=== PATIENT | female | born 1955 | race Caucasian/White ===

== ENCOUNTER → 2017-07-03 | Outpatient (CLI) | payer BC ==
--- NOTE | 2017-07-03 19:19 | Diagnostic Imaging Report ---
EXAMINATION: Bilateral breast ultrasound. INDICATION: Palpable lumps. The patient refuses mammography because of tenderness. TECHNIQUE: All four quadrants and the retroareolar region were examined on this study. FINDINGS: Right breast: At 2:30 position, 10 cm from the nipple, there is a cystic lesion measuring 2 x 1.2 x 1.6 cm. There is a 5 mm hypoechoic nodule within it with no internal vascularity seen. At 3:30 position, 6 cm from the nipple, there is a 9 mm simple cyst. In addition, two simple cysts are seen in the 6 o'clock zone, 5 cm from the nipple up to 9 mm in size. Left breast: The four quadrants and retroareolar region of the left breast demonstrate no underlying abnormality. IMPRESSION: Mildly complicated cystic lesion at 2:30 position, 10 cm from the nipple measuring 2 cm in size with a hypoechoic lesion within the cyst that demonstrates no internal vascularity. This is favored to be related to internal debris or clot rather than a solid nodule. Followup study in six months is recommended to ensure no adverse development. ACR BI-RADS Category 3: Probably benign findings. Dictated by: Dictated on workstation # [id number]
== END ==
LOC: RAD 10:52
PROVIDERS: ATTEND Nurse Practitioner Family
DX: N60.01 Solitary cyst of right breast (principal)

== ENCOUNTER 2017-07-10 11:15 | Outpatient (CLI) | payer BC ==
[~2017-07-10] VITALS: Ht 160 cm; Wt 108.9 kg
[2017-07-10] MEDS ORDERED: SENN-75 PO (14:34)
[2017-07-10] MEDS ORDERED: MAGN500C15 PO (14:34)
[2017-07-10] MEDS ORDERED: PANT40TA3 PO (14:34)
[2017-07-10] MEDS ORDERED: SIMV40TA4 PO (14:34)
[2017-07-10] MEDS ORDERED: RT-ALBUINH IH (14:34)
[2017-07-10] MEDS ORDERED: CHOL5000 PO (14:34)
[2017-07-10] MEDS ORDERED: ACYC400T PO (14:34)
[2017-07-10] MEDS ORDERED: GABA-488 PO (14:34)
[2017-07-10] MEDS ORDERED: LEVO75TA PO (14:34)
[2017-07-10] MEDS ORDERED: MONT10TA24 PO (14:34)
[2017-07-10] MEDS ORDERED: FLUT1DIS27 IH (14:34)
[2017-07-10] MEDS ORDERED: NAPR500T4 PO (14:34)
[2017-07-10] MEDS ORDERED: FLUT1BLS IH (14:34)
[2017-07-10] MEDS ORDERED: ASPI-586 PO (14:34)
== END 2017-07-10 14:35 ==
LOC: PREOP 11:15
PROVIDERS: ATTEND Surgery
DX: Z01.818 Encounter for other preprocedural examination (principal); K21.9 Gastro-esophageal reflux disease without esophagitis

== ENCOUNTER → 2017-07-15 | Outpatient (CLI) | payer BC ==
[~2017-07-15] MED LIST: ACYC400T PO; ASPI-586 PO; CHOL5000 PO; FLUT1BLS IH; FLUT1DIS27 IH; GABA-488 PO; LEVO75TA PO; MAGN500C15 PO; MONT10TA24 PO; NAPR500T4 PO; PANT40TA3 PO; RT-ALBUINH IH; SENN-75 PO; SIMV40TA4 PO
--- NOTE | 2017-07-15 09:51 | Diagnostic Imaging Report ---
PA and lateral views of the chest. Indication COPD. Findings: The lungs are clear. The heart size is normal. No effusion or pneumothorax Mediastinum and carla appear markable. Impression: Unremarkable exam. Dictated by: Dictated on workstation # [id number]
== END ==
LOC: RAD 09:21
PROVIDERS: ATTEND Nurse Practitioner Family
DX: J44.9 Chronic obstructive pulmonary disease, unspecified (principal)
CPT/HCPCS: 71020

== ENCOUNTER → 2017-07-16 | Day surgery (SDC) | payer BC ==
[~2017-07-16] VITALS: Ht 160 cm; Wt 108.9 kg
[~2017-07-16] MED LIST changes: +HURRICAINE EXT TUBE (BENZOCAINE) ONE; +HURRICAINE EXT TUBE (BENZOCAINE) XX PRN; +LACTATED RINGERS 1,000 ML IV STA; +MIDAZOLAM 2 MG/2 ML (VERSED) VIAL IVP PRN; +MIDAZOLAM 2 MG/2 ML (VERSED) VIAL ONE; +PROPOFOL INJECTION 50 ML IV ONE; +fentaNYL INJECTION 100 MCG/2 ML AMP IVP PRN
[2017-07-16 07:55] VITALS: BP 133/75
--- NOTE | 2017-07-16 08:55 | Progress Note-Pre Operative ---
Pre-Operative Progress Note H&P Reviewed The H&P was reviewed, patient examined and no changes noted. Time Seen by Provider: 08:50 Date H&P Reviewed: Jul 16, 2017 Time H&P Reviewed: 08:53 Pre-Operative Diagnosis: Dystonia, Gastritis NINO SAM DO Jul 16, 2017 08:55
--- NOTE | 2017-07-16 09:23 | Progress Note-Post Operative ---
Post-Operative Progess Note Surgeon (s)/Beer Merchant (s) Surgeon NINO SAM DO Beer Merchant: none Pre-Operative Diagnosis Dystonia, Gastritis Post-Operative Diagnosis same and hiatal hernia Procedure & Operative Findings Date of Procedure 07/16/17 Procedure Performed/Findings EGD with bx Anesthesia Type IV sedation by WATCH GUARD GATE Estimated Blood Loss Estimated blood loss (mL): scant Specimens/Packing Specimens Removed duodenal bx antral bx NINO SAM DO Jul 16, 2017 09:23
--- NOTE | 2017-07-16 09:24 | Endoscopy Discharge Instruct ---
Endo Procedure/Findings Findings 1.: Gastritis 2.: Hiatal Hernia Discharge Instructions - Activity: You might feel a little sleepy until tomorrow. This is due to the medicine you received to relax you. Until tomorrow, you should: NOT drive a car, operate machinery or power tools. NOT drink any alcoholic beverages. NOT make any important decisions or sign importortant papers. Do not return to work until tomorrow, unless otherwise instructed. Resume previous activities tomorrow. Diet: Start by taking liquids. If you tolerate liquids, advance to solid food. make appointment for one week Notify Physician - If you experience excessive bleeding, unusual abdominal pain, fever, or chest pain, contact your doctor immediately. Follow-Up: - I have received and understand the above instructions and will call my doctor if I have any further questions. Patient Signature Date Nurse Signature Other (Relationship) NINO SAM DO Jul 16, 2017 09:24
[2017-07-16 09:35] VITALS: BP 124/82
[2017-07-16 10:05] VITALS: BP 125/77
--- NOTE | 2017-07-16 19:49 | OPERATIVE REPORT ---
DATE OF SERVICE: 07/16/2017 PREOPERATIVE DIAGNOSES: 1. Gastritis: 2. Dystonia. POSTOPERATIVE DIAGNOSES: 1. Gastritis: 2. Dystonia. 3. Hiatal hernia. PROCEDURE: EGD with biopsy. SURGEON: Bj Gomez DO CENTER SPECIALISTS: None. ANESTHESIA: IV sedation by the MEDIA LIAISON OFFICER. SPECIMEN: Biopsy from the duodenum and one biopsy from antrum. BLOOD LOSS: Scant. FLUIDS: Per anesthesia. POSTOPERATIVE CONDITION: Stable. INDICATION FOR PROCEDURE: The patient is a 62-year-old female who has been having heartburn type symptoms, they also have been getting coarse and wanted to have EGD to check for reflux, also wanted to have her vocal cords looked at as she had a history of possible paralysis and she said she was worried about the vocal cords. FINDINGS: The patient had some erythema, almost duodenitis and some gastritis. She had a pretty large hiatal hernia, was able to get a couple views of its cord and did not see anything obvious. No large polyps appeared to be moving, took a picture. PROCEDURE NOTE: After informed consent was obtained, the patient was brought to the endoscopy suite, placed in the bed in the left lateral decubitus position. She was administered IV sedation and her vitals were monitored the entire time by the MEDIA LIAISON OFFICER. Inserted the scope, on the way in got a look at her cords, it was good. I was able to get into the esophagus and then down the esophagus into the stomach. Into the first portion of duodenum took a picture, there was a little bit of erythema and elected to do a biopsy here and then pulled back and did another biopsy in the antrum, which was also a little bit erythematous and then carefully pulled the scope back, retroflexed, and saw a pretty large hiatal hernia, took a picture of this and took a picture of the GE junction looked good and then pulled up the esophagus took another picture of the esophagus again this looked good and able to pull up out into the oropharynx, able to take a picture of the cords and did not see anything obvious, but again could not get a very good visualization. She is coughing a little bit and gagging but did get a picture, removed the scope. The patient tolerated the procedure and she was recovered in the endoscopy suite. Job ID: [id number] DocumentID: [id number] Dictated Date: 07/16/2017 09:27:00 Pharmacology Professor Date: 07/16/2017 19:48:24 Dictated By: BJ GOMEZ DO
== END | disposition home or self-care (01) ==
LOC: ENDO 07:50
PROVIDERS: ATTEND Surgery
DX: K29.60 Other gastritis without bleeding (principal); K44.9 Diaphragmatic hernia without obstruction or gangrene; R49.0 Dysphonia; J44.9 Chronic obstructive pulmonary disease, unspecified; Z88.0 Allergy status to penicillin; Z88.1 Allergy status to other antibiotic agents; Z88.2 Allergy status to sulfonamides; E03.9 Hypothyroidism, unspecified; N18.9 Chronic kidney disease, unspecified; E78.5 Hyperlipidemia, unspecified; G47.30 Sleep apnea, unspecified

== ENCOUNTER → 2017-07-23 | Outpatient (CLI) | payer BC ==
[~2017-07-23] MED LIST changes: -HURRICAINE EXT TUBE (BENZOCAINE) ONE; -HURRICAINE EXT TUBE (BENZOCAINE) XX PRN; -LACTATED RINGERS 1,000 ML IV STA; -MIDAZOLAM 2 MG/2 ML (VERSED) VIAL IVP PRN; -MIDAZOLAM 2 MG/2 ML (VERSED) VIAL ONE; -PROPOFOL INJECTION 50 ML IV ONE; +RT-ALBUTEROL SULF 2.5 MG/3 ML PRE-MIX VIAL INH ONE; -fentaNYL INJECTION 100 MCG/2 ML AMP IVP PRN
== END ==
LOC: RT 12:47
PROVIDERS: ATTEND Nurse Practitioner Family
DX: J44.9 Chronic obstructive pulmonary disease, unspecified (principal)
CPT/HCPCS: 94060; 94726; 94729

== ENCOUNTER 2017-10-15 07:58 | Day surgery (SDC) | payer BC ==
[2017-10-15] VITALS (16 sets, daily range): BP systolic 104–153; BP diastolic 46–98
[~2017-10-15] VITALS: Ht 160 cm; Wt 108.9 kg
[~2017-10-15 07:58] MED LIST changes: +NAPR-915 PO; -NAPR500T4 PO; -RT-ALBUTEROL SULF 2.5 MG/3 ML PRE-MIX VIAL INH ONE
[2017-10-15] MEDS ORDERED: LIDOCAINE 1% INJ 50 ML (XYLOCAINE) VIAL ONE (08:20)
[2017-10-15 09:23] LABS: ABSOLUTE RETIC # 55 10e9/L (24-90); BASOPHILS % (AUTO) 0 % (0-10); EOSINOPHILS # (AUTO) 0.1 10^3/uL (0.0-0.3); EOSINOPHILS % (AUTO) 2 % (0-10); HEMATOCRIT 43 % (35-52); HEMOGLOBIN 13.6 G/DL (11.5-16.0); LYMPHOCYTES # (AUTO) 2.1 X 10^3 (1.0-4.0); LYMPHOCYTES % (AUTO) 25 % (12-44); MEAN CORPUSCULAR HEMOGLOBIN 30 PG (25-34); MEAN CORPUSCULAR HGB CONC 31 G/DL (32-36); MEAN CORPUSCULAR VOLUME 97 FL (80-99); MEAN PLATELET VOLUME 11.6 FL (7.4-10.4); MONOCYTES # (AUTO) 0.9 X 10^3 (0.0-1.0); MONOCYTES % (AUTO) 10 % (0-12); NEUTROPHILS # (AUTO) 5.5 X 10^3 (1.8-7.8); NEUTROPHILS % (AUTO) 64 % (42-75); PLATELET COUNT 200 10^3/uL (130-400); RED BLOOD COUNT 4.49 10^6/uL (4.35-5.85); RED CELL DISTRIBUTION WIDTH 13.2 % (10.0-14.5); RETICULOCYTE % 1.22 % (0.50-2.40); WHITE BLOOD COUNT 8.7 10^3/uL (4.3-11.0)
[2017-10-15 09:37] LABS: PROTHROMBIN TIME PATIENT 13.3 SEC (12.2-14.7)
[2017-10-15 09:47] LABS: BASOPHILS % (MANUAL) 2 %; EOSINOPHILS % (MANUAL) 2 %; LYMPHOCYTES % (MANUAL) 15 %; MONOCYTES % (MANUAL) 12 %; NEUTROPHILS % (MANUAL) 60 %; RBC MORPH NORMAL; REACTIVE LYMPHOCYTES 9 %
[2017-10-15] MEDS: NS IV 1000 ML 1,000 ML IV STA (10:20)
[2017-10-15] MEDS: fentaNYL INJECTION 100 MCG/2 ML AMP IVP PRN (10:35)
[2017-10-15] MEDS: MIDAZOLAM 2 MG/2 ML (VERSED) VIAL IVP PRN (10:35)
[2017-10-15] MEDS: LIDOCAINE 1% INJ 20 ML (XYLOCAINE) VIAL INJ ONE (10:35)
[2017-10-15] MEDS ORDERED: DOCU100C37 PO (10:45)
[2017-10-15] MEDS: HYDROcodone/APAP 5 MG/325 MG (LORTAB) TAB PO PRN (11:25)
--- NOTE | 2017-10-15 11:36 | Diagnostic Imaging Report ---
INDICATION: Monoclonal gammopathy. The patient was brought into the CT suite and placed on the table in the prone position. Axial imaging through the pelvis was performed to evaluate appropriate entry site. Skin of low back was prepped and draped in usual sterile fashion. Small amount of 1% lidocaine was utilized with local anesthesia. Conscious sedation was also performed utilizing radiology nursing and constipation monitoring. Patient was administered a total of 3 mg of Versed and 75 mcg of fentanyl intravenously. Total sedation time is 12 minutes. The bone marrow needle was advanced, placed with its tip adjacent to the posterior aspect of the right iliac bone. Bone marrow drill was utilized to advance the needle into the marrow. Two aspirates were obtained. Next, a bone marrow core was obtained. Needle was withdrawn. Hemostasis was obtained using manual compression. The patient tolerated the procedure well and left department in stable condition. IMPRESSION: Successful CT-guided bone marrow aspiration and biopsy, utilizing conscious sedation. Dictated by: Dictated on workstation # [id number]
--- NOTE | 2017-10-15 14:43 | Pre-Op Note & Conscious Sedat ---
Pre-Operative Progress Note H&P Reviewed The H&P was reviewed, patient examined and no changes noted. Date H&P Reviewed: Oct 15, 2017 Time H&P Reviewed: 09:00 Pre-Op Diagnosis: Monoclonal gammopathy Conscious Sedation Pre-Proced Time Reviewed: 09:00 ASA Class: 2 Airway Mallampati Classification: ([place] appropriate class) I. II. III, IV Lungs Heart ASA score ASA 1: a normal healthy patient ASA 2: a patient with a mild systemic disease (mid diabetes, controlled hypertension, obesity ASA 3: a patient with a severe systemic disease that limits activity (angina , COPD, prior Myocardial infarction) ASA 4: a patient with an incapacitating disease that is a constant threat to life (CHF, renal failure) ASA 5: a moribund patient not expected to survive 24 hrs. (ruptured aneurysm) ASA 6: a declared brain patient whose organs are being harvested. For emergent operations, add the letter E after the classification Grade 1 Sedation Plan: Analgesia, Amnesia, Plan communicated to team members, Discussed options with patient/fam, Discussed risks with patient/fam Note The patient is an appropriate candidate to undergo the planned procedure, sedation, and anesthesia. The patient immediately re-assessed prior to indication. LIDA GRADY MD Oct 15, 2017 14:43
== END 2017-10-15 13:22 | disposition home or self-care (01) ==
LOC: RAD 07:58 → SURG 11:06 → RAD 13:22
PROVIDERS: ATTEND Internal Medicine Hematology & Oncology
DX: D47.2 Monoclonal gammopathy (principal)
CPT/HCPCS: 36415; 38222; 77012; 85007; 85027; 85045; 85610; 85730

== ENCOUNTER → 2017-10-28 | Outpatient (CLI) | payer BC ==
[~2017-10-28] MED LIST changes: +DOCU100C37 PO
[2017-10-28 13:07] LABS: CALCIUM 9.6 MG/DL (8.5-10.1); CREATININE SERUM 1.49 MG/DL (0.60-1.30); POTASSIUM 4.4 MMOL/L (3.6-5.0)
== END ==
LOC: LAB 12:30
PROVIDERS: ATTEND Internal Medicine Hematology & Oncology
DX: D47.2 Monoclonal gammopathy (principal); N18.9 Chronic kidney disease, unspecified
CPT/HCPCS: 36415; 80048

== ENCOUNTER 2017-11-06 12:47 | Outpatient (RCR) | payer BC ==
[2017-09-16 14:35] LABS: BASOPHILS % (AUTO) 0 % (0-10); EOSINOPHILS # (AUTO) 0.2 10^3/uL (0.0-0.3); EOSINOPHILS % (AUTO) 2 % (0-10); HEMATOCRIT 38 % (35-52); HEMOGLOBIN 12.3 G/DL (11.5-16.0); LYMPHOCYTES # (AUTO) 1.7 X 10^3 (1.0-4.0); LYMPHOCYTES % (AUTO) 24 % (12-44); MEAN CORPUSCULAR HEMOGLOBIN 31 PG (25-34); MEAN CORPUSCULAR HGB CONC 32 G/DL (32-36); MEAN CORPUSCULAR VOLUME 95 FL (80-99); MEAN PLATELET VOLUME 11.9 FL (7.4-10.4); MONOCYTES # (AUTO) 0.6 X 10^3 (0.0-1.0); MONOCYTES % (AUTO) 9 % (0-12); NEUTROPHILS # (AUTO) 4.7 X 10^3 (1.8-7.8); NEUTROPHILS % (AUTO) 65 % (42-75); PLATELET COUNT 177 10^3/uL (130-400); RED BLOOD COUNT 3.99 10^6/uL (4.35-5.85); RED CELL DISTRIBUTION WIDTH 13.4 % (10.0-14.5); WHITE BLOOD COUNT 7.2 10^3/uL (4.3-11.0)
[2017-09-16 14:53] LABS: ALBUMIN 3.9 GM/DL (3.2-4.5); BILIRUBIN,TOTAL 0.3 MG/DL (0.1-1.0); CALCIUM 9.5 MG/DL (8.5-10.1); CREATININE SERUM 1.49 MG/DL (0.60-1.30); POTASSIUM 4.6 MMOL/L (3.6-5.0); TOTAL PROTEIN 7.2 GM/DL (6.4-8.2)
== END 2017-12-15 | disposition home or self-care (01) ==
LOC: ONC 12:47
PROVIDERS: ATTEND Internal Medicine Hematology & Oncology
DX: D47.2 Monoclonal gammopathy (principal); N18.9 Chronic kidney disease, unspecified; J44.9 Chronic obstructive pulmonary disease, unspecified; E78.5 Hyperlipidemia, unspecified; E03.9 Hypothyroidism, unspecified; K21.9 Gastro-esophageal reflux disease without esophagitis; E66.9 Obesity, unspecified; Z68.41 Body mass index [BMI] 40.0-44.9, adult; Z87.891 Personal history of nicotine dependence; Z79.82 Long term (current) use of aspirin; Z79.899 Other long term (current) drug therapy; Z98.84 Bariatric surgery status
CPT/HCPCS: 80053; 82784; 83883; 84443; 85025; 99213; 99214

== ENCOUNTER → 2017-11-06 | Outpatient (CLI) | payer BC ==
--- NOTE | 2017-11-06 14:12 | Diagnostic Imaging Report ---
Indication: Bilateral hand pain. Multiple views of bilateral hands were obtained. The MCP and interphalangeal joints are well-maintained. No osseous erosion or bone production is seen. No soft tissue calcification is seen. No fractures are identified. The carpi are unremarkable bilaterally. Impression: Unremarkable bilateral hand radiographs. Dictated by: Dictated on workstation # [id number]
== END ==
LOC: RAD 13:38
PROVIDERS: ATTEND Internal Medicine Rheumatology
DX: M19.039 Primary osteoarthritis, unspecified wrist (principal)

== ENCOUNTER → 2017-12-15 | Outpatient (CLI) | payer BC ==
[2017-12-15 14:49] LABS: BASOPHILS % (AUTO) 0 % (0-10); EOSINOPHILS # (AUTO) 0.1 10^3/uL (0.0-0.3); EOSINOPHILS % (AUTO) 2 % (0-10); HEMATOCRIT 39 % (35-52); HEMOGLOBIN 12.3 G/DL (11.5-16.0); LYMPHOCYTES # (AUTO) 1.5 X 10^3 (1.0-4.0); LYMPHOCYTES % (AUTO) 21 % (12-44); MEAN CORPUSCULAR HEMOGLOBIN 31 PG (25-34); MEAN CORPUSCULAR HGB CONC 32 G/DL (32-36); MEAN CORPUSCULAR VOLUME 96 FL (80-99); MEAN PLATELET VOLUME 11.9 FL (7.4-10.4); MONOCYTES # (AUTO) 0.6 X 10^3 (0.0-1.0); MONOCYTES % (AUTO) 8 % (0-12); NEUTROPHILS # (AUTO) 5.1 X 10^3 (1.8-7.8); NEUTROPHILS % (AUTO) 70 % (42-75); PLATELET COUNT 184 10^3/uL (130-400); RED BLOOD COUNT 4.03 10^6/uL (4.35-5.85); RED CELL DISTRIBUTION WIDTH 13.4 % (10.0-14.5); WHITE BLOOD COUNT 7.3 10^3/uL (4.3-11.0)
[2017-12-15 15:05] LABS: BILIRUBIN,URINE NEGATIVE (NEGATIVE); CLARITY,URINE CLEAR; COLOR,URINE YELLOW; GLUCOSE, URINE (UA) NEGATIVE (NEGATIVE); KETONES,URINE NEGATIVE (NEGATIVE); LEUKOCYTE ESTERASE ,URINE 2+ (NEGATIVE); NITRITE,URINE NEGATIVE (NEGATIVE); PH,URINE 5 (5-9); PROTEIN,URINE NEGATIVE (NEGATIVE); UROBILINOGEN,URINE NORMAL (NORMAL)
[2017-12-15 15:06] LABS: ALBUMIN 4.1 GM/DL (3.2-4.5); CALCIUM 9.2 MG/DL (8.5-10.1); CREATININE SERUM 1.49 MG/DL (0.60-1.30); PHOSPHORUS 2.2 MG/DL (2.3-4.7); POTASSIUM 3.9 MMOL/L (3.6-5.0)
[2017-12-15 15:17] LABS: BAND NEUTROPHILS 0 %; BASOPHILS % (MANUAL) 0 %; EOSINOPHILS % (MANUAL) 0 %; LYMPHOCYTES % (MANUAL) 13 %; MONOCYTES % (MANUAL) 7 %; NEUTROPHILS % (MANUAL) 80 %
[2017-12-15 15:35] LABS: BACTERIA,URINE NEGATIVE /HPF
== END ==
LOC: LAB 14:18
PROVIDERS: ATTEND Nurse Practitioner Family
DX: N18.3 Chronic kidney disease, stage 3 (moderate) (principal); R82.99 Other abnormal findings in urine
CPT/HCPCS: 36415; 80069; 81000; 82570; 84156; 85007; 85027; 87088

== ENCOUNTER → 2018-01-14 | Outpatient (CLI) | payer BC ==
--- NOTE | 2018-01-14 20:19 | Diagnostic Imaging Report ---
INDICATION: Followup right breast lesion. COMPARISON: Prior right breast ultrasound from 07/03/2017. EXAMINATION: Sonographic interrogation of the right breast was performed. FINDINGS: Previously noted cystic lesion at the 2:30 location, 10 cm from the nipple, is again noted measuring 1.5 x 1.2 x 2.0 cm, similar to prior exam. A small nodule along the periphery of the lesion is again seen and appears to be stable. No internal vascularity is present. IMPRESSION: BI-RADS category 3 Stable complex cystic lesion at the 2:30 location of the right breast, 10 cm from the nipple, when compared to examination from six months earlier. Additional six-month followup is recommended to confirm stability. ACR BI-RADS Category 3: Probably benign findings. Result letter will be mailed to the patient. Note: At least 10% of breast cancer is not imaged by mammography. Dictated by: Dictated on workstation # [id number]
== END ==
LOC: RAD 10:03
PROVIDERS: ATTEND Nurse Practitioner Family
DX: N60.01 Solitary cyst of right breast (principal)

== ENCOUNTER → 2018-01-14 | Outpatient (CLI) | payer BC ==
--- NOTE | 2018-01-14 12:01 | Diagnostic Imaging Report ---
INDICATION: Urinary infections. FINDINGS: Pre-and postvoid imaging of the bladder was performed. Prevoid bladder volume is 235 mL. Post void volume is 45 mL. No bladder wall thickening or mass is seen. IMPRESSION: Small post void residual bladder volume. Dictated by: Dictated on workstation # [id number]
--- NOTE | 2018-01-14 18:32 | Diagnostic Imaging Report ---
INDICATION: Chronic renal disease. TECHNIQUE: Bilateral renal sonography performed in the routine fashion, renal artery Doppler was also attempted. FINDINGS: The right kidney measured 10.3 x 3.9 x 5.3 cm. The left kidney measured 10.9 x 4.4 x 4.7 cm. Both kidneys showed no hydronephrosis. There is some cortical thinning of both kidneys. There were bilateral ureteral jets visualized in the bladder. The bladder had otherwise normal appearance. Renal arteries Doppler was limited. The right proximal renal artery could not be visualized. The mid and distal portion of the renal artery on the right side showed normal velocities with normal waveforms. The left renal artery could not be visualized in its proximal or midportion but distal portion showed normal waveforms with no elevated velocities. Resistive index in the arcuate artery on the right side was 0.71 to 0.82. Resistive index on the left side in the arcuate artery was 0.66 to 0.75. IMPRESSION: Kidneys showed normal length on both sides but there was some cortical thinning. There is no hydronephrosis or renal mass. There were bilateral ureteral jets. Renal arteries Doppler was limited but showed no definitive abnormality. Dictated by: Dictated on workstation # [id number]
== END ==
LOC: RAD 10:00
PROVIDERS: ATTEND Internal Medicine Nephrology
DX: C83.30 Diffuse large B-cell lymphoma, unspecified site (principal); N39.0 Urinary tract infection, site not specified; N18.3 Chronic kidney disease, stage 3 (moderate); M19.90 Unspecified osteoarthritis, unspecified site; G47.33 Obstructive sleep apnea (adult) (pediatric); D47.2 Monoclonal gammopathy; R60.9 Edema, unspecified
CPT/HCPCS: 76857; 93975

== ENCOUNTER 2018-02-19 13:00 | Outpatient (RCR) | payer BC ==
[2018-01-27 12:45] VITALS: BP 122/60
[2018-01-27 13:40] VITALS: BP 122/80
[2018-01-29 13:00] VITALS: BP 140/60
[2018-01-29 13:41] VITALS: BP 114/70
[2018-02-10 13:30] VITALS: BP 130/60
[2018-02-10 14:00] VITALS: BP 130/60
[2018-02-12 13:00] VITALS: BP 138/70
[2018-02-12 14:00] VITALS: BP 130/60
[2018-02-19 13:00] VITALS: BP 120/50
[2018-02-19 14:00] VITALS: BP 120/80
== END 2018-02-24 | disposition home or self-care (01) ==
LOC: PULM 13:00
PROVIDERS: ATTEND Nurse Practitioner Family
DX: R06.00 Dyspnea, unspecified (principal); J44.9 Chronic obstructive pulmonary disease, unspecified; R09.02 Hypoxemia

== ENCOUNTER 2018-03-09 12:30 | Outpatient (RCR) | payer BC | END 2018-03-27 | disposition home or self-care (01) | LOC: ONC 12:30 | PROVIDERS: ATTEND Internal Medicine Hematology & Oncology | DX: D47.2 Monoclonal gammopathy (principal); E66.9 Obesity, unspecified; K21.9 Gastro-esophageal reflux disease without esophagitis; N18.9 Chronic kidney disease, unspecified; Z87.891 Personal history of nicotine dependence; E03.9 Hypothyroidism, unspecified; K59.00 Constipation, unspecified; J44.9 Chronic obstructive pulmonary disease, unspecified; E78.5 Hyperlipidemia, unspecified; Z98.84 Bariatric surgery status | CPT/HCPCS: 99213 ==

== ENCOUNTER → 2018-03-09 | Outpatient (CLI) | payer BC ==
[2018-03-09 12:59] LABS: HEMOGLOBIN 12.3 G/DL (11.5-16.0); MEAN PLATELET VOLUME 11.8 FL (7.4-10.4); RED BLOOD COUNT 4.14 10^6/uL (4.35-5.85); RED CELL DISTRIBUTION WIDTH 13.6 % (10.0-14.5); WHITE BLOOD COUNT 8.4 10^3/uL (4.3-11.0)
[2018-03-09 13:16] LABS: BILIRUBIN,TOTAL 0.3 MG/DL (0.1-1.0); CALCIUM 9.5 MG/DL (8.5-10.1); CREATININE SERUM 1.61 MG/DL (0.60-1.30); POTASSIUM 4.4 MMOL/L (3.6-5.0); TOTAL PROTEIN 7.3 GM/DL (6.4-8.2)
== END ==
LOC: LAB 12:43
PROVIDERS: ATTEND Internal Medicine Hematology & Oncology
DX: D47.2 Monoclonal gammopathy (principal); N18.9 Chronic kidney disease, unspecified
CPT/HCPCS: 36415; 80053; 85027

== ENCOUNTER → 2018-05-06 | Outpatient (CLI) | payer BC ==
[2018-05-06 16:05] LABS: BASOPHILS % (AUTO) 0 % (0-10); EOSINOPHILS # (AUTO) 0.2 10^3/uL (0.0-0.3); EOSINOPHILS % (AUTO) 3 % (0-10); HEMATOCRIT 38 % (35-52); HEMOGLOBIN 12.3 G/DL (11.5-16.0); LYMPHOCYTES # (AUTO) 1.6 X 10^3 (1.0-4.0); LYMPHOCYTES % (AUTO) 22 % (12-44); MEAN CORPUSCULAR HEMOGLOBIN 32 PG (25-34); MEAN CORPUSCULAR HGB CONC 33 G/DL (32-36); MEAN CORPUSCULAR VOLUME 97 FL (80-99); MEAN PLATELET VOLUME 11.7 FL (7.4-10.4); MONOCYTES # (AUTO) 0.6 X 10^3 (0.0-1.0); MONOCYTES % (AUTO) 8 % (0-12); NEUTROPHILS # (AUTO) 4.9 X 10^3 (1.8-7.8); NEUTROPHILS % (AUTO) 67 % (42-75); PLATELET COUNT 188 10^3/uL (130-400); RED BLOOD COUNT 3.87 10^6/uL (4.35-5.85); RED CELL DISTRIBUTION WIDTH 13.2 % (10.0-14.5); WHITE BLOOD COUNT 7.4 10^3/uL (4.3-11.0)
[2018-05-06 16:28] LABS: BILIRUBIN,TOTAL 0.4 MG/DL (0.1-1.0); CALCIUM 9.3 MG/DL (8.5-10.1); CREATININE SERUM 1.4 MG/DL (0.60-1.30); POTASSIUM 3.9 MMOL/L (3.6-5.0); TOTAL PROTEIN 7.2 GM/DL (6.4-8.2)
== END ==
LOC: LAB 14:41
PROVIDERS: ATTEND Internal Medicine Hematology & Oncology
DX: D47.2 Monoclonal gammopathy (principal)
CPT/HCPCS: 36415; 80053; 83883; 85025

== ENCOUNTER → 2018-05-06 | Outpatient (CLI) | payer BC ==
[2018-05-06 16:06] LABS: HEMOGLOBIN 12.3 G/DL (11.5-16.0); RED BLOOD COUNT 3.87 10^6/uL (4.35-5.85); WHITE BLOOD COUNT 7.4 10^3/uL (4.3-11.0)
[2018-05-06 16:07] LABS: MEAN PLATELET VOLUME 11.7 FL (7.4-10.4); RED CELL DISTRIBUTION WIDTH 13.2 % (10.0-14.5)
[2018-05-06 16:15] LABS: BILIRUBIN,URINE NEGATIVE (NEGATIVE); CLARITY,URINE CLEAR; COLOR,URINE YELLOW; GLUCOSE, URINE (UA) NEGATIVE (NEGATIVE); KETONES,URINE NEGATIVE (NEGATIVE); LEUKOCYTE ESTERASE ,URINE 2+ (NEGATIVE); NITRITE,URINE POSITIVE (NEGATIVE); PH,URINE 5 (5-9); PROTEIN,URINE NEGATIVE (NEGATIVE); UROBILINOGEN,URINE NORMAL (NORMAL)
[2018-05-06 16:24] LABS: BACTERIA,URINE LARGE /HPF; RBC,URINE RARE /HPF; WBC,URINE 50-100 /HPF
[2018-05-06 16:28] LABS: CREATININE SERUM 1.4 MG/DL (0.60-1.30); POTASSIUM 3.9 MMOL/L (3.6-5.0)
[2018-05-06 16:29] LABS: CALCIUM 9.3 MG/DL (8.5-10.1); MAGNESIUM 1.8 MG/DL (1.8-2.4); PHOSPHORUS 2.8 MG/DL (2.3-4.7); URIC ACID 7.8 MG/DL (2.6-7.2)
== END ==
LOC: LAB 14:19
PROVIDERS: ATTEND Internal Medicine Nephrology
DX: N18.3 Chronic kidney disease, stage 3 (moderate) (principal); N39.0 Urinary tract infection, site not specified; C83.30 Diffuse large B-cell lymphoma, unspecified site; D47.2 Monoclonal gammopathy; R60.9 Edema, unspecified; M19.91 Primary osteoarthritis, unspecified site; G47.33 Obstructive sleep apnea (adult) (pediatric); J44.9 Chronic obstructive pulmonary disease, unspecified; Z98.0 Intestinal bypass and anastomosis status
CPT/HCPCS: 80069; 81000; 82306; 82728; 83540; 83735; 83970; 84100; 84550; 86038; 86160; 87077; 87088; 87186

== ENCOUNTER 2018-09-08 23:32 | Inpatient (IN) | payer BC ==
[~2018-09-08] VITALS: Ht 160 cm; Wt 118.5 kg
[2018-09-08] MEDS ORDERED: LACTATED RINGERS 1,000 ML IV ONE (23:58)
[2018-09-09] MEDS ORDERED: HYOSCYAMINE 0.125 MG (LEVSIN) TAB PO ONE ×2 (00:15→05:30)
[2018-09-09] MEDS ORDERED: KETOROLAC 30 MG/ML VIAL IVP ONE (00:15)
--- NOTE | 2018-09-09 00:35 | NUR ---
UNABLE TO OBTAIN IV ACCESS AFTER NUMEROUS ATTEMPTS BY MULTIPLE RN'S.
--- NOTE | 2018-09-09 00:36 | ED GI ---
General Chief Complaint: Abdominal/GI Problems Stated Complaint: N,V,D, CRAMPING Nursing Triage Note: PT TO ROOM #6 VIA ED W/C BY ED STAFF. A&OX4. C/O MEDIAL ABD CRAMPING AND N/V/D. PT REPORTS SYMPTOMS BEGAN 09/08/18 @ APPROX 1800. REPORTS <10 EPIOSDES OF EMSIS AND <5 EPISODES OF DIARRHEA. DENIES FEVER OR CHILLS. DURING TRIAGE PT RETCHING AND MOANING IN PAIN. PT A REFUSED FLU SWAB STATING, "IM STILL RECOVERING FROM THE FLU SWAB THEY DID X2 WKS AGO!" Sepsis Screen: No Definite Risk Source of Information: Patient (EXTREMELY DIFFICULTY AND INCONSISTENT HISTORIAN AND IS NOT FORTHCOMING ABOUT MUCH OF HER PAST MEDICAL HISTORY), Spouse History of Present Illness Date Seen by Provider: Sep 08, 2018 Time Seen by Provider: 23:58 Initial Comments PT ARRIVES VIA POV FROM HOME, WITH C/O NAUSEA/VOMITING/DIARRHEA/ABDOMINAL CRAMPING SINCE 1800 TONIGHT STATES SHE HAD A CHEESEBURGER FOR BREAKFAST TODAY, AND WAS FINE ALL DAY NO SICK CONTACTS OR SUSPICIOUS FOODS AROUND 1800 TONIGHT SHE BEGAN TO HAVE MID ABDOMINAL CRAMPING, THEN DIARRHEA, THEN NAUSEA AND VOMITING STATES SHE HAS >5 <10 EPISODES EACH OF VOMITING AND DIARRHEA NO FEVER STATES SHE HAS HAD ABDOMINAL HERNIA REPAIRED X 2 YEARS AGO, AND IT HAS RECURRED BUT HAS NOT SOUGHT CARE TO HAVE IT REPAIRED AGAIN. PT HAS HAD APPY, MARCE, HYST/BSO Allergies and Home Medications Allergies Coded Allergies: Penicillins (Verified Allergy, Unknown, RASH, 07/10/17) Sulfa (Sulfonamide Antibiotics) (Verified Allergy, Unknown, RASH, 07/10/17 ) adhesive tape (Verified Allergy, Unknown, HIVES, 07/10/17) cephalexin (Verified Allergy, Unknown, RASH, 07/10/17) Home Medications Acyclovir 400 Mg Tablet, 400 MG PO BID, (Reported) Albuterol Sulfate 1 Puff Puff, 2 PUFF IH Q4H PRN for WHEEZING, (Reported) 1 PUFF = 90 MCG Aspirin 81 Mg Tablet.dr, 81 MG PO HS, (Reported) Cholecalciferol (Vitamin D3) 5,000 Unit Capsule, 5,000 UNIT PO DAILY, (Reported) Docusate Sodium 100 Mg Capsule, 100 MG PO DAILY, (Reported) Fluticasone/Salmeterol 1 Each Blst.w.dev, 1 EACH IH BID, (Reported) Gabapentin 300 Mg Capsule, 300 MG PO TID, (Reported) Levothyroxine Sodium 75 Mcg Tablet, 75 MCG PO HS, (Reported) Magnesium Oxide 500 Mg Capsule, 500 MG PO DAILY, (Reported) Montelukast Sodium 10 Mg Tablet, 10 MG PO HS, (Reported) Naproxen 500 Mg Tablet, 500 MG PO BID, (Reported) Pantoprazole Sodium 40 Mg Tablet.dr, 40 MG PO DAILY, (Reported) Simvastatin 40 Mg Tablet, 40 MG PO HS, (Reported) Patient Home Medication List Home Medication List Reviewed: Yes Review of Systems Review of Systems Constitutional: no symptoms reported Respiratory: No Symptoms Reported Cardiovascular: No Symptoms Reported Gastrointestinal: See HPI, Abdominal Pain, Diarrhea, Nausea, Poor Appetite, Poor Fluid Intake, Vomiting Genitourinary: No Symptoms Reported Musculoskeletal: no symptoms reported Past Ltmrrab-Llwzfg-Bevxoo Hx Patient Social History Alcohol Use: Denies Use Recreational Drug Use: No Smoking Status: Former Smoker (1 PPD, QUIT 2000) Former Smoker, Quit: Jul 28, 2000 Recent Foreign Travel: No Contact w/Someone Who Travel: No Recent Infectious Disease Expo: No Recent Hopitalizations: No Immunizations Up To Date Date of Pneumonia Vaccine: May 18, 2015 Date of Influenza Vaccine: Apr 28, 2017 Seasonal Allergies Seasonal Allergies: Yes Past Medical History Surgeries: Yes (HERNIA REPAIR X 2; HYST/BSO; EGD 06/2017; BREAST IMPLANTS; INTESTINAL BYPASS 1978--ILEO-JEJUNAL BYPASS FOR BARIATRIC SURGERY; ) Abdominal, Adenoidectomy, Appendectomy, Breast, Gallbladder, Hysterectomy, Oophorectomy, Tonsillectomy, Tubal Ligation Respiratory: Yes COPD Currently Using CPAP: Yes Cardiac: Yes High Cholesterol Neurological: No NUCLEAR MEDICINE PET CT TECHNOLOGIST History: Hysterectomy, Menopausal Genitourinary: Yes Renal Failure, UTI-Chronic Gastrointestinal: Yes (S/P MARCE, APPY; GASTRITIS) Abdominal Hernia, Gastroesophageal Reflux, Gall Bladder Disease Musculoskeletal: Yes Arthritis Endocrine: Yes (OBESITY) Hypothyroidsim Cancer: Yes (PT REPORTS SHE HAS BEEN DX WITH "B-CELL LYMPHOMA" OVER A YEAR AGO , BUT NO TREATMENT, PER PT ON 09/09/18--STATES SHE HAS SEEN DR. JOHNSON--B CELL LYMPHOMA BY BONE MARROW BIOPSY 09/2017) Lymphoma Did You Recieve Any Treatments: No Psychosocial: Yes Anxiety Integumentary: No Blood Disorders: No Physical Exam Vital Signs Vital Signs - First Documented 09/09/18 00:00 Temp 97.6 Pulse 66 Resp 18 B/P (MAP) 162/82 (108) Pulse Ox 98 O2 Delivery Room Air Capillary Refill : Less Than 3 Seconds Height/Weight/BMI Height: 5'3.00" Weight: 230lbs. 0.6oz. 104.256238mz; 42.7 BMI Method:Stated General Appearance: obese, other (VERY DRAMATIC, MOANING VERY LOUDLY, HARSH/ LOUD FORCED DRY HEAVES. 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, no motor/sensory deficits, alert, oriented x 3 Skin: warm/dry, pallor; No rash Focused Exam Lactate Level 09/09/18 01:49: Lactic Acid Level 2.25*H 09/09/18 04:00: Lactic Acid Level 2.89*H Lactic Acid Level Laboratory Tests Test 09/09/18 01:49 09/09/18 04:00 Lactic Acid Level 2.25 MMOL/L (0.50-2.00) *H 2.89 MMOL/L (0.50-2.00) *H Progress/Results/Core Measures Results/Orders Lab Results Laboratory Tests Test 09/09/18 01:49 09/09/18 04:00 Range/Units White Blood Count 22.1 H 4.3-11.0 10^3/uL Red Blood Count 4.79 4.35-5.85 10^6/uL Hemoglobin 14.7 11.5-16.0 G/DL Hematocrit 45 35-52 % Mean Corpuscular Volume 95 80-99 FL Mean Corpuscular Hemoglobin 31 25-34 PG Mean Corpuscular Hemoglobin Concent 32 32-36 G/DL Red Cell Distribution Width 13.3 10.0-14.5 % Platelet Count 211 130-400 10^3/uL Mean Platelet Volume 11.9 H 7.4-10.4 FL Neutrophils (%) (Auto) 91 H 42-75 % Lymphocytes (%) (Auto) 4 L 12-44 % Monocytes (%) (Auto) 5 0-12 % Eosinophils (%) (Auto) 0 0-10 % Basophils (%) (Auto) 0 0-10 % Neutrophils # (Auto) 20.1 H 1.8-7.8 X 10^3 Lymphocytes # (Auto) 0.9 L 1.0-4.0 X 10^3 Monocytes # (Auto) 1.2 H 0.0-1.0 X 10^3 Eosinophils # (Auto) 0.0 0.0-0.3 10^3/uL Basophils # (Auto) 0.0 0.0-0.1 10^3/uL Neutrophils % (Manual) 90 % Lymphocytes % (Manual) 3 % Monocytes % (Manual) 2 % Band Neutrophils 5 % Blood Morphology Comment NORMAL Sodium Level 141 135-145 MMOL/L Potassium Level 3.8 3.6-5.0 MMOL/L Chloride Level 108 H 98-107 MMOL/L Carbon Dioxide Level 19 L 21-32 MMOL/L Anion Gap 14 5-14 MMOL/L Blood Urea Nitrogen 27 H 7-18 MG/DL Creatinine 1.41 H 0.60-1.30 MG/DL Estimat Glomerular Filtration Rate 38 BUN/Creatinine Ratio 19 Glucose Level 187 H 70-105 MG/DL Lactic Acid Level 2.25 *H 2.89 *H 0.50-2.00 MMOL/L Calcium Level 9.1 8.5-10.1 MG/DL Corrected Calcium 9.1 8.5-10.1 MG/DL Magnesium Level 1.4 L 1.8-2.4 MG/DL Total Bilirubin 0.4 0.1-1.0 MG/DL Aspartate Amino Transf (AST/SGOT) 25 5-34 U/L Alanine Aminotransferase (ALT/SGPT) 32 0-55 U/L Alkaline Phosphatase 94 40-136 U/L Total Protein 7.4 6.4-8.2 GM/DL Albumin 4.0 3.2-4.5 GM/DL Amylase Level 63 25-125 U/L Lipase 38 8-78 U/L My Orders Orders - SHAYNE,RADHA K DO Saline Lock/Iv-Start (09/08/18 23:58) Monitor-Rhythm Ecg Trace Only (09/08/18 23:58) Amylase (09/08/18 23:58) Cbc With Automated Diff (09/08/18 23:58) Comprehensive Metabolic Panel (09/08/18 23:58) Lipase (09/08/18 23:58) Magnesium (09/08/18 23:58) Ua Culture If Indicated (09/08/18 23:58) Saline Lock/Iv-Start (09/08/18 23:58) Lactated Ringers (Lr 1000 Ml Iv Solution (09/08/18 23:58) Ondansetron Injection (Zofran Injectio (09/09/18 00:00) Hyoscyamine Sl Tablet (Levsin Sl Tablet) (09/09/18 00:15) Ketorolac Injection (Toradol Injection) (09/09/18 00:15) Ct Abdomen/Pelvis Wo (09/09/18 00:05) Acute Abd Series (09/09/18 00:05) Lactic Acid Analyzer (09/09/18 01:46) Blood Culture (09/09/18 01:46) Manual Differential (09/09/18 01:49) Magnesium 1 Gm/100 Ml Ivpb (Magnesium Cazares (09/09/18 02:45) Saline Lock/Iv-Start (09/09/18 03:52) Lactated Ringers (Lr 1000 Ml Iv Solution (09/09/18 03:52) Medications Given in ED Current Medications Medications Dose Ordered Sig/Dehsawn Route Start Time Stop Time Status Last Admin Dose Admin Hyoscyamine Sulfate 0.25 mg ONCE ONCE PO 09/09/18 00:15 09/09/18 00:16 DC 09/09/18 02:10 0.25 MG Ketorolac Tromethamine 30 mg ONCE ONCE IVP 09/09/18 00:15 09/09/18 00:16 DC 09/09/18 02:10 30 MG Lactated Ringer's 1,000 ml @ 0 mls/hr Q0M ONCE IV 09/08/18 23:58 09/09/18 00:01 DC 09/09/18 02:10 0 MLS/HR Lactated Ringer's 1,000 ml @ 0 mls/hr Q0M ONCE IV 09/09/18 03:52 09/09/18 04:58 DC 09/09/18 04:00 0 MLS/HR Ondansetron HCl 8 mg ONCE ONCE IVP 09/09/18 00:00 09/09/18 00:01 DC 09/09/18 02:10 8 MG Vital Signs/I&O 09/09/18 00:00 Temp 97.6 Pulse 66 Resp 18 B/P (MAP) 162/82 (108) Pulse Ox 98 O2 Delivery Room Air Blood Pressure Mean: 108 Progress Progress Note : Progress Note MULTIPLE ATTEMPTS TO GAIN IV ACCESS, BY MULTIPLE STAFF MEMBERS, INCLUDING ULTRASOUND GUIDED EJ ATTEMPTS, WERE UNSUCCESSFUL PT STATES SHE HAS HAD TO HAVE MULTIPLE CENTRAL LINES AND PICC LINES IN THE PAST , FOR POOR IV ACCESS DR. GOODRICH CONTACTED FOR CENTRAL LINE PLACEMENT ALL SYMPTOMS RESOLVED WITH MEDICATIONS. NO ACTUAL VOMITING DURING ER STAY--ONLY DRY HEAVES ON ARRIVAL NO DIARRHEA DURING ER STAY BLOOD PRESSURE UP WITH 2 LITERS OF FLUIDS TO 130'S / 80'S. 0340--PT NOW ADMITS TO INTESTINAL BYPASS WITH WEIGHT LOSS, AFTER DIRECT QUESTIONING AGAIN ON SURGICAL HISTORY AFTER REVIEWING RESULTS OF CT SCAN ( INITIALLY HAD DENIED SHE HAD PRIOR INTESTINAL SURGERY ) PT STATES SHE "ALWAYS HAS LOW MAGNESIUM AND ELECTROLYTES" PT ALSO NOW STATES SHE IS "99.99% SURE I HAVE A UTI--I GET THEM ALL THE TIME" PT NOW ALSO STATES THAT SHE JUST FINISHED 10 DAYS OF FLAGYL FOR "BACTERIAL OVERGROWTH" STATES "I TAKE ANTIBIOTICS FOR 10 DAYS, THEN I GO OFF THEM FOR 20 DAYS" WHEN ASKED WHAT FOR-- SHE STATES "BACTERIAL OVERGROWTH". WHEN ASKED IF IT WAS ALWAYS FLAGYL, SHE STATES "NO--I TAKE ALL DIFFERENT KINDS" "SOMETIMES IT'S LEVAQUIN OR SOME OTHER KINDS" --STATES AT ONE POINT IT IS FOR "BACTERIAL OVERGROWTH IN MY INTESTINES" THEN LATER STATES "BACTERIAL OVERGROWTH IN ALL DIFFERENT PLACES" PT ALSO NOW STATES "THEY KNOW I HAVE CANCER, THEY JUST DON'T KNOW WHERE" --NOW STATES THAT DR. JOHNSON DIAGNOSED HER WITH "B-CELL LYMPHOMA" OVER A YEAR AGO, AND STATES "BUT THEY CAN'T DIAGNOSE ME OR FIND OUT WHERE IT IS BECAUSE THEY CAN'T GIVE ME IV CONTRAST BECAUSE MY KIDNEY FUNCTION IS SO BAD" STATES SHE HAS NOT RECEIVED TREATMENT OF ANY KIND FOR IT. 7315--PT STATING THAT PAIN IS STARTING TO COME BACK A LITTLE. ADDITIONAL DOSE OF LEVSIN GIVEN. 7255--STILL C/O PAIN IN ABDOMEN--FENTANYL GIVEN Diagnostic Imaging Comments ACUTE ABDOMEN XRAYS--NON-SPECIFIC BOWEL GAS PATTERN, RIGHT CENTRAL LINE IN ADEQUATE POSITION, PENDING RADIOLOGIST REVIEW CT ABDOMEN/PELVIS--NO OBSTRUCTION; FLUID IN UNDERDISTENDED SMALL BOWEL AND THROUGHOUT COLON, VERY MILD THICKENING OF PROXIMAL DESCENDING COLON, MILD EDEMATOUS OR INFLAMMATORY STRANDING IN ABDOMINAL MESENTERY, PRIOR BOWEL ANASTOMOSIS LEFT MID ABDOMEN. FINDINGS SUGGESTIVE OV NONSPECIFIC GASTROENTERITIS WITH POSSIBLE MILD FOCAL COLITIS IN LEFT PROXIMAL DESCENDING COLON. PER [facility] VIA FAX AT 0333 Reviewed: Reviewed by Me Departure Communication (Admissions) 0105--DR. GOODRICH CONTACTED FOR CENTRAL LINE PLACEMENT 0125--DR. GOODRICH HERE TO SEE PT 0200--DISCUSSED WITH DR. GOODRICH, THAT IF PT NEEDS TO BE ADMITTED, IS OK TO ADMIT HER AND I MAY NOTIFY HIM IN THE MORNING AND HE WILL SEE HER AGAIN AT THAT TIME. 0354--SPOKE WITH BUSINESS RESILIENCY MANAGER, WILL HAVE TO HOLD PT IN ER UNTIL BED IS AVAILABLE AFTER 0800 THIS AM 0400--BUSINESS RESILIENCY MANAGER REPORTS THAT A BED IS NOW AVAILABLE AND PT CAN GO TO THE FLOOR NOW. 0700--DR. GOODRICH INFORMED THAT PT WAS ADMITTED. HAVE CONSULTED HOSPITALIST FOR CO-MANAGEMENT. Impression Primary Impression: Gastroenteritis Additional Impressions: Hypomagnesemia Sepsis Dehydration Chronic renal insufficiency Urinary tract infection Poor venous access Disposition: ADMITTED INPATIENT Condition: Improved Admissions Decision to Admit Reason: Admit from ER (General) Decision to Admit/Date: Sep 09, 2018 Time/Decision to Admit Time: 03:45 Departure-Patient Inst. Referrals: NO,LOCAL PHYSICIAN (PCP/Family) Primary Care Physician RADHA BELLA DO Sep 09, 2018 00:35
--- NOTE | 2018-09-09 01:25 | NUR ---
DR. GOODRICH IN ROOM. PT SIGNED PROCEDURE CONSENT AFTER MD EXPLAINED RISKS AND BENEFITS OF CENTRAL LINE PLACEMENT.
[2018-09-09 01:59] LABS: BASOPHILS % (AUTO) 0 % (0-10); EOSINOPHILS % (AUTO) 0 % (0-10); HEMATOCRIT 45 % (35-52); HEMOGLOBIN 14.7 G/DL (11.5-16.0); LYMPHOCYTES # (AUTO) 0.9 X 10^3 (1.0-4.0); LYMPHOCYTES % (AUTO) 4 % (12-44); MEAN CORPUSCULAR HEMOGLOBIN 31 PG (25-34); MEAN CORPUSCULAR HGB CONC 32 G/DL (32-36); MEAN CORPUSCULAR VOLUME 95 FL (80-99); MEAN PLATELET VOLUME 11.9 FL (7.4-10.4); MONOCYTES # (AUTO) 1.2 X 10^3 (0.0-1.0); MONOCYTES % (AUTO) 5 % (0-12); NEUTROPHILS # (AUTO) 20.1 X 10^3 (1.8-7.8); NEUTROPHILS % (AUTO) 91 % (42-75); PLATELET COUNT 211 10^3/uL (130-400); RED CELL DISTRIBUTION WIDTH 13.3 % (10.0-14.5); WHITE BLOOD COUNT 22.1 10^3/uL (4.3-11.0)
[2018-09-09 02:12] LABS: BAND NEUTROPHILS 5 %; LYMPHOCYTES % (MANUAL) 3 %; MONOCYTES % (MANUAL) 2 %; NEUTROPHILS % (MANUAL) 90 %; RBC MORPH NORMAL
[2018-09-09 02:19] LABS: BILIRUBIN,TOTAL 0.4 MG/DL (0.1-1.0); CALCIUM 9.1 MG/DL (8.5-10.1); CREATININE SERUM 1.41 MG/DL (0.60-1.30); MAGNESIUM 1.4 MG/DL (1.8-2.4); POTASSIUM 3.8 MMOL/L (3.6-5.0); TOTAL PROTEIN 7.4 GM/DL (6.4-8.2)
[2018-09-09] MEDS: MAGNESIUM 1 GM/100 ML IVPB 100 ML IV SCH ×2 (02:58→04:00)
[2018-09-09] MEDS ORDERED: LACTATED RINGERS 1,000 ML IV ONE (03:52)
[2018-09-09] MEDS ORDERED: PANTOPRAZOLE 40 MG (PROTONIX) VIAL IV ONE (04:15)
[2018-09-09] MEDS ORDERED: HYOSCYAMINE 0.125 MG (LEVSIN) TAB ONE (05:07)
--- NOTE | 2018-09-09 05:20 | NUR ---
ASSISTED PT TO BEDSIDE COMMODE TO OBTAIN CLEAN CATCH URINE SPECIMEN.
[2018-09-09 05:26] LABS: BILIRUBIN,URINE NEGATIVE (NEGATIVE); CLARITY,URINE CLEAR; COLOR,URINE YELLOW; GLUCOSE, URINE (UA) NEGATIVE (NEGATIVE); KETONES,URINE 1+ (NEGATIVE); LEUKOCYTE ESTERASE ,URINE 3+ (NEGATIVE); NITRITE,URINE POSITIVE (NEGATIVE); PH,URINE 5 (5-9); PROTEIN,URINE 2+ (NEGATIVE); UROBILINOGEN,URINE NORMAL (NORMAL)
[2018-09-09 05:37] LABS: BACTERIA,URINE LARGE /HPF; WBC,URINE 25-50 /HPF
[2018-09-09] MEDS ORDERED: fentaNYL INJECTION 100 MCG/2 ML AMP IVP STA (05:55)
[2018-09-09] MEDS ORDERED: LEVOFLOXACIN 500 MG/100 ML IV 100 ML IV ONE (06:00)
[2018-09-09] MEDS ORDERED: ONDANSETRON 4 MG/2 ML (SDV) Z0FRAN IVP ONE ×2 (06:30)
[2018-09-09] MEDS ORDERED: ACETAMINOPHEN 500 MG TAB (TYLENOL) PO PRN (07:15)
[2018-09-09] MEDS: D5 1/2 NS W/KCL 20 MEQ/L 1,000 ML IV SCH ×4 (07:52→23:32)
[2018-09-09] MEDS: KETOROLAC 15 MG/ML VIAL IV PRN ×3 (07:57→20:41)
[2018-09-09 08:05] VITALS: BP 138/80
--- NOTE | 2018-09-09 08:05 | Diagnostic Imaging Report ---
PROCEDURE: CT abdomen and pelvis without contrast. TECHNIQUE: Multiple contiguous axial images were obtained through the abdomen and pelvis without the use of intravenous contrast. INDICATION: Nausea, emesis, diarrhea and abdominal cramping. There is a small hiatal hernia. Reactive appearing subcentimeter lymph nodes are seen in the right epicardial fat. Unenhanced images of the liver and spleen reveal no focal abnormality. Gallbladder surgically absent. There is no significant biliary ductal dilatation. No pancreatic, adrenal gland or renal abnormality seen on the noncontrasted images. There is diffuse fluid distention of small and large bowel. There is mild edema and/or inflammation within the mesentery most pronounced in the right of midline with mild edema and/or inflammation surrounding the proximal descending colon. There is no evidence of free intraperitoneal gas. No organized fluid collection is identified to indicate an abscess. There is mild pelvic free fluid. Unopacified bladder is unremarkable. Degenerative disc disease and endplate spurring is most pronounced toward the right at the L4-L5 level. IMPRESSION: Nonspecific peritoneal fluid most pronounced in the pelvis with edema and/or inflammation in the mesentery. This could be related to previous surgery. Mesenteritis is not excluded. There is also localized edema and fluid surrounding the proximal descending colon. While no focal lesion is identified, focal colitis is not excluded. Dictated by: Dictated on workstation # [id number]
--- NOTE | 2018-09-09 08:09 | NUR ---
JONNKAVON Little admitted to room 412-1, with an admitting diagnosis of gastroenterities , on 09/09/18 ER via stretcher, accompanied by family and staff .KAVON LUNSFORD introduced to surroundings, call light, bed controls, phone, TV, temperature control, lights, meal times, smoking policy, visitor policy, side rail policy, bathrooms and showers. Patient Rights given to patient in the handbook. KAVON LUNSFORD verbalizes understanding that [facility] is not responsible for the loss or damage to any personal effects or valuables that are kept in the patients posession during their hospitalization. The following Patient Care Plans and discharge . KAVON LUNSFORD verbalizes understanding of Interdisciplinary Patient Education.
--- NOTE | 2018-09-09 08:48 | Diagnostic Imaging Report ---
INDICATION: Nausea, vomiting, and diarrhea. Time of exam: 2:28 AM Image of the chest shows a right IJ line with tip overlying the SVC. Lungs are clear. No free air is identified. Postsurgical changes to the abdomen are noted. There is somewhat of a paucity of bowel gas. No abdominal calcifications are seen. IMPRESSION: No free air. There is a paucity of bowel gas which can be seen with fluid-filled bowel loops. CT may be useful for further evaluation. Dictated by: Dictated on workstation # [id number]
[2018-09-09] MEDS ORDERED: ASCO500T75 PO (09:36)
[2018-09-09] MEDS ORDERED: TIOT4MIS2 INH (09:36)
[2018-09-09] MEDS ORDERED: TRAM50TA2 PO (09:36)
[2018-09-09] MEDS ORDERED: GBPN600T PO (09:36)
[2018-09-09] MEDS ORDERED: FURO40TA4 PO (09:36)
[2018-09-09] MEDS ORDERED: FLUT1DIS26 INH (09:36)
[2018-09-09] MEDS ORDERED: CETI10TA17 PO (09:36)
[2018-09-09] MEDS ORDERED: LEVO75TA6 PO (09:36)
[2018-09-09] MEDS ORDERED: RT-ALBUINH INH ×2 (09:36)
[2018-09-09] MEDS ORDERED: TOPI100T11 PO (09:36)
[2018-09-09] MEDS ORDERED: morphine ER 30 MG (MS CONTIN) TAB PO SCH (09:45)
[2018-09-09] MEDS ORDERED: HYDROcodone/APAP 5 MG/325 MG (LORTAB) TAB PO PRN (09:45)
--- NOTE | 2018-09-09 10:03 | NUR ---
SPOKE WITH THE PATIENT ABOUT HER MEDICATIONS. SHE HAD A LIST WITH HER AND READ IT TO ME. I COMPARED IT WITH THE EXT MED HX. SHE IS PAST DUE FOR REFILLS ON SEVERAL MEDICATIONS. I VERIFIED WITH [facility] THAT THEY HAVE NOT FILLED ANYTHING MORE RECENTLY THAN 07-24-18 WHICH IS ALL SHOWING ON THE EXT MED HX. THE PATIENT STATES SHE HAD SOME ON HAND WHEN SHE REFILLED THEM LAST BUT ADMITS SHE IS HORRIBLE AT TAKING MEDICATIONS AND SHE HAS BEEN MAKING THEM STRETCH DUE TO HER DEDUCTIBLE SHE HAD STARTING IN JULY. I DID CALL [facility] AND FOUND SHE HAS FILLED A FEW OF THEM MORE RECENTLY THERE THAN WHAT IS SHOWING ON THE EXT MED HX BUT THEY ARE STILL PAST DUE. THEY ARE FOLLOWS: 06-29-18 SIMVASTATIN 40MG #25 06-29-18 LEVOTHYROXINE 75MCG DAILY #25 06-15-18 SPIRIVA RESPIMAT 2.5MG 2 PUFFS DAILY 06-15-18 GABAPENTIN 600MG TID #90 06-05-18 ADVAIR 250/50 BID HER TOPAMAX WAS FILLED 100MG #60 FOR 30 DAYS HOWEVER SHE STATES SHE HAS ONLY BEEN TAKING IT ONCE DAILY. SHE TAKES THE FOLLOWING OTC: ASPIRIN 81MG DAILY VITAMIN D 24222 DAILY VITAMIN C WITH EDWIN HIPS DAILY PATIENT ALSO STATES SHE TAKES ANTIBIOTICS ALL THE TIME. SHE STATES [facility] AND [facility]. I CAN SEE ON THE EXT MED HX WHERE THOSE HAVE BEEN FILLED. SHE STATES SHE TAKES ONE A DAY OF [place]IC[place]VER ONE SHE IS TAKING AND TAKES IT FOR 10 DAYS THEN IS OFF FOR 20 THEN STARTS A DIFFERENT ONE. I DID NOT INCLUDE THESE ON THE MED REC AT THIS TIME.
[2018-09-09] MEDS ORDERED: RT-ALBUTEROL SULF 2.5 MG/3 ML PRE-MIX VIAL INH PRN (10:30)
--- NOTE | 2018-09-09 10:32 | Consultation-Hospitalist ---
CANDELARIA ISRAEL DO 09/09/18 1032: HPI History of Present Illness: HPI/Chief Complaint Chief complaint: Abdominal cramps. HPI: This is a 63yoWF, of my [facility] with past medical history of chronic renal insufficieny and recurrent UTI, who presented to the ER with gastritis. Dr. Solis admitted her. Antibiotic of Levaquin was initiated for a UTI due to multiple allergies to medications including multiple antibiotics. At this current time, abdominal cramps are helped by supportive care. I reviewed all home meds and restarted most Source: patient, RN/MD Exam Limitations: no limitations Date Seen 09/09/18 Attending Physician Candelaria Israel DO PCP No,Local Physician Referring Physician Date of Admission Sep 09, 2018 at 04:00 Home Medications & Allergies Home Medications Reviewed patient Home Medication Reconciliation performed by pharmacy medication reconciliations certified medical technician assistant and/or nursing. Patients Allergies have been reviewed. Allergies Allergies Coded Allergies Penicillins (Verified Allergy, Unknown, RASH, 07/10/17) Sulfa (Sulfonamide Antibiotics) (Verified Allergy, Unknown, RASH, 07/10/17) adhesive tape (Verified Allergy, Unknown, HIVES, 07/10/17) cephalexin (Verified Allergy, Unknown, RASH, 07/10/17) Past Jouavvj-Vbgzxx-Smsbga Hx Past Med/Social Hx: Reviewed Nursing Past Med/Soc Hx, Reviewed and Corrections made Patient Social History Marrital Status: Employed/Student: retired Alcohol Use: Denies Use Recreational Drug Use: No Smoking Status: Former Smoker (1 PPD, QUIT 2000) Former Smoker, Quit: Jul 28, 2000 Type Used: Cigarettes Recent Foreign Travel: No Contact w/other who traveled: No Recent Hopitalizations: No Recent Infectious Disease Expo: No Immunizations Up To Date Date of Pneumonia Vaccine: May 18, 2015 Date of Influenza Vaccine: Apr 28, 2017 Seasonal Allergies Seasonal Allergies: Yes Past Medical History Surgeries: Abdominal, Adenoidectomy, Appendectomy, Breast, Gallbladder, Hysterectomy, Oophorectomy, Tonsillectomy, Tubal Ligation Currently Using CPAP: Yes Cardiac: High Cholesterol, Hypertension Neurological: Headaches /Migraines Hysterectomy, Menopausal Genitourinary: Renal Failure, UTI-Chronic Gastrointestinal: Abdominal Hernia, Gastroesophageal Reflux, Gall Bladder Disease Musculoskeletal: Arthritis Endocrine: Hypothyroidsim Cancer: Lymphoma Did You Recieve Any Treatments: No Psychosocial: Anxiety History of Blood Disorders: No Family History Hypertension Review of Systems Constitutional: see HPI, chills, fever, malaise, weakness EENTM: no symptoms reported Respiratory: no symptoms reported Cardiovascular: no symptoms reported Gastrointestinal: abdominal pain, diarrhea, nausea, vomiting Genitourinary: no symptoms reported Musculoskeletal: back pain Skin: no symptoms reported Psychiatric/Neurological: No Symptoms Reported All Other Systems Reviewed Negative Unless Noted: Yes Physical Exam Physical Exam Vital Signs Vital Signs - First Documented 09/09/18 00:00 Temp 97.6 Pulse 66 Resp 18 B/P (MAP) 162/82 (108) Pulse Ox 98 O2 Delivery Room Air Capillary Refill : Less Than 3 Seconds Height, Weight, BMI Height: 5'3.00" Weight: 230lbs. 0.6oz. 104.119054kp; 42.7 BMI Method:Stated General Appearance: No Apparent Distress, WD/WN, Chronically ill, Obese Eyes: Bilateral Eye Normal Inspection, Bilateral Eye PERRL HEENT: PERRL/EOMI, Normal ENT Inspection, Pharynx Normal Neck: Full Range of Motion, Normal Inspection, Non Tender, Supple, Carotid Bruit Respiratory: Chest Non Tender, Lungs Clear, Normal Breath Sounds, No Accessory Muscle Use, No Respiratory Distress Cardiovascular: Regular Rate, Rhythm, No Edema, No Gallop, No JVD, No Murmur, Normal Peripheral Pulses Gastrointestinal: Normal Bowel Sounds, No Organomegaly, No Pulsatile Mass, Soft , Tenderness (diffusely, mostly upper quadrants) Back: Normal Inspection, No CVA Tenderness, No Vertebral Tenderness Extremity: Normal Capillary Refill, Normal Inspection, Normal Range of Motion, Non Tender, No Calf Tenderness, No Pedal Edema Neurologic/Psychiatric: Alert, Oriented x3, No Motor/Sensory Deficits, Normal Mood/Affect Skin: Normal Color, Warm/Dry Lymphatic: No Adenopathy Results Results/Procedures Labs Laboratory Tests 09/09/18 01:49 Patient resulted labs reviewed. Assessment/Plan Assessment and Plan Assess & Plan/Chief Complaint Assessment: Sepsis UTI Leukocytosis Abdominal pain acute Monoclonal gammopathy vs. B-cell lymphoma Hypothyroidism HTN Headache chronic Plan: IVF Pain meds Supportive care IV anti-emetics Diagnosis/Problems Diagnosis/Problems (1) Sepsis Status: Acute Qualifiers: Sepsis type: sepsis due to unspecified organism Qualified Codes: A41.9 - Sepsis, unspecified organism (2) Urinary tract infection Status: Acute Qualifiers: Urinary tract infection type: acute cystitis Hematuria presence: without hematuria Qualified Codes: N30.00 - Acute cystitis without hematuria (3) Gastroenteritis Status: Acute (4) Dehydration Status: Acute (5) Hypomagnesemia Status: Acute (6) Chronic renal insufficiency Status: Chronic Qualifiers: Chronic kidney disease stage: stage 2 (mild) Qualified Codes: N18.2 - Chronic kidney disease, stage 2 (mild) (7) Poor venous access Status: Chronic TRA GONSALES MEDICAL STUDENT 09/09/18 1500: HPI History of Present Illness: HPI/Chief Complaint CC: abdominal pain, vomiting, diarrhea HPI: This is 63 yo white female who presented to ER yesterday evening after having several episodes each of vomiting and diarrhea which started yesterday around 4pm. She states she had a hamburger for breakfast and felt fine until she started having diffuse, cramping abdominal pain. She denies sick contacts or recent travel. She has a hx of many abdominal surgeries, including some form of bariatric procedure. The pt also states she has CKD and is on Levaquin for a "kidney infection". 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 It is unclear from the patient and from hospital records whether the kidney disease preceded the discovery of the monoclonal gammopathy. Dr. Solis was consulted to place a central line and is also following the patient. Source: patient, RN/MD Exam Limitations: no limitations Home Medications & Allergies Home Medications Active Scripts Medications Dose Route/Sig Max Daily Dose Days Date Category Dose Instructions Proair Hfa (Albuterol Sulfate) 1 Puff Puff 2 Puff INH Q6H PRN 09/09/18 Reported Tramadol HCl 50 Mg Tablet 50 Mg PO DAILY PRN 09/09/18 Reported Furosemide 40 Mg Tablet 40 Mg PO DAILY 09/09/18 Reported Vitamin C with Priti Hips (Ascorbic Acid) 500 Mg Tablet 500 Mg PO DAILY 09/09/18 Reported Cetirizine HCl 10 Mg Tablet 10 Mg PO DAILY 09/09/18 Reported Topiramate 100 Mg Tablet 100 Mg PO DAILY 09/09/18 Reported Advair 250-50 Diskus (Fluticasone/Salmeterol) 1 Each Blst.w.dev 1 Puff INH BID 09/09/18 Reported Spiriva Respimat 2.5MCG/ACTUATION (Tiotropium Midnight) 4 Gm Mist.inhal 2 Puff INH DAILY 09/09/18 Reported Levothyroxine Sodium 75 Mcg Tablet 75 Mcg PO DAILY 09/09/18 Reported Gabapentin 600 Mg Tablet 600 Mg PO TID 09/09/18 Reported Aspir 81 (Aspirin) 81 Mg Tablet.dr 81 Mg PO DAILY 07/10/17 Reported Vitamin D3 (Cholecalciferol (Vitamin D3)) 5,000 Unit Capsule 5,000 Unit PO DAILY 07/10/17 Reported Montelukast Sodium 10 Mg Tablet 10 Mg PO DAILY 07/10/17 Reported Simvastatin 40 Mg Tablet 40 Mg PO DAILY 07/10/17 Reported Acyclovir 400 Mg Tablet 400 Mg PO BID 07/10/17 Reported LAST FILLED #60 06-23-18 Pantoprazole Sodium 40 Mg Tablet.dr 40 Mg PO DAILY 07/10/17 Reported Past Xajgvtr-[id number]-Prszzc Hx Past Med/Social Hx: Reviewed Nursing Past Med/Soc Hx Patient Social History Recreational Drug Use: No Smoking Status: Former Smoker (1 PPD, QUIT 2000) Type Used: Cigarettes Past Medical History Surgeries: Abdominal, Appendectomy, Hysterectomy, Oophorectomy, Tonsillectomy, Tubal Ligation Currently Using CPAP: Yes Cardiac: High Cholesterol Genitourinary: Renal Failure, UTI-Chronic Gastrointestinal: Abdominal Hernia, Gastroesophageal Reflux Musculoskeletal: Arthritis Endocrine: Hypothyroidsim Cancer: Bone (monoclonal gammopathy) Psychosocial: Anxiety Family History No Pertinent Family Hx Review of Systems Constitutional: No chills, No fever EENTM: no symptoms reported Respiratory: No cough, No short of breath Cardiovascular: No chest pain Gastrointestinal: abdominal pain, diarrhea, nausea, vomiting Genitourinary: no symptoms reported Musculoskeletal: back pain Skin: no symptoms reported Psychiatric/Neurological: No Symptoms Reported Physical Exam Physical Exam General Appearance: No Apparent Distress, WD/WN, Obese Eyes: Bilateral Eye Normal Inspection, Bilateral Eye PERRL, Bilateral Eye EOMI HEENT: Normal ENT Inspection, Pharynx Normal Neck: Full Range of Motion, Non Tender Respiratory: Chest Non Tender, Lungs Clear, Normal Breath Sounds, No Respiratory Distress Cardiovascular: Regular Rate, Rhythm, No Edema, No Murmur, Normal Peripheral Pulses Gastrointestinal: Normal Bowel Sounds, No Organomegaly, Soft; No Distended, No Guarding, No Rebound; Tenderness (diffusely, mostly upper quadrants) Rectal: Deferred Back: No CVA Tenderness, No Vertebral Tenderness Extremity: Normal Range of Motion, Non Tender, No Calf Tenderness Neurologic/Psychiatric: Alert, Oriented x3, No Motor/Sensory Deficits, Normal Mood/Affect Skin: Normal Color, Warm/Dry Lymphatic: No Adenopathy Results Results/Procedures Imaging: Reviewed Imaging Films, Reviewed Imaging Report Assessment/Plan Assessment and Plan Assess & Plan/Chief Complaint Assessment: Gastroenteritis, likely viral Sepsis UTI hypomagnesemia CKD COPD Hypothryoidism Monoclonal gammopathy vs. B-cell lymphoma Plan: Supportive care including IVF, pain, nausea control Continue levaquin, consider discontinuing and switching to Rocephin, urine culture from April 2018 at [facility] showed perez-sensitive E. coli Continue home meds Consult Dr. Humphreys, hematology/oncology, to see if anything needs to be done about pt's oncology diagnosis Consider Urology consult for chronic UTI Diagnosis/Problems Diagnosis/Problems (1) Dehydration Status: Acute (2) Hypomagnesemia Status: Acute (3) Urinary tract infection Status: Acute Qualifiers: Urinary tract infection type: acute cystitis Hematuria presence: without hematuria Qualified Codes: N30.00 - Acute cystitis without hematuria (4) Sepsis Status: Acute Qualifiers: Sepsis type: sepsis due to unspecified organism Qualified Codes: A41.9 - Sepsis, unspecified organism (5) Chronic renal insufficiency Status: Chronic Qualifiers: Chronic kidney disease stage: stage 2 (mild) Qualified Codes: N18.2 - Chronic kidney disease, stage 2 (mild) (6) Poor venous access Status: Chronic (7) Gastroenteritis Status: Acute CANDELARIA ISRAEL DO Sep 09, 2018 10:32 TRA GONSALES MEDICAL STUDENT Sep 09, 2018 15:00
[2018-09-09] MEDS: toPIRamate 100 MG (TOPAMAX) TAB PO SCH (11:47)
[2018-09-09 11:51] VITALS: BP 124/60
--- NOTE | 2018-09-09 12:32 | NUR ---
unable to scan medication x2 - it notified
[2018-09-09] MEDS: GABAPENTIN 600 MG (NEURONTIN) TAB PO SCH ×2 (13:20→20:40)
[2018-09-09] MEDS ORDERED: ACETAMINOPHEN 325 MG SUPP (TYLENOL) ONE (15:08)
[2018-09-09 15:51] VITALS: BP 115/51
[2018-09-09] MEDS: ONDANSETRON 4 MG/2 ML (SDV) Z0FRAN IV PRN ×2 (17:59→23:07)
[2018-09-09] MEDS: HYOSCYAMINE 0.125 MG (LEVSIN) TAB SL PRN ×2 (18:00→23:07)
[2018-09-09] MEDS ORDERED: RT-ADVAIR HFA 115/21 MCG PER PUFF IH SCH (20:00)
--- NOTE | 2018-09-09 20:39 | History & Physical-Surgical ---
History of Present Illness History of Present Illness Reason for visit/HPI chief complaint: abdominal pain nausea vomiting and diarrhea Patient seen in emergency department Patient is [id number] female who yesterday evening around 4 p.m. icteric having diffuse abdominal pain. Patient states cramping type pain. She also was begin having nausea vomiting and began having multiple episodes of diarrhea. Patient states the pain comes and goes and varies in intensity. Nothing seems to make it worse and nothing really seems to make it better. Patient came to emergency department for further evaluation. Patient unable to get IV access as well this time, therefore I was called to place a central line. Patient with no other sick contacts. Patient denies any fever sweats chills shortness of breath or chest pain. Date of Admission Sep 09, 2018 at 04:00 Date Seen by a Provider: Sep 09, 2018 Time Seen by a Provider: 01:35 I consulted on this patient on 09/09/18 20:32 Attending Physician Candelaria Vaughn DO Admitting Physician No,Local Physician Consult Allergies and Home Medications Allergies Coded Allergies: Penicillins (Verified Allergy, Unknown, RASH, 07/10/17) Sulfa (Sulfonamide Antibiotics) (Verified Allergy, Unknown, RASH, 07/10/17 ) adhesive tape (Verified Allergy, Unknown, HIVES, 07/10/17) cephalexin (Verified Allergy, Unknown, RASH, 07/10/17) Home Medications Acyclovir 400 Mg Tablet, 400 MG PO BID, (Reported) LAST FILLED #60 06-23-18 Albuterol Sulfate 1 Puff Puff, 2 PUFF INH Q6H PRN for SHORTNESS OF BREATH, ( Reported) Ascorbic Acid 500 Mg Tablet, 500 MG PO DAILY, (Reported) Aspirin 81 Mg Tablet.dr, 81 MG PO DAILY, (Reported) Cetirizine HCl 10 Mg Tablet, 10 MG PO DAILY, (Reported) Cholecalciferol (Vitamin D3) 5,000 Unit Capsule, 5,000 UNIT PO DAILY, (Reported) Fluticasone/Salmeterol 1 Each Blst.w.dev, 1 PUFF INH BID, (Reported) Furosemide 40 Mg Tablet, 40 MG PO DAILY, (Reported) Gabapentin 600 Mg Tablet, 600 MG PO TID, (Reported) Levothyroxine Sodium 75 Mcg Tablet, 75 MCG PO DAILY, (Reported) Montelukast Sodium 10 Mg Tablet, 10 MG PO DAILY, (Reported) Pantoprazole Sodium 40 Mg Tablet.dr, 40 MG PO DAILY, (Reported) Simvastatin 40 Mg Tablet, 40 MG PO DAILY, (Reported) Tiotropium [place] 4 Gm Mist.inhal, 2 PUFF INH DAILY, (Reported) Topiramate 100 Mg Tablet, 100 MG PO DAILY, (Reported) Tramadol HCl 50 Mg Tablet, 50 MG PO DAILY PRN for PAIN-MODERATE, (Reported) Patient Home Medication List Home Medication List Reviewed: Yes Past Icarwbx-Ehbivm-Ihqzgq Hx Patient Social History Alcohol Use: Denies Use Recreational Drug Use: No Smoking Status: Former Smoker (1 PPD, QUIT 2000) Former Smoker, Quit: Jul 28, 2000 Type Used: Cigarettes Recent Foreign Travel: No Contact w/Someone Who Travel: No Recent Infectious Disease Expo: No Recent Hopitalizations: No Physical Abuse Screen: No Sexual Abuse: No Immunizations Up To Date Date of Pneumonia Vaccine: May 18, 2015 Date of Influenza Vaccine: Apr 27, 2019 Seasonal Allergies Seasonal Allergies: Yes Surgeries History of Surgeries: Yes (HERNIA REPAIR X 2; HYST/BSO; EGD 06/2017; BREAST IMPLANTS; INTESTINAL BYPASS 1978--ILEO-JEJUNAL BYPASS FOR BARIATRIC SURGERY; ) Surgeries: Abdominal, Appendectomy, Hysterectomy, Oophorectomy, Tonsillectomy, Tubal Ligation Respiratory History of Respiratory Disorde: Yes Respiratory Disorders: COPD Cardiovascular History of Cardiac Disorders: Yes Cardiac Disorders: High Cholesterol, Hypertension Neurological History of Neurological Disord: No Neurological Disorders: Headaches /Migraines Reproductive System EXPORT AGENT History: Hysterectomy, Menopausal Genitourinary History of Genitourinary Disor: Yes Genitourinary Disorders: Renal Failure, UTI-Chronic Gastrointestinal History of Gastrointestinal Di: Yes (S/P MARCE, APPY; GASTRITIS) Gastrointestinal Disorders: Abdominal Hernia, Gastroesophageal Reflux Musculoskeletal History of Musculoskeletal Dis: Yes Musculoskeletal Disorders: Arthritis Endocrine History of Endocrine Disorders: Yes (OBESITY) Endocrine Disorders: Hypothyroidsim Cancer History of Cancer: Yes (PT REPORTS SHE HAS BEEN DX WITH "B-CELL LYMPHOMA" OVER A YEAR AGO, BUT NO TREATMENT, PER PT ON 09/09/18--STATES SHE HAS SEEN DR. JOHNSON-- B CELL LYMPHOMA BY BONE MARROW BIOPSY 09/2017) Cancer: Bone (monoclonal gammopathy) Psychosocial History of Psychiatric Problem: Yes Behavioral Health Disorders: Anxiety Integumentary History of Skin or Integumenta: No Blood Transfusions History of Blood Disorders: No Family Medical History Significant Family History: Hypertension Family Medial History: Alzheimer's disease 19 FATHER Cardiovascular disease 19 FATHER Kidney disease 19 MOTHER G8 BROTHER G8 BROTHER Review of Systems Constitutional: no symptoms reported EENTM: no symptoms reported Respiratory: no symptoms reported Cardiovascular: no symptoms reported Gastrointestinal: see HPI Genitourinary: no symptoms reported Musculoskeletal: back pain Skin: no symptoms reported Psychiatric/Neurological: No Symptoms Reported Physical Exam Vital Signs Vital Signs - First Documented 09/09/18 00:00 Temp 97.6 Pulse 66 Resp 18 B/P (MAP) 162/82 (108) Pulse Ox 98 O2 Delivery Room Air Capillary Refill : Less Than 3 Seconds Height, Weight, BMI Height: 5'3.00" Weight: 235lbs. 0.0oz. 106.660169yr; 41.6 BMI Method:Stated General Appearance: Mild Distress HEENT: PERRL/EOMI, Normal ENT Inspection Neck: Non Tender, Supple Respiratory: Chest Non Tender, No Accessory Muscle Use, No Respiratory Distress Cardiovascular: Tachycardia Gastrointestinal: No Guarding, No Rebound; Tenderness (diffusely) Rectal: Deferred Extremity: Normal Inspection Neurologic/Psychiatric: Alert, Oriented x3, No Motor/Sensory Deficits, Normal Mood/Affect, artificial flowers starcher II-XII Norm as Tested Skin: Normal Color, Warm/Dry Lymphatic: No Adenopathy Data Review Labs Laboratory Tests 09/09/18 01:49: White Blood Count 22.1H, Red Blood Count 4.79, Hemoglobin 14.7, Hematocrit 45, Mean Corpuscular Volume 95, Mean Corpuscular Hemoglobin 31, Mean Corpuscular Hemoglobin Concent 32, Red Cell Distribution Width 13.3, Platelet Count 211, Mean Platelet Volume 11.9H, Neutrophils (%) (Auto) 91H, Lymphocytes (%) (Auto) 4L, Monocytes (%) (Auto) 5, Eosinophils (%) (Auto) 0, Basophils (%) (Auto) 0, Neutrophils # (Auto) 20.1H, Lymphocytes # (Auto) 0.9L, Monocytes # (Auto) 1.2H, Eosinophils # (Auto) 0.0, Basophils # (Auto) 0.0, Neutrophils % (Manual) 90, Lymphocytes % (Manual) 3, Monocytes % (Manual) 2, Band Neutrophils 5, Blood Morphology Comment NORMAL, Sodium Level 141, Potassium Level 3.8, Chloride Level 108H, Carbon Dioxide Level 19L, Anion Gap 14, Blood Urea Nitrogen 27H, Creatinine 1.41H, Estimat Glomerular Filtration Rate 38, BUN/Creatinine Ratio 19 , Glucose Level 187H, Lactic Acid Level 2.25*H, Calcium Level 9.1, Corrected Calcium 9.1, Magnesium Level 1.4L, Total Bilirubin 0.4, Aspartate Amino Transf ( AST/SGOT) 25, Alanine Aminotransferase (ALT/SGPT) 32, Alkaline Phosphatase 94, Total Protein 7.4, Albumin 4.0, Amylase Level 63, Lipase 38 09/09/18 04:00: Lactic Acid Level 2.89*H 09/09/18 05:20: Urine Color YELLOW, Urine Clarity CLEAR, Urine pH 5, Urine Specific Wallace 1.020, Urine Protein 2+H, Urine Glucose (UA) NEGATIVE, Urine Ketones 1+H, Urine Nitrite POSITIVEH, Urine Bilirubin NEGATIVE, Urine Urobilinogen NORMAL, Urine Leukocyte Esterase 3+H, Urine RBC (Auto) NEGATIVE, Urine RBC NONE, Urine WBC 25- 50H, Urine Squamous Epithelial Cells 10-25H, Urine Crystals NONE, Urine Bacteria LARGEH, Urine Casts NONE, Urine Mucus LARGEH, Urine Culture Indicated YES 09/09/18 11:50: Glucometer 133H Microbiology 09/09/18 Blood Culture - Preliminary, Resulted No growth Assessment/Plan Assessment/Plan Admission Diagonsis gastroenteritis, UTI, sepsis, diarrhea, nausea vomiting Admission Status: Observation Assessment/Plan gastroenteritis, UTI, sepsis, diarrhea, nausea vomiting Patient has central line placed for IV access. Patient CT scan to be obtained Patient on IV hydration and Levaquin, bowel rest conservative measurements at this time no surgical intervention on Levaquin Dr. Vaughn on consult Clinical Quality Measures DVT/VTE Risk/Contraindication: Risk Factor Score Per Nursin RFS Level Per Nursing on Admit: 3=ZULLY Smith DO Sep 09, 2018 20:39
[2018-09-09] MEDS: MONTELUKAST 10 MG (SINGULAIR) TAB PO SCH (20:40)
[2018-09-09] MEDS: ACYCLOVIR 400 MG TABLET (ZOVIRAX) PO SCH (20:40)
[2018-09-10] VITALS (7 sets, daily range): BP systolic 85–128; BP diastolic 53–75
[2018-09-10] MEDS: HYOSCYAMINE 0.125 MG (LEVSIN) TAB SL PRN ×2 (03:19→14:36)
[2018-09-10] MEDS: KETOROLAC 15 MG/ML VIAL IV PRN ×4 (03:20→21:17)
[2018-09-10] MEDS: D5 1/2 NS W/KCL 20 MEQ/L 1,000 ML IV SCH ×3 (03:22→22:18)
[2018-09-10] MEDS: ONDANSETRON 4 MG/2 ML (SDV) Z0FRAN IV PRN ×4 (03:22→21:19)
--- NOTE | 2018-09-10 03:22 | NUR ---
This RN enters to room to answer the call light. Patient begins yelling at this RN stating that she has been asking for her medications for an hour now. This RN tells patient that the medications that she could have were just now due and I apologize because the message was not relayed. PCT's state that the patient called earlier to use the bathroom but did not ask for any medications. Patient yells at this RN stating "you better get the problem figured out and fixed". This RN gives all medications that are due. This RN also attempts to show the eMAR to the patient showing when the last time I gave her the medications but she refused to acknowledge it stating she knows when she can have her medications. This RN exits the room.
--- NOTE | 2018-09-10 03:39 | OPERATIVE REPORT ---
DATE OF SERVICE: 09/09/2018 PREPROCEDURE DIAGNOSIS: Need venous access. POSTPROCEDURE DIAGNOSIS: Need venous access. PROCEDURE: Right internal jugular ultrasound-guided central line placement. SURGEON: Zully Solis DO ANESTHESIA: Local. ESTIMATED BLOOD LOSS: Minimal. COMPLICATIONS: None. INDICATIONS: The patient is a 63-year-old female in the Emergency Department who has not been able to establish any IV access. I have been asked to place a central line. The patient understands risks and benefits of procedure and wished to proceed with procedure. Consent was signed in the chart. PROCEDURE: The patient was prepped and draped in sterile fashion. Timeout was performed. Using ultrasound, the right internal jugular vein was localized. A local anesthetic was used to infiltrate into the area. Once anesthetic effect took place the right internal jugular vein under ultrasound guidance was accessed, dark nonpulsatile blood was withdrawn. A guidewire was inserted through the needle and the needle was removed. A #11 blade scalpel was used to make a stab incision at the insertion point. A dilator was then advanced over the wire and removed. The triple lumen catheter was advanced over the guidewire. The wire was removed. The triple lumen catheter was then secured. All ports were accessed and flushed without difficulty. The area was then washed and dried and sterile bandage was applied. The patient tolerated the procedure well without any complications. Chest x-ray pending. Job ID: [id number] DocumentID: [id number] Dictated Date: 09/09/2018 17:04:56 Gi Asst Date: 09/10/2018 03:39:36 Dictated By: ZULLY SOLIS DO
--- NOTE | 2018-09-10 05:05 | NUR ---
This RN entered the room to give AM medications and draw labs. Upon walking in the room, patient was found in bed and stated that she needed to use the bathroom. This RN assisted patient to the bathroom. Patient's is at bedside and states "do I need to stay here all night to make sure that my is being taken care of". This RN responds that he is more than welcome to stay the night anytime he chooses. Patient's states that the patient hasn't received her pain medications. This RN educates patients about how the eMAR works and offered to show him when the medications were scanned to show that medications were given on time. Patient's states that this RN got into the eMAR to change the time to whatever I wanted to show that her medications were given on time when they were not. This RN explained that medications are scanned and there is not a way to change the time and that even if there was, it would show that someone edited the time in the computer. 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 also states that he will be filing a complaint against this RN for lack of medications being given. Floor managers name is given. This RN offers to get another nurse to take care of them for the rest of the shift and they declined. paint line production supervisor is notified of situation.
[2018-09-10] MEDS: LEVOFLOXACIN 250 MG/D5W 50 ML (PRE-MIX) IV SCH (05:39)
--- NOTE | 2018-09-10 05:39 | NUR ---
This RN enters the room to give medications. Patient's asks what antibiotic was being given. is told that she is getting Levaquin and that she is scheduled to receive it every 24 hours. states "it has been more than 24 hours so whats the point?". This RN gives the time of the last Levaquin dose received in ER and states that it is the wrong time. states that the times things are given and the times that are in the computer is wrong. He also states that we put in our own times to reflect the time we want it to say. line construction supervisor is outside the room during conversation. Addendum: 09/10/18 at 0645 by USMAN VAZQUEZ RN Amended to add that this RN offered to write medications and the time they were given on the white board. and patient both declined. Patient states "I know what time they were given last" and indicates that she is keeping track on her phone.
[2018-09-10 05:50] LABS: BASOPHILS % (AUTO) 0 % (0-10); EOSINOPHILS % (AUTO) 0 % (0-10); HEMATOCRIT 42 % (35-52); HEMOGLOBIN 13.4 G/DL (11.5-16.0); LYMPHOCYTES # (AUTO) 1.7 X 10^3 (1.0-4.0); LYMPHOCYTES % (AUTO) 12 % (12-44); MEAN CORPUSCULAR HEMOGLOBIN 30 PG (25-34); MEAN CORPUSCULAR HGB CONC 32 G/DL (32-36); MEAN CORPUSCULAR VOLUME 96 FL (80-99); MEAN PLATELET VOLUME 11.7 FL (7.4-10.4); MONOCYTES # (AUTO) 1.4 X 10^3 (0.0-1.0); MONOCYTES % (AUTO) 10 % (0-12); NEUTROPHILS # (AUTO) 11.5 X 10^3 (1.8-7.8); NEUTROPHILS % (AUTO) 78 % (42-75); PLATELET COUNT 168 10^3/uL (130-400); RED CELL DISTRIBUTION WIDTH 13.7 % (10.0-14.5); WHITE BLOOD COUNT 14.7 10^3/uL (4.3-11.0)
[2018-09-10] MEDS ORDERED: PANTOPRAZOLE 40 MG (PROTONIX) VIAL IV SCH ×2 (06:00→09:00)
[2018-09-10 06:11] LABS: ALBUMIN 2.9 GM/DL (3.2-4.5); BILIRUBIN,TOTAL 0.5 MG/DL (0.1-1.0); CALCIUM 7.8 MG/DL (8.5-10.1); CREATININE SERUM 1.62 MG/DL (0.60-1.30); MAGNESIUM 1.6 MG/DL (1.8-2.4); POTASSIUM 4.4 MMOL/L (3.6-5.0); TOTAL PROTEIN 5.7 GM/DL (6.4-8.2)
[2018-09-10] MEDS: ACYCLOVIR 400 MG TABLET (ZOVIRAX) PO SCH ×2 (09:00→21:10)
[2018-09-10] MEDS ORDERED: PANTOPRAZOLE 40 MG (PROTONIX) TAB PO SCH (09:00)
[2018-09-10] MEDS: ASPIRIN 81 MG CHEW (CHILDREN'S ASA) PO SCH (09:00)
[2018-09-10] MEDS: LORATADINE (CLARITIN) 10 MG TAB PO SCH (09:00)
[2018-09-10] MEDS: LEVOTHYROXINE 75 MCG (LEVOTHROID) TABLET PO SCH (09:00)
[2018-09-10] MEDS: toPIRamate 100 MG (TOPAMAX) TAB PO SCH (09:00)
[2018-09-10] MEDS: GABAPENTIN 600 MG (NEURONTIN) TAB PO SCH ×4 (09:00→21:10)
--- NOTE | 2018-09-10 09:14 | Progress Note-Hospitalist ---
Subjective HPI/CC On Admission Date Seen by Provider: Sep 10, 2018 Time Seen by Provider: 09:45 Chief complaint: Abdominal cramps. HPI: This is a 63yoWF, of my clinic [facility] with past medical history of chronic renal insufficieny and recurrent UTI, who presented to the ER with gastritis. Dr. Solis admitted her. Antibiotic of Levaquin was initiated for a UTI due to multiple allergies to medications including multiple antibiotics. At this current time, abdominal cramps are helped by supportive care. I reviewed all home meds and restarted most Subjective/Events-last exam Patient has multiple complaints about not getting enough pain medicine at the instant she requests it and numerous other issues so will have nursing treating and pumping supervisor come in and address these issues Leukocytosis is improved at 14k Creat increased to 1.6 but baseline is CRI and sees Nephrology UCx pending on Levaquin due to allergies to meds Needs PT/OT to get OOB Pain is still present Review of Systems General: Fatigue Gastrointestinal: Abdominal Pain Neurological: Weakness Focused Exam Lactate Level 09/09/18 01:49: Lactic Acid Level 2.25*H 09/09/18 04:00: Lactic Acid Level 2.89*H 09/10/18 11:04: Lactic Acid Level 1.01 Lactic Acid Level Laboratory Tests Test 09/10/18 11:04 Lactic Acid Level 1.01 MMOL/L (0.50-2.00) Objective Exam Vital Signs Vital Signs Date Time Temp Pulse Resp B/P (MAP) Pulse Ox O2 Delivery O2 Flow Rate FiO2 09/10/18 11:53 99.4 89 18 116/54 (74) 93 Room Air Capillary Refill : Less Than 3 Seconds General Appearance: Chronically ill, Mild Distress, Obese HEENT: PERRL/EOMI, Normal ENT Inspection Neck: Non Tender, Supple Respiratory: Chest Non Tender, No Accessory Muscle Use, No Respiratory Distress Cardiovascular: Tachycardia Gastrointestinal: No Guarding, No Rebound; Tenderness (diffusely) Rectal: Deferred Back: Normal Inspection, No CVA Tenderness, No Vertebral Tenderness Extremity: Normal Inspection Neurologic/Psychiatric: Alert, Oriented x3, No Motor/Sensory Deficits, Normal Mood/Affect, compliance aide II-XII Norm as Tested Skin: Normal Color, Warm/Dry Lymphatic: No Adenopathy Results/Procedures Lab Laboratory Tests 09/10/18 05:05 Patient resulted labs reviewed. Imaging: Reviewed Imaging Films, Reviewed Imaging Report Assessment/Plan Assessment and Plan Assess & Plan/Chief Complaint Assessment: Sepsis UTI Leukocytosis improved Abdominal pain acute Monoclonal gammopathy vs. B-cell lymphoma Hypothyroidism HTN Headache chronic Plan: IVF but decrease it due to high risk for overload Pain meds Supportive care IV anti-emetics Nursing treating and pumping supervisor to talk about her complaints Diagnosis/Problems Diagnosis/Problems (1) Sepsis Status: Acute Qualifiers: Sepsis type: sepsis due to unspecified organism Qualified Codes: A41.9 - Sepsis, unspecified organism (2) Urinary tract infection Status: Acute Qualifiers: Urinary tract infection type: acute cystitis Hematuria presence: without hematuria Qualified Codes: N30.00 - Acute cystitis without hematuria (3) Gastroenteritis Status: Acute (4) Dehydration Status: Acute (5) Hypomagnesemia Status: Acute (6) Chronic renal insufficiency Status: Chronic Qualifiers: Chronic kidney disease stage: stage 2 (mild) Qualified Codes: N18.2 - Chronic kidney disease, stage 2 (mild) (7) Poor venous access Status: Chronic Clinical Quality Measures DVT/VTE Risk/Contraindication: Risk Factor Score Per Nursin RFS Level Per Nursing on Admit: 3=High BROOKE ISRAEL DO Sep 10, 2018 09:14
--- NOTE | 2018-09-10 09:14 | Progress Note-Hospitalist ---
Subjective HPI/CC On Admission Date Seen by Provider: Sep 10, 2018 Time Seen by Provider: 09:45 Chief complaint: Abdominal cramps. HPI: This is a 63yoWF, of my clinic [facility] with past medical history of chronic renal insufficieny and recurrent UTI, who presented to the ER with gastritis. Dr. Solis admitted her. Antibiotic of Levaquin was initiated for a UTI due to multiple allergies to medications including multiple antibiotics. At this current time, abdominal cramps are helped by supportive care. I reviewed all home meds and restarted most Focused Exam Lactate Level 09/09/18 01:49: Lactic Acid Level 2.25*H 09/09/18 04:00: Lactic Acid Level 2.89*H Objective Exam Vital Signs Vital Signs Date Time Temp Pulse Resp B/P (MAP) Pulse Ox O2 Delivery O2 Flow Rate FiO2 09/10/18 08:13 100.4 72 18 124/75 (91) 93 Room Air Capillary Refill : Less Than 3 Seconds General Appearance: Mild Distress HEENT: PERRL/EOMI, Normal ENT Inspection Neck: Non Tender, Supple Respiratory: Chest Non Tender, No Accessory Muscle Use, No Respiratory Distress Cardiovascular: Tachycardia Gastrointestinal: No Guarding, No Rebound; Tenderness (diffusely) Rectal: Deferred Back: Normal Inspection, No CVA Tenderness, No Vertebral Tenderness Extremity: Normal Inspection Neurologic/Psychiatric: Alert, Oriented x3, No Motor/Sensory Deficits, Normal Mood/Affect, supervisor metalizing II-XII Norm as Tested Skin: Normal Color, Warm/Dry Lymphatic: No Adenopathy Results/Procedures Lab Laboratory Tests 09/10/18 05:05 Patient resulted labs reviewed. Imaging: Reviewed Imaging Films, Reviewed Imaging Report Assessment/Plan Assessment and Plan Assess & Plan/Chief Complaint Assessment: Sepsis UTI Leukocytosis Abdominal pain acute Monoclonal gammopathy vs. B-cell lymphoma Hypothyroidism HTN Headache chronic Plan: IVF Pain meds Supportive care IV anti-emetics Diagnosis/Problems Diagnosis/Problems (1) Sepsis Status: Acute Qualifiers: Sepsis type: sepsis due to unspecified organism Qualified Codes: A41.9 - Sepsis, unspecified organism (2) Urinary tract infection Status: Acute Qualifiers: Urinary tract infection type: acute cystitis Hematuria presence: without hematuria Qualified Codes: N30.00 - Acute cystitis without hematuria (3) Gastroenteritis Status: Acute (4) Dehydration Status: Acute (5) Hypomagnesemia Status: Acute (6) Chronic renal insufficiency Status: Chronic Qualifiers: Chronic kidney disease stage: stage 2 (mild) Qualified Codes: N18.2 - Chronic kidney disease, stage 2 (mild) (7) Poor venous access Status: Chronic Clinical Quality Measures DVT/VTE Risk/Contraindication: Risk Factor Score Per Nursin RFS Level Per Nursing on Admit: 3=High BROOKE ISRAEL DO Sep 10, 2018 09:14
[2018-09-10] MEDS ORDERED: ADVAIR HFA 115/21 MCG INHALER 8 GM IH SCH (09:17)
--- NOTE | 2018-09-10 10:42 | NUR ---
NOTE THAT PT C/O N/V AND VOICED SHE WOULD VOMIT IF SHE HAD TO TAKE PO MEDS -- ADVISED DR ISRAEL THAT PT REFUSED PO MEDS SHE VOICED THAT WAS OK
[2018-09-10] MEDS: UMECLIDINIUM BROMIDE (INCRUSE ELLIPTA) 7'S IH SCH (12:29)
--- NOTE | 2018-09-10 13:38 | Physical Therapy Evaluation ---
PT Evaluation-General Medical Diagnosis Admission Date Sep 09, 2018 at 04:00 Medical Diagnosis: Gastroenteritis Onset Date: Sep 09, 2018 Therapy Diagnosis Therapy Diagnosis: decreased mobility Height/Weight Height (Feet): 5 Height (Inches): 3.00 Weight (Pounds): 235 Weight (Ounces): 0.0 Precautions Precautions/Isolations: Contact Isolation Weight Bear Status Right Lower Extremity: Right Full Weight Bearing Left Lower Extremity: Left Full Weight Bearing Referral Physician: Dr. Vaughn Reason for Referral: Evaluation/Treatment Medical History Pertinent Medical History: Arthritis, COPD, GERD, HTN, Hypothroidism Additional Medical History Obesity, B-Cell lymphoma, Renal Failure Current History Pt to ED c/o vomiting and diarrhea Reviewed History: Yes Social History Home: Single Level Current Living Status: Spouse Entry Into Home: Stairs With Railing PT Steps Into Home: 2 Prior/Core FIM Prior Level of Function Therapy Code Descriptions/Definitions Functional [place] Measure: 0=Not Assessed/NA 4=Minimal Assistance 1=Total Assistance 5=Supervision or Setup 2=Maximal Assistance 6=Modified [place] 3=Moderate Assistance 7=Complete [place] Therapy Quality Codes: 6 Independent with activity with or without an assistive device 5 Patient requires set up or clean up by helper. Patient completes activity by themselves 4 Supervision or touching assist (CGA). [place] provide cues , steadying assist 3 The helper provides less than half the effort to complete the activity 2 The helper provides more than half the effort to complete the activity 1 Dependent. The helper does all the effort to complete an activity 7 Patient refused to complete or attempt activity 9 The patient did not perform the activity before the current illness or injury 88 Not attempted due to Medical conditions or safety concerns Functional Abilities and Goals: Independent: Patient completed the activities by him/herself, with or without an assistive device, with no assistance from a helper. Needed Some Help: Patient needed partial assistance from another person to complete activities. Dependent: A helper completed the activities for the patient. Unknown: Not Applicable: Bed Mobility: 6 Transfers (B,C,W/C) (FIM): 6 Gait: 6 Stairs: 6 Indoor Mobility (Ambulation): Independent Stairs: Independent Prior Devices Use: Walker Prior Device Use: FWW PT Evaluation-Current Subjective Pt in bed and just finished with RT. Pt agrees to PT. Pain Numeric Pain Scale: 10-Worst Possible Pain Location Body Site: Abdomen Pt/Family Goals Pt to return home. Objective Patient Orientation: Person, Place, Situation, Normal For Age Attachments: IV ROM/Strength ROM Lower Extremities NT Strength Lower Extremities NT due to pain. Integumentary/Posture Bowel Incontinence: No Bladder Incontinence: No Neuromuscular (Tone, Coordination, Reflexes) NT Sensory Vision: Functional Hearing: Functional Sensation Lower Extremities NT Transfers Therapy Code Descriptions/Definitions Functional [place] Measure: 0=Not Assessed/NA 4=Minimal Assistance 1=Total Assistance 5=Supervision or Setup 2=Maximal Assistance 6=Modified [place] 3=Moderate Assistance 7=Complete [place] Transfers (B, C, W/C) (FIM): 3 Rollin Supine to/from Sit: 3 Sit to/from Stand: 5 Gait Mode of Locomotion: Walk Anticipated Mode of Locomotion: Walk Gait (FIM): 6 Distance (FIM): 3=150 ft Distance: 400' Gait Level of Assist: 6 Gait Persons Needed: 1 Gait Assistive Device: FWW Balance Sitting Static: Good Sitting Dynamic: Good Standing Static: Good Standing Dynamic: Good Assessment/Needs Pt required mod A with bed mobility due to pain. PT instructed pt in log roll to avoid pressure on abdomen and pt would not comply. Pt used PT to get to EOB. Pt is SBA with sit<>stand transfer to FWW. Pt was able to perform amb and transfer with SBA from toilet. Pt required assist with bathroom skills. Pt amb with FWW 400' and PT assisting with IV pole. Pt returned to room and is in bed with all needs met. Rehab Potential: Good Post Rehab Potential-Barriers: co-morbidities PT Short Term Goals Short Term Goals Time Frame: Sep 17, 2018 Transfers (B,C,W/C) (FIM): 5 Gait (FIM): 6 Distance (FIM): 3=150 ft Gait Distance Comment: 500' Gait Level of Assist: 6 Gait Assistive Device: FWW PT Plan Problem List Problem List: Activity Tolerance, Functional Strength, Safety, Gait, Transfer, Bed Mobility Treatment/Plan Treatment Plan: Continue Plan of Care Treatment Plan: Bed Mobility, Education, Functional Activity Yasmin, Functional Strength, Gait, Safety, Therapeutic Exercise, Transfers Treatment Duration: Sep 17, 2018 Frequency: 6 times per week Estimated Hrs Per Day: .25 hour per day Patient and/or Family Agrees t: Yes Safety Risks/Education Patient Education: Gait Training, Transfer Techniques, Correct Positioning, Safety Issues Time/GCodes Time In: 1230 Time Out: 1255 Total Billed Treatment Time: 25 Total Billed Treatment 1 visit EVL 10 min FA 15 min DILCIA LUTZ PT Sep 10, 2018 13:38
--- NOTE | 2018-09-10 14:59 | NUR ---
Pt is Sikhism. Yardage Control Operator provided prayer and Communion.
--- NOTE | 2018-09-10 16:28 | Occupational Therapy Eval ---
OT Evaluation-General/PLF Medical Diagnosis Admission Date Sep 09, 2018 at 04:00 Medical Diagnosis: Gastroenteritis Onset Date: Sep 09, 2018 Therapy Diagnosis Therapy Diagnosis: weakness Height/Weight Height (Feet): 5 Height (Inches): 3.00 Weight (Pounds): 235 Weight (Ounces): 0.0 Precautions Precautions/Isolations: Fall Prevention, Standard Precautions Safety Interventions: None Weight Bear Status Weight Bearing Restriction: Full Weight Bearing Location Restriction: L LE, R LE Referral Physician: Dr. Vaughn Referral Reason: Activity Tolerance, Self Care, Evaluation/Treatment, Strengthening/ROM Medical History Pertinent Medical History: Arthritis, COPD, GERD, HTN, Hypothroidism Current History Pt admitted to ER due to severe abdominal pain , Vomitting & Diarrhea. Pain in abdomen 04/06 Reviewed History: Yes Social History Home: Single Level Current Living Status: Spouse Entry Into Home: Stairs With Railing Steps Into Home: 2 ADL-Prior Level of Function Therapy Code Descriptions/Definitions Functional [place] Measure: 0=Not Assessed/NA 4=Minimal Assistance 1=Total Assistance 5=Supervision or Setup 2=Maximal Assistance 6=Modified [place] 3=Moderate Assistance 7=Complete [place] Therapy Quality Codes: 6 Independent with activity with or without an assistive device 5 Patient requires set up or clean up by helper. Patient completes activity by themselves 4 Supervision or touching assist (CGA). [place] provide cues , steadying assist 3 The helper provides less than half the effort to complete the activity 2 The helper provides more than half the effort to complete the activity 1 Dependent. The helper does all the effort to complete an activity 7 Patient refused to complete or attempt activity 9 The patient did not perform the activity before the current illness or injury 88 Not attempted due to Medical conditions or safety concerns Functional Abilities and Goals: Independent: Patient completed the activities by him/herself, with or without an assistive device, with no assistance from a helper. Needed Some Help: Patient needed partial assistance from another person to complete activities. Dependent: A helper completed the activities for the patient. Unknown: Not Applicable: ADL PLOF Comments 63 YRS OLD W/F lives at home with her & was Independent inn all ADLs, ambulation & driving. Self Care: Independent Functional Cognition: Independent DME/Equipment: Grab Bars, Shower Hose Area [address] Self: Yes OT Current Status Subjective Pt in bed , very uncomfortable due to severe abdominal pain, Agree for OT Eval & treatment. Pain Numeric Pain Scale: 9 Location Body Site: Abdomen Pain Description: Ache, Sharp Mental Status/Objective Patient Orientation: Person, Place, Time, Situation Attachments: Central Line, Oxygen, Saline Lock, SCD's Current Glasses/Contacts: No Hearing Aids: No Dentures/Partials: No Hand Dominance: Right Upper Extremity ROM WFL Upper Extremity Coordination INTACT Upper Extremity Sensation INTACT Upper Extremity Strength MS in BUE -4/5 grossly graded. ADL-Treatment ADL-Current Pt needs mod-max A in supine to sit in bed, Mod A sit to stand . Pt morbid obese . MS in BUE -4/5 grossly graded. c/o severe pain in Abdomen .Pt fatigue soon. Poor endurance Therapy Code Descriptions/Definitions Functional [place] Measure: 0=Not Assessed/NA 4=Minimal Assistance 1=Total Assistance 5=Supervision or Setup 2=Maximal Assistance 6=Modified [place] 3=Moderate Assistance 7=Complete [place] Therapy Quality Codes: 6 Independent with activity with or without an assistive device 5 Patient requires set up or clean up by helper. Patient completes activity by themselves 4 Supervision or touching assist (CGA). [place] provide cues , steadying assist 3 The helper provides less than half the effort to complete the activity 2 The helper provides more than half the effort to complete the activity 1 Dependent. The helper does all the effort to complete an activity 7 Patient refused to complete or attempt activity 9 The patient did not perform the activity before the current illness or injury 88 Not attempted due to Medical conditions or safety concerns Upper Body Dressing (FIM): 4 Lower Body Dressing (FIM): 2 Toileting (FIM): 4 Transfers (B, C, W/C) (FIM): 4 Toilet/Commode Transfer (FIM): 4 Education OT Patient Education: Correct positioning, Instructions to caregiver, Safety issues Teaching Recipient: Patient Teaching Methods: Demonstration Response to Teaching: Verbalize Understanding OT Short Term Goals Short Term Goals Time Frame: Sep 24, 2018 Eating(FIM): 7 Grooming(FIM): 7 Bathing(FIM): 5 Bathing Location: L Arm, R Arm, L Upper Leg, R Upper Leg, L Lower Leg ( including foot), R Lower Leg (including foot), Chest, Abdomen, Buttocks, Perineal Area Upper Body Dressing(FIM): 7 Lower Body Dressing(FIM): 5 Toileting(FIM): 7 Transfers (B,C,W/C) (FIM): 5 Toilet/Commode Transfer(FIM): 5 Tub Transfer(FIM): 0 Shower Transfer(FIM): 5 Additional Short Term Goals: 1-Demonstrate ADL Tasks, 2-Verbalize Understanding , 3-ImproveStrength/Yasmin 1=Demonstrate adherence to instructed precautions during ADL tasks. 2=Patient will verbalize/demonstrate understanding of assistive devices/ modifications for ADL. 3=Patient will improve strength/tolerance for activity to enable patient to perform ADL's. OT Mcfp Goals Licensed Clinical Social Worker Goals Time Frame: Oct 08, 2018 Eating (FIM): 7 Grooming(FIM): 7 Bathing(FIM): 6 Bathing Location: L Arm, R Arm, L Upper Leg, R Upper Leg, L Lower Leg ( including foot), R Lower Leg (including foot), Chest, Abdomen, Buttocks, Perineal Area Upper Body Dressing(FIM): 7 Lower Body Dressing(FIM): 6 Toileting(FIM): 7 Transfers (B,C,W/C) (FIM): 7 Toilet/Commode Transfer(FIM): 7 Shower Transfer(FIM): 7 Additional Goals: 1-Demonstrate ADL Tasks, 2-Verbalize Understanding, 3- ImproveStrength/Yasmin 1=Demonstrate adherence to instructed precautions during ADL tasks. 2=Patient will verbalize/demonstrate understanding of assistive devices/ modifications for ADL. 3=Patient will improve strength/tolerance for activity to enable patient to perform ADL's. OT Education/Plan Problem List/Assessment Assessment: Decreased Activ Tolerance, Decreased Safety Aware, Decreased UE Strength, Impaired Bed Mobility, Impaired Funct Balance, Impaired Self-Care Skills Discharge Recommendations Plan/Recommendations: Continue POC Therapy D/C Recommendations: Home w/ Family Support Equpiment Recommendations-D/C: Extended Bath Bench, Extended Shower Sprayer, Straightener, [place] Patient/Family Goals To return home Independently with spouse with AD. Treatment Plan/Plan of Care Treatment,Training & Education: Yes Patient would benefit from OT for education, treatment and training to promote independence in ADL's, mobility, safety and/or upper extremity function for ADL' s. Plan of Care: ADL Retraining, Caregiver Training, Functional Mobility, UE Funct Exercise/Act, UE Neuromus Re-Ed/Coord Treatment Duration: Oct 08, 2018 Frequency: 5 times per week Estimated Hrs Per Day: .25 hour per day Rehab Potential: Good Time/GCodes Start Time: 15:20 Stop Time: 15:33 Total Time Billed (hr/min): 13 Billed Treatment Time 1, EVM 13 min. Total 13 minutes ELIER DALE OT Sep 10, 2018 16:28
[2018-09-10] MEDS: ADVAIR HFA 115/21 MCG INHALER 8 GM IH SCH (20:02)
[2018-09-10] MEDS: MONTELUKAST 10 MG (SINGULAIR) TAB PO SCH (21:10)
--- NOTE | 2018-09-10 21:31 | Progress Note ---
Subjective Date Seen by a Provider: Sep 10, 2018 Time Seen by a Provider: 12:30 Subjective/Events-last exam patient states pain has improved some. She still having some diarrhea. Still having occasional fever. States that she overall feels slightly improved. Still having abdominal pain that's diffuse. Her WBC trending down. Lactic acid today normal. Some nausea no emesis. Denies sweats chills shortness of breath or chest pain. Focused Exam Lactate Level 09/09/18 01:49: Lactic Acid Level 2.25*H 09/09/18 04:00: Lactic Acid Level 2.89*H 09/10/18 11:04: Lactic Acid Level 1.01 Objective Exam Vital Signs Date Time Temp Pulse Resp B/P (MAP) Pulse Ox O2 Delivery O2 Flow Rate FiO2 09/10/18 20:02 94 Room Air 09/10/18 19:08 100.3 93 18 116/53 (74) 97 Room Air 09/10/18 15:59 98.6 88 18 85/53 (64) 95 Room Air 09/10/18 15:45 98.6 09/10/18 15:12 99.4 09/10/18 12:29 96 Room Air 09/10/18 11:53 99.4 89 18 116/54 (74) 93 Room Air 09/10/18 08:13 100.4 72 18 124/75 (91) 93 Room Air 09/10/18 08:00 Room Air 09/10/18 07:44 71 09/10/18 07:30 69 09/10/18 04:34 99.6 69 14 123/57 (79) 98 09/10/18 01:00 69 09/10/18 00:55 99.1 68 18 124/58 (80) 98 I & O 09/10/18 07:00 Intake Total 0 ml Balance 0 ml Capillary Refill : Less Than 3 Seconds General Appearance: No Apparent Distress (laying in bed), Chronically ill, Obese HEENT: PERRL/EOMI, Normal ENT Inspection Neck: Non Tender, Supple Respiratory: Chest Non Tender, No Accessory Muscle Use, No Respiratory Distress Cardiovascular: Regular Rate, Rhythm Gastrointestinal: tenderness (diffuse tenderness but not having pain in the same areas all the time) Extremity: Normal Inspection Neurologic/Psychiatric: Alert, Oriented x3, No Motor/Sensory Deficits, Normal Mood/Affect, champion of sustainable design II-XII Norm as Tested Skin: Normal Color, Warm/Dry Lymphatic: No Adenopathy Results Lab Laboratory Tests 09/10/18 05:05: White Blood Count 14.7H, Red Blood Count 4.41, Hemoglobin 13.4, Hematocrit 42, Mean Corpuscular Volume 96, Mean Corpuscular Hemoglobin 30, Mean Corpuscular Hemoglobin Concent 32, Red Cell Distribution Width 13.7, Platelet Count 168, Mean Platelet Volume 11.7H, Neutrophils (%) (Auto) 78H, Lymphocytes (%) (Auto) 12, Monocytes (%) (Auto) 10, Eosinophils (%) (Auto) 0, Basophils (%) (Auto) 0, Neutrophils # (Auto) 11.5H, Lymphocytes # (Auto) 1.7, Monocytes # (Auto) 1.4H, Eosinophils # (Auto) 0.0, Basophils # (Auto) 0.0, Sodium Level 138, Potassium Level 4.4, Chloride Level 110H, Carbon Dioxide Level 22, Anion Gap 6, Blood Urea Nitrogen 27H, Creatinine 1.62H, Estimat Glomerular Filtration Rate 32, BUN/ Creatinine Ratio 17, Glucose Level 108H, Calcium Level 7.8L, Corrected Calcium 8.7, Magnesium Level 1.6L, Total Bilirubin 0.5, Aspartate Amino Transf (AST/SGOT ) 15, Alanine Aminotransferase (ALT/SGPT) 17, Alkaline Phosphatase 59, Total Protein 5.7L, Albumin 2.9L 09/10/18 11:04: Lactic Acid Level 1.01 Microbiology 09/09/18 Blood Culture - Preliminary, Resulted No growth 09/10/18 C. difficile GDH Antigen & Toxins - Final, Complete 09/09/18 Urine Culture - Preliminary, Resulted Escherichia coli Assessment/Plan Assessment/Plan Assessment/Plan gastroenteritis, UTI, sepsis, diarrhea, nausea vomiting patient on Levaquin. Urine culture grew out Escherichia coli Patient continue IV fluids. Clostridium difficile negative supportive measures Patient discussed increasing activity appreciate Dr. Vaughn's help with medical management Clinical Quality Measures DVT/VTE Risk/Contraindication: Risk Factor Score Per Nursin RFS Level Per Nursing on Admit: 3=High ZULLY GOODRICH DO Sep 10, 2018 21:31
[2018-09-11] MEDS: ONDANSETRON 4 MG/2 ML (SDV) Z0FRAN IV PRN ×4 (03:25→21:52)
[2018-09-11] MEDS: HYOSCYAMINE 0.125 MG (LEVSIN) TAB SL PRN ×4 (03:25→21:52)
[2018-09-11] MEDS: KETOROLAC 15 MG/ML VIAL IV PRN ×4 (03:25→21:52)
[2018-09-11 03:29] VITALS: BP_SYST 100; BP_SYST 94; BP_DIAS 61; BP_DIAS 62
[2018-09-11 04:50] LABS: BASOPHILS % (AUTO) 0 % (0-10); EOSINOPHILS # (AUTO) 0.1 10^3/uL (0.0-0.3); EOSINOPHILS % (AUTO) 0 % (0-10); HEMATOCRIT 38 % (35-52); HEMOGLOBIN 12.1 G/DL (11.5-16.0); LYMPHOCYTES # (AUTO) 1.6 X 10^3 (1.0-4.0); LYMPHOCYTES % (AUTO) 13 % (12-44); MEAN CORPUSCULAR HEMOGLOBIN 31 PG (25-34); MEAN CORPUSCULAR HGB CONC 32 G/DL (32-36); MEAN CORPUSCULAR VOLUME 97 FL (80-99); MEAN PLATELET VOLUME 11.5 FL (7.4-10.4); MONOCYTES # (AUTO) 1.1 X 10^3 (0.0-1.0); MONOCYTES % (AUTO) 9 % (0-12); NEUTROPHILS # (AUTO) 10.2 X 10^3 (1.8-7.8); NEUTROPHILS % (AUTO) 78 % (42-75); PLATELET COUNT 166 10^3/uL (130-400); RED CELL DISTRIBUTION WIDTH 13.7 % (10.0-14.5)
[2018-09-11 05:12] LABS: ALBUMIN 2.9 GM/DL (3.2-4.5); BILIRUBIN,TOTAL 0.4 MG/DL (0.1-1.0); CALCIUM 7.9 MG/DL (8.5-10.1); CREATININE SERUM 1.66 MG/DL (0.60-1.30); POTASSIUM 4.4 MMOL/L (3.6-5.0)
[2018-09-11] MEDS: LEVOFLOXACIN 250 MG/D5W 50 ML (PRE-MIX) IV SCH (05:59)
[2018-09-11 08:00] VITALS: BP 131/54
[2018-09-11] MEDS: ACYCLOVIR 400 MG TABLET (ZOVIRAX) PO SCH ×2 (08:16→21:00)
[2018-09-11] MEDS: LEVOTHYROXINE 75 MCG (LEVOTHROID) TABLET PO SCH (08:16)
[2018-09-11] MEDS: ASPIRIN 81 MG CHEW (CHILDREN'S ASA) PO SCH (08:16)
[2018-09-11] MEDS: toPIRamate 100 MG (TOPAMAX) TAB PO SCH (08:16)
[2018-09-11] MEDS: LORATADINE (CLARITIN) 10 MG TAB PO SCH (08:16)
[2018-09-11] MEDS: GABAPENTIN 600 MG (NEURONTIN) TAB PO SCH ×3 (08:16→21:00)
[2018-09-11] MEDS: D5 1/2 NS W/KCL 20 MEQ/L 1,000 ML IV SCH (09:07)
[2018-09-11] MEDS: PANTOPRAZOLE 40 MG (PROTONIX) VIAL IV SCH (09:07)
[2018-09-11] MEDS: ADVAIR HFA 115/21 MCG INHALER 8 GM IH SCH ×2 (10:18→20:52)
[2018-09-11] MEDS: UMECLIDINIUM BROMIDE (INCRUSE ELLIPTA) 7'S IH SCH (10:19)
--- NOTE | 2018-09-11 10:19 | Physical Therapy Daily Note ---
PT Daily Note-Current Subjective Pt is in bed and agrees to PT. Mental Status Patient Orientation: Person, Place, Situation, Normal For Age Attachments: IV Transfers Therapy Code Descriptions/Definitions Functional [place] Measure: 0=Not Assessed/NA 4=Minimal Assistance 1=Total Assistance 5=Supervision or Setup 2=Maximal Assistance 6=Modified [place] 3=Moderate Assistance 7=Complete [place] Therapy Quality Codes: 6 Independent with activity with or without an assistive device 5 Patient requires set up or clean up by helper. Patient completes activity by themselves 4 Supervision or touching assist (CGA). Dougherty provide cues , steadying assist 3 The helper provides less than half the effort to complete the activity 2 The helper provides more than half the effort to complete the activity 1 Dependent. The helper does all the effort to complete an activity 7 Patient refused to complete or attempt activity 9 The patient did not perform the activity before the current illness or injury 88 Not attempted due to Medical conditions or safety concerns Transfers (B, C, W/C) (FIM): 6 Supine to/from Sit: 6 Sit to/from Stand: 6 Weight Bearing Right Lower Extremity: Right Full Weight Bearing Left Lower Extremity: Left Full Weight Bearing Gait Training Gait (FIM): 6 Distance (FIM): 3=150 ft Distance: 400' Gait Level of Assist: 6 Gait Persons Needed: 1 Gait Assistive Device: FWW Assessment Current Status: Good Progress Pt able to transfer sit<>stand mod indep to FWW. Pt amb 400' with FWW. PT will be dismissing pt from their services. Instructed pt to continue to get up and walk and have assist with her IV pole. Pt is now in bed with all needs met. PT Short Term Goals Short Term Goals Time Frame: Sep 17, 2018 Transfers (B,C,W/C) (FIM): 5 Gait (FIM): 6 Distance (FIM): 3=150 ft Gait Distance Comment: 500' Gait Level of Assist: 6 Gait Assistive Device: FWW PT Plan Problem List Problem List: Bed Mobility Treatment/Plan Treatment Plan: Discontinue PT Treatment Plan: Bed Mobility, Education, Functional Activity Yasmin, Functional Strength, Gait, Safety, Therapeutic Exercise, Transfers Treatment Duration: Sep 17, 2018 Frequency: 6 times per week Estimated Hrs Per Day: .25 hour per day Patient and/or Family Agrees t: Yes Time/GCodes Time In: 947 Time Out: 1001 Total Billed Treatment Time: 14 Total Billed Treatment 1 visit FA 14 min DILCIA LUTZ PT Sep 11, 2018 10:19
--- NOTE | 2018-09-11 10:53 | Progress Note-Hospitalist ---
BROOKE ISRAEL DO 09/11/18 1052: Subjective HPI/CC On Admission Date Seen by Provider: Sep 11, 2018 Time Seen by Provider: 10:00 Chief complaint: Abdominal cramps. HPI: This is a 63yoWF, of my clinic Pt [facility] with past medical history of chronic renal insufficieny and recurrent UTI, who presented to the ER with gastritis. Dr. Solis admitted her. Antibiotic of Levaquin was initiated for a UTI due to multiple allergies to medications including multiple antibiotics. At this current time, abdominal cramps are helped by supportive care. I reviewed all home meds and restarted most Subjective/Events-last exam Patient doing better Walking with spouse now Afraid of eating and afraid to go home so I counseled in-depth regarding the need to proceed on with progressing to go home May need to discuss feeding tube via [place] if this type of fear continues in order to improve gastrointestinal function Very slow to recover and very dependent behavior Review of Systems Gastrointestinal: Abdominal Pain Focused Exam Lactate Level 09/09/18 01:49: Lactic Acid Level 2.25*H 09/09/18 04:00: Lactic Acid Level 2.89*H 09/10/18 11:04: Lactic Acid Level 1.01 Objective Exam Vital Signs Vital Signs Date Time Temp Pulse Resp B/P (MAP) Pulse Ox O2 Delivery O2 Flow Rate FiO2 09/11/18 15:38 98.3 68 18 100/50 (67) 99 Room Air Capillary Refill : Less Than 3 Seconds General Appearance: No Apparent Distress, Chronically ill, Obese HEENT: PERRL/EOMI, Normal ENT Inspection Neck: Non Tender, Supple Respiratory: Chest Non Tender, No Accessory Muscle Use, No Respiratory Distress Cardiovascular: Regular Rate, Rhythm, No Edema Gastrointestinal: Soft; No Guarding, No Rebound; Tenderness (diffusely) Rectal: Deferred Back: Normal Inspection, No CVA Tenderness, No Vertebral Tenderness Extremity: Normal Inspection Neurologic/Psychiatric: Alert, Oriented x3, No Motor/Sensory Deficits, Normal Mood/Affect, inspector final assembly electrical II-XII Norm as Tested Skin: Normal Color, Warm/Dry Lymphatic: No Adenopathy Results/Procedures Lab Laboratory Tests 09/11/18 04:45 Patient resulted labs reviewed. Imaging: Reviewed Imaging Films, Reviewed Imaging Report Assessment/Plan Assessment and Plan Assess & Plan/Chief Complaint Assessment: Sepsis resolved UTI on FQ Leukocytosis improved Abdominal pain acute Monoclonal gammopathy vs. B-cell lymphoma Hypothyroidism HTN Headache chronic Plan: IVFHL Pain meds Supportive care IV anti-emetics May need feeding tube to help support GI system since she is afraid to eat Diagnosis/Problems Diagnosis/Problems (1) Sepsis Status: Resolved Qualifiers: Sepsis type: sepsis due to unspecified organism Qualified Codes: A41.9 - Sepsis, unspecified organism Resolution Date/Time: 09/11/18 @ 17:38 (2) Urinary tract infection Status: Acute Qualifiers: Urinary tract infection type: acute cystitis Hematuria presence: without hematuria Qualified Codes: N30.00 - Acute cystitis without hematuria (3) Gastroenteritis Status: Acute (4) Dehydration Status: Resolved Resolution Date/Time: 09/11/18 @ 17:38 (5) Hypomagnesemia Status: Resolved Resolution Date/Time: 09/11/18 @ 17:38 (6) Chronic renal insufficiency Status: Chronic Qualifiers: Chronic kidney disease stage: stage 2 (mild) Qualified Codes: N18.2 - Chronic kidney disease, stage 2 (mild) (7) Poor venous access Status: Chronic Clinical Quality Measures DVT/VTE Risk/Contraindication: Risk Factor Score Per Nursin RFS Level Per Nursing on Admit: 3=High RTA GONSALES MEDICAL STUDENT 09/11/18 1321: Subjective HPI/CC On Admission CC: abdominal pain, vomiting, diarrhea HPI: This is 63 yo white female who presented to ER yesterday evening after having several episodes each of vomiting and diarrhea which started yesterday around 4pm. She states she had a hamburger for breakfast and felt fine until she started having diffuse, cramping abdominal pain. She denies sick contacts or recent travel. She has a hx of many abdominal surgeries, including some form of bariatric procedure. The pt also states she has CKD and is on Levaquin for a "kidney infection". 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 It is unclear from the patient and from hospital records whether the kidney disease preceded the discovery of the monoclonal gammopathy. Dr. Solis was consulted to place a central line and is also following the patient. Subjective/Events-last exam Pt says her pain is much improved, now 5/10 rather than the 12/10 she had on arrival Also notes decreases distention of her upper abdomen Denies vomiting, still has some nausea and was very reluctant to start drinking liquids stating she was scared to vomit again Dr. Israel discussed the need to try small amounts of liquids PO and to get up and move as much as possible today for hopeful d/c home tomorrow C. diff antigen testing was negative Review of Systems General: No Chills HEENT: No Head Aches Pulmonary: No Dyspnea Cardiovascular: No: Chest Pain Gastrointestinal: Nausea, Diarrhea; No: Vomiting, Abdominal Pain, Constipation Genitourinary: No Hematuria Neurological: No: Weakness Objective Exam General Appearance: No Apparent Distress (laying in bed), Chronically ill, Obese HEENT: PERRL/EOMI, Normal ENT Inspection Neck: Non Tender, Supple Respiratory: Chest Non Tender, Lungs Clear, Normal Breath Sounds, No Respiratory Distress Cardiovascular: Regular Rate, Rhythm, No Edema, No Gallop, No Murmur, Normal Peripheral Pulses Gastrointestinal: Normal Bowel Sounds, No Organomegaly, No Pulsatile Mass, Soft ; No Distended Rectal: Deferred Extremity: No Calf Tenderness Neurologic/Psychiatric: Alert, Oriented x3 Skin: Normal Color, Warm/Dry Lymphatic: No Adenopathy Assessment/Plan Assessment and Plan Assess & Plan/Chief Complaint Assessment: Gastroenteritis, likely viral Sepsis, resolved UTI hypomagnesemia, resolved CKD COPD Hypothryoidism Monoclonal gammopathy vs. B-cell lymphoma Plan: Supportive care including IVF, pain, nausea control Continue Levaquin for UTI Continue home meds Attempt PO liquids and food PT/OT Diagnosis/Problems Diagnosis/Problems (1) Gastroenteritis Status: Acute (2) Urinary tract infection Status: Acute Qualifiers: Urinary tract infection type: acute cystitis Hematuria presence: without hematuria Qualified Codes: N30.00 - Acute cystitis without hematuria (3) Dehydration Status: Resolved Resolution Date/Time: 09/11/18 @ 17:38 (4) Sepsis Status: Resolved Qualifiers: Sepsis type: sepsis due to unspecified organism Qualified Codes: A41.9 - Sepsis, unspecified organism Resolution Date/Time: 09/11/18 @ 17:38 (5) Chronic renal insufficiency Status: Chronic Qualifiers: Chronic kidney disease stage: stage 2 (mild) Qualified Codes: N18.2 - Chronic kidney disease, stage 2 (mild) (6) Poor venous access Status: Chronic BROOKE ISRAEL DO Sep 11, 2018 10:52 TRA GONSALES MEDICAL STUDENT Sep 11, 2018 13:21
--- NOTE | 2018-09-11 11:42 | NUR ---
PER DR. ISRAEL, THIS RN SPOKE TO PATIENT AND ABOUT INCREASING CALORIC INTAKE. TOLD PATIENT ABOUT POSSIBLE NEED FOR FEEDING TUBE PLACEMENT. PATIENT DISAGREES WITH FEEDING TUBE AND AGREES TO TRY TO INCREASE INTAKE OF CLEAR LIQUIDS TODAY. THIS RN WILL MONITOR HOW MUCH INTAKE IS RECEIVED AND POSSIBLE NAUSEA/VOMITING.
[2018-09-11 12:00] VITALS: BP 121/61
--- NOTE | 2018-09-11 12:05 | Occupational Ther Daily Note ---
OT Current Status-Daily Note Subjective Pt in bed, agrees to therapy. Pt reports 3/10 abdominal pain Mental Status/Objective Therapy Code Descriptions/Definitions Functional [place] Measure: 0=Not Assessed/NA 4=Minimal Assistance 1=Total Assistance 5=Supervision or Setup 2=Maximal Assistance 6=Modified [place] 3=Moderate Assistance 7=Complete [place] Attachments: IV ADL-Treatment Pt supine to sit with assist for trunk. Sit to stand with modified independence. Gait to restroom with FWW, no LOB noted. Pt stood at sink to complete grooming tasks. Pt brushed teeth and washed face with modified independence. Transfer to toilet with modified independence. Pt able to manage clothing, but requires assist for hygiene. Increased time for ADLs and mobility. Pt returned to bed, assist to lift feet into bed. Pt resting in bed with needs met and spouse present after session. Grooming (FIM): 6 Toileting (FIM): 3 Toilet/Commode Transfer (FIM): 6 OT Short Term Goals Short Term Goals Time Frame: Sep 24, 2018 Eating(FIM): 7 Grooming(FIM): 7 Bathing(FIM): 5 Bathing Location: L Arm, R Arm, L Upper Leg, R Upper Leg, L Lower Leg ( including foot), R Lower Leg (including foot), Chest, Abdomen, Buttocks, Perineal Area Upper Body Dressing(FIM): 7 Lower Body Dressing(FIM): 5 Toileting(FIM): 7 Transfers (B,C,W/C) (FIM): 5 Toilet/Commode Transfer(FIM): 5 Tub Transfer(FIM): 0 Shower Transfer(FIM): 5 Additional Short Term Goals: 1-Demonstrate ADL Tasks, 2-Verbalize Understanding , 3-ImproveStrength/Yasmin 1=Demonstrate adherence to instructed precautions during ADL tasks. 2=Patient will verbalize/demonstrate understanding of assistive devices/ modifications for ADL. 3=Patient will improve strength/tolerance for activity to enable patient to perform ADL's. OT Finisher Hot Strip Goals Custodial Goals Time Frame: Oct 08, 2018 Eating (FIM): 7 Grooming(FIM): 7 Bathing(FIM): 6 Bathing Location: L Arm, R Arm, L Upper Leg, R Upper Leg, L Lower Leg ( including foot), R Lower Leg (including foot), Chest, Abdomen, Buttocks, Perineal Area Upper Body Dressing(FIM): 7 Lower Body Dressing(FIM): 6 Toileting(FIM): 7 Transfers (B,C,W/C) (FIM): 7 Toilet/Commode Transfer(FIM): 7 Shower Transfer(FIM): 7 Additional Goals: 1-Demonstrate ADL Tasks, 2-Verbalize Understanding, 3- ImproveStrength/Yasmin 1=Demonstrate adherence to instructed precautions during ADL tasks. 2=Patient will verbalize/demonstrate understanding of assistive devices/ modifications for ADL. 3=Patient will improve strength/tolerance for activity to enable patient to perform ADL's. OT Education/Plan Discharge Recommendations Plan/Recommendations: Continue POC Treatment Plan/Plan of Care Patient would benefit from OT for education, treatment and training to promote independence in ADL's, mobility, safety and/or upper extremity function for ADL' s. Plan of Care: ADL Retraining, Caregiver Training, Functional Mobility, UE Funct Exercise/Act, UE Neuromus Re-Ed/Coord Treatment Duration: Oct 08, 2018 Frequency: 5 times per week Estimated Hrs Per Day: .25 hour per day Rehab Potential: Good Time/GCodes Start Time: 11:04 Stop Time: 11:28 Total Time Billed (hr/min): 24 Billed Treatment Time 1 visit, ADLx2(24minutes) TRISH WILL OT Sep 11, 2018 12:05
[2018-09-11 15:38] VITALS: BP 100/50
--- NOTE | 2018-09-11 18:48 | Progress Note ---
Subjective Date Seen by a Provider: Sep 11, 2018 Time Seen by a Provider: 09:00 Subjective/Events-last exam ambulating. feeling better, but still having abdominal pain. still with diarrhea. having nausea but no emesis. culture urine e-coli sensitive to Levaquin. NPO currently. Slowly improving. Focused Exam Lactate Level 09/09/18 01:49: Lactic Acid Level 2.25*H 09/09/18 04:00: Lactic Acid Level 2.89*H 09/10/18 11:04: Lactic Acid Level 1.01 Objective Exam Vital Signs Date Time Temp Pulse Resp B/P (MAP) Pulse Ox O2 Delivery O2 Flow Rate FiO2 09/11/18 15:38 98.3 68 18 100/50 (67) 99 Room Air 09/11/18 12:00 98.2 70 18 121/61 (81) 96 Room Air 09/11/18 10:18 93 Room Air 09/11/18 08:00 Room Air 09/11/18 08:00 97.9 68 20 131/54 (79) 97 Room Air 09/11/18 03:29 99.3 68 18 100/62 (75) 94 Room Air 09/10/18 23:04 100.4 108 18 128/62 (84) 97 Room Air 09/10/18 20:20 Room Air 09/10/18 20:02 94 Room Air 09/10/18 19:08 100.3 93 18 116/53 (74) 97 Room Air I & O 09/11/18 07:00 Intake Total 1000 ml Output Total 450 ml Balance 550 ml Capillary Refill : Less Than 3 Seconds General Appearance: No Apparent Distress, Chronically ill, Obese HEENT: PERRL/EOMI, Normal ENT Inspection Neck: Non Tender, Supple Respiratory: Chest Non Tender, No Accessory Muscle Use, No Respiratory Distress Cardiovascular: Regular Rate, Rhythm, No Edema Gastrointestinal: tenderness (diffuse tenderness but not having pain in the same areas all the time less tender) Extremity: Normal Inspection Neurologic/Psychiatric: Alert, Oriented x3, No Motor/Sensory Deficits, Normal Mood/Affect, 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 Norm as Tested Skin: Normal Color, Warm/Dry Lymphatic: No Adenopathy Results Lab Laboratory Tests 09/11/18 04:45: White Blood Count 13.0H, Red Blood Count 3.95L, Hemoglobin 12.1, Hematocrit 38, Mean Corpuscular Volume 97, Mean Corpuscular Hemoglobin 31, Mean Corpuscular Hemoglobin Concent 32, Red Cell Distribution Width 13.7, Platelet Count 166, Mean Platelet Volume 11.5H, Neutrophils (%) (Auto) 78H, Lymphocytes (%) (Auto) 13, Monocytes (%) (Auto) 9, Eosinophils (%) (Auto) 0, Basophils (%) (Auto) 0, Neutrophils # (Auto) 10.2H, Lymphocytes # (Auto) 1.6, Monocytes # (Auto) 1.1H, Eosinophils # (Auto) 0.1, Basophils # (Auto) 0.0, Sodium Level 136, Potassium Level 4.4, Chloride Level 111H, Carbon Dioxide Level 20L, Anion Gap 5, Blood Urea Nitrogen 23H, Creatinine 1.66H, Estimat Glomerular Filtration Rate 31, BUN/ Creatinine Ratio 14, Glucose Level 109H, Calcium Level 7.9L, Corrected Calcium 8.8, Total Bilirubin 0.4, Aspartate Amino Transf (AST/SGOT) 11, Alanine Aminotransferase (ALT/SGPT) 14, Alkaline Phosphatase 76, Total Protein 6.0L, Albumin 2.9L Microbiology 09/09/18 Blood Culture - Preliminary, Resulted No growth 09/10/18 C. difficile GDH Antigen & Toxins - Final, Complete 09/09/18 Urine Culture - Final, Complete Escherichia coli Assessment/Plan Assessment/Plan Assessment/Plan gastroenteritis, UTI, sepsis, diarrhea, nausea vomiting patient on Levaquin. Urine culture grew out Escherichia coli-sensitive to levaquin Patient continue IV fluids. Clostridium difficile negative supportive measures, start clears Patient discussed increasing activity appreciate Dr. Vaughn's help with medical management Clinical Quality Measures DVT/VTE Risk/Contraindication: Risk Factor Score Per Nursin RFS Level Per Nursing on Admit: 3=High ZULLY GOODRICH DO Sep 11, 2018 18:48
[2018-09-11 19:07] VITALS: BP 114/53
[2018-09-11] MEDS: MONTELUKAST 10 MG (SINGULAIR) TAB PO SCH (21:00)
[2018-09-12] VITALS: BP 115/53
[2018-09-12] MEDS: ONDANSETRON 4 MG/2 ML (SDV) Z0FRAN IV PRN ×3 (04:32→17:55)
[2018-09-12] MEDS: HYOSCYAMINE 0.125 MG (LEVSIN) TAB SL PRN ×3 (04:32→17:55)
[2018-09-12] MEDS: KETOROLAC 15 MG/ML VIAL IV PRN ×3 (04:32→17:57)
[2018-09-12] MEDS: D5 1/2 NS W/KCL 20 MEQ/L 1,000 ML IV SCH ×2 (04:36→20:19)
[2018-09-12 05:01] LABS: BASOPHILS % (AUTO) 0 % (0-10); EOSINOPHILS # (AUTO) 0.1 10^3/uL (0.0-0.3); EOSINOPHILS % (AUTO) 1 % (0-10); HEMATOCRIT 33 % (35-52); HEMOGLOBIN 10.5 G/DL (11.5-16.0); LYMPHOCYTES # (AUTO) 1.2 X 10^3 (1.0-4.0); LYMPHOCYTES % (AUTO) 13 % (12-44); MEAN CORPUSCULAR HEMOGLOBIN 31 PG (25-34); MEAN CORPUSCULAR HGB CONC 32 G/DL (32-36); MEAN CORPUSCULAR VOLUME 97 FL (80-99); MEAN PLATELET VOLUME 11.4 FL (7.4-10.4); MONOCYTES # (AUTO) 0.8 X 10^3 (0.0-1.0); MONOCYTES % (AUTO) 8 % (0-12); NEUTROPHILS # (AUTO) 7.7 X 10^3 (1.8-7.8); NEUTROPHILS % (AUTO) 78 % (42-75); PLATELET COUNT 158 10^3/uL (130-400); WHITE BLOOD COUNT 9.8 10^3/uL (4.3-11.0)
[2018-09-12] MEDS: LEVOFLOXACIN 250 MG/D5W 50 ML (PRE-MIX) IV SCH (05:20)
[2018-09-12 05:37] LABS: ALBUMIN 2.9 GM/DL (3.2-4.5); BILIRUBIN,TOTAL 0.3 MG/DL (0.1-1.0); CALCIUM 8.2 MG/DL (8.5-10.1); CREATININE SERUM 1.48 MG/DL (0.60-1.30); POTASSIUM 4.1 MMOL/L (3.6-5.0); TOTAL PROTEIN 5.7 GM/DL (6.4-8.2)
[2018-09-12 08:00] VITALS: BP 113/76
[2018-09-12] MEDS: UMECLIDINIUM BROMIDE (INCRUSE ELLIPTA) 7'S IH SCH (09:22)
[2018-09-12] MEDS: ADVAIR HFA 115/21 MCG INHALER 8 GM IH SCH ×2 (09:22→20:26)
[2018-09-12] MEDS: PANTOPRAZOLE 40 MG (PROTONIX) VIAL IV SCH (09:59)
[2018-09-12] MEDS: LEVOTHYROXINE 75 MCG (LEVOTHROID) TABLET PO SCH (10:00)
[2018-09-12] MEDS: ASPIRIN 81 MG CHEW (CHILDREN'S ASA) PO SCH (10:00)
[2018-09-12] MEDS: LORATADINE (CLARITIN) 10 MG TAB PO SCH (10:01)
[2018-09-12] MEDS: ACYCLOVIR 400 MG TABLET (ZOVIRAX) PO SCH ×2 (10:01→20:28)
[2018-09-12] MEDS: GABAPENTIN 600 MG (NEURONTIN) TAB PO SCH ×3 (10:01→20:28)
[2018-09-12] MEDS: toPIRamate 100 MG (TOPAMAX) TAB PO SCH (10:01)
--- NOTE | 2018-09-12 11:02 | Progress Note-Hospitalist ---
Subjective HPI/CC On Admission Date Seen by Provider: Sep 12, 2018 Time Seen by Provider: 11:15 CC: abdominal pain, vomiting, diarrhea HPI: This is 63 yo white female who presented to ER yesterday evening after having several episodes each of vomiting and diarrhea which started yesterday around 4pm. She states she had a hamburger for breakfast and felt fine until she started having diffuse, cramping abdominal pain. She denies sick contacts or recent travel. She has a hx of many abdominal surgeries, including some form of bariatric procedure. The pt also states she has CKD and is on Levaquin for a "kidney infection". 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 It is unclear from the patient and from hospital records whether the kidney disease preceded the discovery of the monoclonal gammopathy. Dr. Solis was consulted to place a central line and is also following the patient. Subjective/Events-last exam Much improved today BM+ Eating soft bland diet Pain improved Tolerating Levaquin HLIVF UCx reviewed Creat improved Review of Systems General: Fatigue Gastrointestinal: Abdominal Pain Focused Exam Lactate Level 09/10/18 11:04: Lactic Acid Level 1.01 Objective Exam Vital Signs Vital Signs Date Time Temp Pulse Resp B/P (MAP) Pulse Ox O2 Delivery O2 Flow Rate FiO2 09/12/18 16:40 98.0 62 20 113/74 (87) 96 Room Air Capillary Refill : Less Than 3 Seconds General Appearance: No Apparent Distress, Chronically ill, Obese HEENT: PERRL/EOMI, Normal ENT Inspection Neck: Non Tender, Supple Respiratory: Chest Non Tender, No Accessory Muscle Use, No Respiratory Distress Cardiovascular: Regular Rate, Rhythm, No Edema Gastrointestinal: Non Tender, Soft; No Guarding, No Rebound Rectal: Deferred Back: Normal Inspection, No CVA Tenderness, No Vertebral Tenderness Extremity: Normal Inspection Neurologic/Psychiatric: Alert, Oriented x3, No Motor/Sensory Deficits, Normal Mood/Affect, 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 Imaging: Reviewed Imaging Films, Reviewed Imaging Report Assessment/Plan Assessment and Plan Assess & Plan/Chief Complaint Assessment: Sepsis resolved UTI on FQ Leukocytosis resolved Abdominal pain acute-improved Monoclonal gammopathy vs. B-cell lymphoma Hypothyroidism HTN Headache chronic Plan: IVFHL Pain meds Supportive care IV anti-emetics Slow recovery but appears to be close to DC Diagnosis/Problems Diagnosis/Problems (1) Sepsis Status: Resolved Qualifiers: Sepsis type: sepsis due to unspecified organism Qualified Codes: A41.9 - Sepsis, unspecified organism Resolution Date/Time: 09/11/18 @ 17:38 (2) Urinary tract infection Status: Acute Qualifiers: Urinary tract infection type: acute cystitis Hematuria presence: without hematuria Qualified Codes: N30.00 - Acute cystitis without hematuria (3) Gastroenteritis Status: Acute (4) Dehydration Status: Resolved Resolution Date/Time: 09/11/18 @ 17:38 (5) Hypomagnesemia Status: Resolved Resolution Date/Time: 09/11/18 @ 17:38 (6) Chronic renal insufficiency Status: Chronic Qualifiers: Chronic kidney disease stage: stage 2 (mild) Qualified Codes: N18.2 - Chronic kidney disease, stage 2 (mild) (7) Poor venous access Status: Chronic Clinical Quality Measures DVT/VTE Risk/Contraindication: Risk Factor Score Per Nursin RFS Level Per Nursing on Admit: 3=High BROOKE ISRAEL DO Sep 12, 2018 11:02
--- NOTE | 2018-09-12 12:37 | Progress Note (SOAP) ---
Subjective Date Seen by a Provider: Sep 12, 2018 Time Seen by a Provider: 12:15 Subjective/Events-last exam Patient seen with Dr. De Leon. Patient reports still having abdominal tenderness but has improved since admission. No N/V. No fever/chills. Still having diarrhea. Started soft foods this AM and tolerating so far. Ambulating. Does report reflux and was started on Protonix and has helped some. Focused Exam Lactate Level 09/10/18 11:04: Lactic Acid Level 1.01 Objective Exam Vital Signs Date Time Temp Pulse Resp B/P (MAP) Pulse Ox O2 Delivery O2 Flow Rate FiO2 09/12/18 09:22 92 Room Air 09/12/18 08:00 92 Room Air 09/12/18 08:00 98.4 62 18 113/76 (88) 95 Room Air 09/12/18 00:00 97.5 71 18 115/53 (73) 94 Room Air 09/11/18 20:54 93 Room Air 09/11/18 20:00 Room Air 09/11/18 19:07 98.3 71 20 114/53 (73) 98 Room Air 09/11/18 15:38 98.3 68 18 100/50 (67) 99 Room Air I & O 09/12/18 07:00 Intake Total 1100 ml Output Total 1400 ml Balance -300 ml Capillary Refill : Less Than 3 Seconds General Appearance: No Apparent Distress, WD/WN, Obese Neck: Full Range of Motion, Normal Inspection, Non Tender, Supple Respiratory: Lungs Clear, Normal Breath Sounds, No Accessory Muscle Use, No Respiratory Distress Cardiovascular: Regular Rate, Rhythm, No Murmur Gastrointestinal: normal bowel sounds, tenderness (diffuse) Extremity: Normal Inspection, Normal Range of Motion Neurologic/Psychiatric: Alert, Oriented x3 Skin: Normal Color, Warm/Dry Lymphatic: No Adenopathy Results Lab Laboratory Tests 09/12/18 04:45: White Blood Count 9.8, Red Blood Count 3.44L, Hemoglobin 10.5L, Hematocrit 33L, Mean Corpuscular Volume 97, Mean Corpuscular Hemoglobin 31, Mean Corpuscular Hemoglobin Concent 32, Red Cell Distribution Width 14.0, Platelet Count 158, Mean Platelet Volume 11.4H, Neutrophils (%) (Auto) 78H, Lymphocytes (%) (Auto) 13, Monocytes (%) (Auto) 8, Eosinophils (%) (Auto) 1, Basophils (%) (Auto) 0, Neutrophils # (Auto) 7.7, Lymphocytes # (Auto) 1.2, Monocytes # (Auto) 0.8, Eosinophils # (Auto) 0.1, Basophils # (Auto) 0.0, Sodium Level 142, Potassium Level 4.1, Chloride Level 114H, Carbon Dioxide Level 21, Anion Gap 7, Blood Urea Nitrogen 17, Creatinine 1.48H, Estimat Glomerular Filtration Rate 36, BUN/ Creatinine Ratio 11, Glucose Level 111H, Calcium Level 8.2L, Corrected Calcium 9.1, Total Bilirubin 0.3, Aspartate Amino Transf (AST/SGOT) 14, Alanine Aminotransferase (ALT/SGPT) 16, Alkaline Phosphatase 76, Total Protein 5.7L, Albumin 2.9L Microbiology 09/09/18 Blood Culture - Preliminary, Resulted No growth 09/10/18 C. difficile GDH Antigen & Toxins - Final, Complete 09/09/18 Urine Culture - Final, Complete Escherichia coli Assessment/Plan Assessment/Plan Assess & Plan/Chief Complaint A 63 year old female with gastroenteritis, UTI, sepsis, diarrhea, nausea vomiting Continue IV fluids, abx, pain, nausea meds. Ambulate. Clostridium difficile negative Start Questran daily for diarrhea Started on DYS2 diet Continue with medical management. Clinical Quality Measures DVT/VTE Risk/Contraindication: Risk Factor Score Per Nursin RFS Level Per Nursing on Admit: 3=High LEO GARRIDO APRN Sep 12, 2018 12:37
[2018-09-12 16:40] VITALS: BP 113/74
[2018-09-12] MEDS: MONTELUKAST 10 MG (SINGULAIR) TAB PO SCH (20:09)
[2018-09-12 23:40] VITALS: BP 98/62
[2018-09-13] MEDS: ONDANSETRON 4 MG/2 ML (SDV) Z0FRAN IV PRN ×4 (00:06→21:14)
[2018-09-13] MEDS: HYOSCYAMINE 0.125 MG (LEVSIN) TAB SL PRN ×3 (00:06→13:44)
[2018-09-13] MEDS: KETOROLAC 15 MG/ML VIAL IV PRN ×4 (00:06→21:14)
[2018-09-13] MEDS: LEVOFLOXACIN 250 MG/D5W 50 ML (PRE-MIX) IV SCH (06:45)
[2018-09-13 06:58] LABS: BASOPHILS % (AUTO) 0 % (0-10); EOSINOPHILS # (AUTO) 0.2 10^3/uL (0.0-0.3); EOSINOPHILS % (AUTO) 3 % (0-10); HEMATOCRIT 31 % (35-52); HEMOGLOBIN 9.6 G/DL (11.5-16.0); LYMPHOCYTES # (AUTO) 1.2 X 10^3 (1.0-4.0); LYMPHOCYTES % (AUTO) 19 % (12-44); MEAN CORPUSCULAR HEMOGLOBIN 30 PG (25-34); MEAN CORPUSCULAR HGB CONC 31 G/DL (32-36); MEAN CORPUSCULAR VOLUME 98 FL (80-99); MEAN PLATELET VOLUME 11.1 FL (7.4-10.4); MONOCYTES # (AUTO) 0.6 X 10^3 (0.0-1.0); MONOCYTES % (AUTO) 10 % (0-12); NEUTROPHILS # (AUTO) 4.3 X 10^3 (1.8-7.8); NEUTROPHILS % (AUTO) 67 % (42-75); PLATELET COUNT 159 10^3/uL (130-400); RED CELL DISTRIBUTION WIDTH 14.3 % (10.0-14.5); WHITE BLOOD COUNT 6.4 10^3/uL (4.3-11.0)
[2018-09-13 07:18] LABS: ALBUMIN 2.9 GM/DL (3.2-4.5); BILIRUBIN,TOTAL 0.3 MG/DL (0.1-1.0); CALCIUM 8.5 MG/DL (8.5-10.1); CREATININE SERUM 1.4 MG/DL (0.60-1.30); POTASSIUM 4.3 MMOL/L (3.6-5.0); TOTAL PROTEIN 5.5 GM/DL (6.4-8.2)
[2018-09-13] MEDS: UMECLIDINIUM BROMIDE (INCRUSE ELLIPTA) 7'S IH SCH (07:52)
[2018-09-13] MEDS: ADVAIR HFA 115/21 MCG INHALER 8 GM IH SCH ×2 (07:53→23:08)
[2018-09-13 08:00] VITALS: BP 117/74
[2018-09-13] MEDS: LEVOTHYROXINE 75 MCG (LEVOTHROID) TABLET PO SCH (08:42)
[2018-09-13] MEDS: PANTOPRAZOLE 40 MG (PROTONIX) VIAL IV SCH (08:42)
[2018-09-13] MEDS: ASPIRIN 81 MG CHEW (CHILDREN'S ASA) PO SCH (08:43)
[2018-09-13] MEDS: LORATADINE (CLARITIN) 10 MG TAB PO SCH (08:59)
[2018-09-13] MEDS: GABAPENTIN 600 MG (NEURONTIN) TAB PO SCH ×3 (09:00→21:15)
[2018-09-13] MEDS: toPIRamate 100 MG (TOPAMAX) TAB PO SCH (09:00)
[2018-09-13] MEDS: CHOLESTYRAMINE 4 GM (QUESTRAN LITE, PREVALITE) PKT PO SCH (09:00)
[2018-09-13] MEDS: ACYCLOVIR 400 MG TABLET (ZOVIRAX) PO SCH ×2 (09:00→21:16)
--- NOTE | 2018-09-13 11:29 | Progress Note (SOAP) ---
Subjective Date Seen by a Provider: Sep 13, 2018 Time Seen by a Provider: 10:25 Subjective/Events-last exam Patient seen with Dr. De Leon. Patient reports doing better. Still having episodes of abdominal pain and nausea but is tolerable with medications. Tolerating diet and ambulating. Having BMs. No fever/chills. Patient does report dry and itchy eyes. Objective Exam Vital Signs Date Time Temp Pulse Resp B/P (MAP) Pulse Ox O2 Delivery O2 Flow Rate FiO2 09/13/18 08:00 92 Room Air 09/13/18 08:00 98.8 60 18 117/74 (88) 96 Room Air 09/13/18 07:53 94 Room Air 09/12/18 23:40 98.1 59 24 98/62 (74) 97 Room Air 09/12/18 20:26 93 Room Air 09/12/18 20:00 Room Air 09/12/18 16:40 98.0 62 20 113/74 (87) 96 Room Air I & O 09/13/18 06:59 Intake Total 1800 ml Balance 1800 ml Capillary Refill : Less Than 3 Seconds General Appearance: No Apparent Distress, WD/WN Neck: Full Range of Motion, Normal Inspection, Non Tender, Supple Respiratory: Lungs Clear, Normal Breath Sounds, No Accessory Muscle Use, No Respiratory Distress Cardiovascular: Regular Rate, Rhythm, No Murmur Gastrointestinal: normal bowel sounds, tenderness (Epigastric area) Extremity: Normal Inspection, Normal Range of Motion Neurologic/Psychiatric: Alert, Oriented x3 Skin: Normal Color, Warm/Dry Results Lab Laboratory Tests 09/13/18 06:50: White Blood Count 6.4, Red Blood Count 3.20L, Hemoglobin 9.6L, Hematocrit 31L, Mean Corpuscular Volume 98, Mean Corpuscular Hemoglobin 30, Mean Corpuscular Hemoglobin Concent 31L, Red Cell Distribution Width 14.3, Platelet Count 159, Mean Platelet Volume 11.1H, Neutrophils (%) (Auto) 67, Lymphocytes (%) (Auto) 19 , Monocytes (%) (Auto) 10, Eosinophils (%) (Auto) 3, Basophils (%) (Auto) 0, Neutrophils # (Auto) 4.3, Lymphocytes # (Auto) 1.2, Monocytes # (Auto) 0.6, Eosinophils # (Auto) 0.2, Basophils # (Auto) 0.0, Sodium Level 142, Potassium Level 4.3, Chloride Level 114H, Carbon Dioxide Level 22, Anion Gap 6, Blood Urea Nitrogen 17, Creatinine 1.40H, Estimat Glomerular Filtration Rate 38, BUN/ Creatinine Ratio 12, Glucose Level 102, Calcium Level 8.5, Corrected Calcium 9.4 , Total Bilirubin 0.3, Aspartate Amino Transf (AST/SGOT) 19, Alanine Aminotransferase (ALT/SGPT) 20, Alkaline Phosphatase 89, Total Protein 5.5L, Albumin 2.9L Microbiology 09/09/18 Blood Culture - Preliminary, Resulted No growth 09/10/18 C. difficile GDH Antigen & Toxins - Final, Complete 09/09/18 Urine Culture - Final, Complete Escherichia coli Assessment/Plan Assessment/Plan Assess & Plan/Chief Complaint A 63 year old female with gastroenteritis, UTI, sepsis, diarrhea, nausea vomiting Continue IV fluids, abx, pain, nausea meds. Ambulate. Clostridium difficile negative Start Questran daily for diarrhea Continue with medical management. Start artificial tears for dry eyes. Advanced to regular diet. Clinical Quality Measures DVT/VTE Risk/Contraindication: Risk Factor Score Per Nursin RFS Level Per Nursing on Admit: 3=High LEO GARRIDO APRN Sep 13, 2018 11:29
--- NOTE | 2018-09-13 11:56 | Progress Note-Hospitalist ---
Subjective HPI/CC On Admission Date Seen by Provider: Sep 13, 2018 Time Seen by Provider: 10:30 CC: abdominal pain, vomiting, diarrhea HPI: This is 63 yo white female who presented to ER yesterday evening after having several episodes each of vomiting and diarrhea which started yesterday around 4pm. She states she had a hamburger for breakfast and felt fine until she started having diffuse, cramping abdominal pain. She denies sick contacts or recent travel. She has a hx of many abdominal surgeries, including some form of bariatric procedure. The pt also states she has CKD and is on Levaquin for a "kidney infection". 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 It is unclear from the patient and from hospital records whether the kidney disease preceded the discovery of the monoclonal gammopathy. Dr. Solis was consulted to place a central line and is also following the patient. Subjective/Events-last exam Patient doing much better Advancing diet to regular but still soft Levaquin tolerated Ambulating well with spouse No pain is reported today Review of Systems General: Fatigue Objective Exam Vital Signs Vital Signs Date Time Temp Pulse Resp B/P (MAP) Pulse Ox O2 Delivery O2 Flow Rate FiO2 09/13/18 08:00 92 Room Air 09/13/18 08:00 98.8 60 18 117/74 (88) Capillary Refill : Less Than 3 Seconds General Appearance: No Apparent Distress, WD/WN HEENT: PERRL/EOMI, Normal ENT Inspection Neck: Full Range of Motion, Normal Inspection, Non Tender, Supple Respiratory: Lungs Clear, Normal Breath Sounds, No Accessory Muscle Use, No Respiratory Distress Cardiovascular: Regular Rate, Rhythm, No Murmur Gastrointestinal: Non Tender, Soft; No Guarding, No Rebound Rectal: Deferred Back: Normal Inspection, No CVA Tenderness, No Vertebral Tenderness Extremity: Normal Inspection, Normal Range of Motion Neurologic/Psychiatric: Alert, Oriented x3 Skin: Normal Color, Warm/Dry Lymphatic: No Adenopathy Results/Procedures Lab Laboratory Tests 09/13/18 06:50 Patient resulted labs reviewed. Imaging: Reviewed Imaging Films, Reviewed Imaging Report Assessment/Plan Assessment and Plan Assess & Plan/Chief Complaint Assessment: Sepsis resolved UTI on FQ Leukocytosis resolved Abdominal pain acute-improved Monoclonal gammopathy vs. B-cell lymphoma Hypothyroidism HTN Headache chronic Plan: IVFHL Pain meds Supportive care IV anti-emetics Slow recovery but appears to be close to DC Diagnosis/Problems Diagnosis/Problems (1) Sepsis Status: Resolved Qualifiers: Sepsis type: sepsis due to unspecified organism Qualified Codes: A41.9 - Sepsis, unspecified organism Resolution Date/Time: 09/11/18 @ 17:38 (2) Urinary tract infection Status: Acute Qualifiers: Urinary tract infection type: acute cystitis Hematuria presence: without hematuria Qualified Codes: N30.00 - Acute cystitis without hematuria (3) Gastroenteritis Status: Acute (4) Dehydration Status: Resolved Resolution Date/Time: 09/11/18 @ 17:38 (5) Hypomagnesemia Status: Resolved Resolution Date/Time: 09/11/18 @ 17:38 (6) Chronic renal insufficiency Status: Chronic Qualifiers: Chronic kidney disease stage: stage 2 (mild) Qualified Codes: N18.2 - Chronic kidney disease, stage 2 (mild) (7) Poor venous access Status: Chronic Clinical Quality Measures DVT/VTE Risk/Contraindication: Risk Factor Score Per Nursin RFS Level Per Nursing on Admit: 3=High BROOKE ISRAEL DO Sep 13, 2018 11:56
[2018-09-13] MEDS ORDERED: ARTIFICIAL TEARS OINT (LACRI-LUBE) 3.5 GM TUBE OU PRN (12:15)
[2018-09-13] MEDS: D5 1/2 NS W/KCL 20 MEQ/L 1,000 ML IV SCH (13:43)
[2018-09-13] MEDS: ARTIFICAL TEARS 0.4 ML UNIT DOSE (REFRESH PLUS) OU PRN ×2 (13:50→21:25)
[2018-09-13 16:00] VITALS: BP 117/82
[2018-09-13] MEDS: MONTELUKAST 10 MG (SINGULAIR) TAB PO SCH (21:15)
[2018-09-14] VITALS: BP 131/71
[2018-09-14] MEDS: D5 1/2 NS W/KCL 20 MEQ/L 1,000 ML IV SCH (04:06)
[2018-09-14] MEDS: ONDANSETRON 4 MG/2 ML (SDV) Z0FRAN IV PRN (06:15)
[2018-09-14] MEDS: LEVOFLOXACIN 250 MG/D5W 50 ML (PRE-MIX) IV SCH (06:15)
[2018-09-14] MEDS: HYOSCYAMINE 0.125 MG (LEVSIN) TAB SL PRN (06:15)
[2018-09-14] MEDS: KETOROLAC 15 MG/ML VIAL IV PRN (06:15)
[2018-09-14 06:27] LABS: BASOPHILS % (AUTO) 1 % (0-10); EOSINOPHILS # (AUTO) 0.2 10^3/uL (0.0-0.3); EOSINOPHILS % (AUTO) 4 % (0-10); HEMATOCRIT 32 % (35-52); LYMPHOCYTES # (AUTO) 1.4 X 10^3 (1.0-4.0); LYMPHOCYTES % (AUTO) 21 % (12-44); MEAN CORPUSCULAR HEMOGLOBIN 30 PG (25-34); MEAN CORPUSCULAR HGB CONC 31 G/DL (32-36); MEAN CORPUSCULAR VOLUME 97 FL (80-99); MONOCYTES # (AUTO) 0.7 X 10^3 (0.0-1.0); MONOCYTES % (AUTO) 11 % (0-12); NEUTROPHILS # (AUTO) 4.1 X 10^3 (1.8-7.8); NEUTROPHILS % (AUTO) 64 % (42-75); PLATELET COUNT 168 10^3/uL (130-400); RED CELL DISTRIBUTION WIDTH 14.2 % (10.0-14.5); WHITE BLOOD COUNT 6.5 10^3/uL (4.3-11.0)
[2018-09-14 07:12] LABS: BILIRUBIN,TOTAL 0.2 MG/DL (0.1-1.0); CALCIUM 8.7 MG/DL (8.5-10.1); CREATININE SERUM 1.44 MG/DL (0.60-1.30); POTASSIUM 4.4 MMOL/L (3.6-5.0); TOTAL PROTEIN 5.7 GM/DL (6.4-8.2)
[2018-09-14 07:33] VITALS: BP 131/64
[2018-09-14] MEDS: ADVAIR HFA 115/21 MCG INHALER 8 GM IH SCH (07:36)
[2018-09-14] MEDS: UMECLIDINIUM BROMIDE (INCRUSE ELLIPTA) 7'S IH SCH (07:36)
[2018-09-14] MEDS ORDERED: LEVO500T2 PO (09:26)
--- NOTE | 2018-09-14 09:28 | Discharge Inst-Simple/Standard ---
Discharge Inst-Standard Discharge Medications New, Converted or Re-Newed RX: Transmitted to Pharmacy Patient Instructions/Follow Up Plan of Care/Instructions/FU: Follow up with you primary care provider within the next week. Activity as Tolerated: Yes Discharge Diet: Regular Diet Other Inst to Patient Follow up Appt: Make appointment for 1 week with you primary care provider. Symptoms to Report: Appetite Changes, Extremity Discoloration, Numbness/Tingling, Swelling Increased , Bleeding Excessive, Eyesight Changes, Pain Increased, Urine Color Change, Constipation(Persistent), Fever over 101 degree F, Pain/Pressure in chest, Urinating Difficulty, Cough Up/Vomit Blood, Heart Beat Irreg/Pounding, Pain/ Pressure in jaw, Vaginal Bleeding Increase, Cramps in feet or legs, Lightheadedness, Pain/Pressure in shoulder, Diarrhea(Persistent), Memory Changes Suddenly, Questions/Concerns, Weight gain consecutive days, Dizziness/ Fainting, Nausea/Vomiting, Shortness of Breath, Weight gain over 2 pounds If questions or concerns contact your physician Or seek help at emergency department. ZULLY GOODRICH DO Sep 14, 2018 09:28
--- NOTE | 2018-09-14 09:33 | Progress Note ---
Subjective Date Seen by a Provider: Sep 14, 2018 Time Seen by a Provider: 09:30 Subjective/Events-last exam feeling better. tolerating diet. not having diarrhea. not having any abdominal pain. denies n/v fever sweats chills shortness of breath or chest pain. wanting to go home. Objective Exam Vital Signs Date Time Temp Pulse Resp B/P (MAP) Pulse Ox O2 Delivery O2 Flow Rate FiO2 09/14/18 07:36 95 Room Air 09/14/18 07:33 97.7 52 18 131/64 (86) 96 Room Air 09/14/18 00:00 97.4 69 18 131/71 (91) 97 Room Air 09/13/18 20:00 Room Air 09/13/18 16:00 97.0 50 24 117/82 (94) 98 Room Air I & O 09/14/18 07:00 Intake Total 3290 ml Balance 3290 ml Capillary Refill : Less Than 3 Seconds General Appearance: No Apparent Distress, WD/WN HEENT: PERRL/EOMI, Normal ENT Inspection Neck: Full Range of Motion, Normal Inspection, Non Tender, Supple Respiratory: Chest Non Tender, No Accessory Muscle Use, No Respiratory Distress Cardiovascular: Regular Rate, Rhythm, No Murmur Gastrointestinal: non tender, soft Extremity: Normal Inspection, Normal Range of Motion Neurologic/Psychiatric: Alert, Oriented x3 Skin: Normal Color, Warm/Dry Lymphatic: No Adenopathy Results Lab Laboratory Tests 09/14/18 06:20: White Blood Count 6.5, Red Blood Count 3.31L, Hemoglobin 10.0L, Hematocrit 32L, Mean Corpuscular Volume 97, Mean Corpuscular Hemoglobin 30, Mean Corpuscular Hemoglobin Concent 31L, Red Cell Distribution Width 14.2, Platelet Count 168, Mean Platelet Volume 11.0H, Neutrophils (%) (Auto) 64, Lymphocytes (%) (Auto) 21 , Monocytes (%) (Auto) 11, Eosinophils (%) (Auto) 4, Basophils (%) (Auto) 1, Neutrophils # (Auto) 4.1, Lymphocytes # (Auto) 1.4, Monocytes # (Auto) 0.7, Eosinophils # (Auto) 0.2, Basophils # (Auto) 0.0, Sodium Level 141, Potassium Level 4.4, Chloride Level 112H, Carbon Dioxide Level 25, Anion Gap 4L, Blood Urea Nitrogen 17, Creatinine 1.44H, Estimat Glomerular Filtration Rate 37, BUN/ Creatinine Ratio 12, Glucose Level 99, Calcium Level 8.7, Corrected Calcium 9.5 , Total Bilirubin 0.2, Aspartate Amino Transf (AST/SGOT) 26, Alanine Aminotransferase (ALT/SGPT) 27, Alkaline Phosphatase 99, Total Protein 5.7L, Albumin 3.0L Microbiology 09/09/18 Blood Culture - Preliminary, Resulted No growth 09/10/18 C. difficile GDH Antigen & Toxins - Final, Complete 09/09/18 Urine Culture - Final, Complete Escherichia coli Assessment/Plan Assessment/Plan Assessment/Plan A 63 year old female with gastroenteritis, UTI, sepsis, diarrhea, nausea vomiting feeling better today wanting to go home okay to dc home will keep on 2 more days of Levaquin F/u with her pcp in 1 week. Any issues be seen at that time. Clinical Quality Measures DVT/VTE Risk/Contraindication: Risk Factor Score Per Nursin RFS Level Per Nursing on Admit: 3=High ZULLY GOODRICH DO Sep 14, 2018 09:33
[2018-09-14] MEDS: toPIRamate 100 MG (TOPAMAX) TAB PO SCH (09:39)
[2018-09-14] MEDS: LEVOTHYROXINE 75 MCG (LEVOTHROID) TABLET PO SCH (09:57)
[2018-09-14] MEDS: PANTOPRAZOLE 40 MG (PROTONIX) VIAL IV SCH (09:57)
[2018-09-14] MEDS: LORATADINE (CLARITIN) 10 MG TAB PO SCH (09:57)
[2018-09-14] MEDS: ACYCLOVIR 400 MG TABLET (ZOVIRAX) PO SCH (09:57)
[2018-09-14] MEDS: ASPIRIN 81 MG CHEW (CHILDREN'S ASA) PO SCH (09:57)
[2018-09-14] MEDS: GABAPENTIN 600 MG (NEURONTIN) TAB PO SCH (09:57)
[2018-09-14] MEDS: CHOLESTYRAMINE 4 GM (QUESTRAN LITE, PREVALITE) PKT PO SCH (10:01)
[2018-09-14] MEDS ORDERED: ONDN4T PO (10:32)
--- NOTE | 2018-09-14 11:12 | NUR ---
Pt discharged home today. will be primary caregiver. Pt and state they have no post=hospital needs.
--- NOTE | 2018-09-14 11:42 | NUR ---
RT IJ TL REMOVED. SITE CLEAR, NO BLEEDING. RX AND INST AND VERBALIZED UNDERSTANDING.
--- NOTE | 2018-09-14 11:52 | NUR ---
DC'D PER WC WITH SPOUSE.
== END 2018-09-14 11:53 | disposition home or self-care (01) | DRG 872 ==
LOC: EDUNIT# 23:32 → ER 23:35 → 4TH 09-09 04:00 → OBSVTOIN 09-12 11:17
PROVIDERS: ADMIT Surgery; ATTEND Internal Medicine
PROC: 02HV33Z Insertion of Infusion Device into Superior Vena Cava, Percutaneous Approach (ICD-10-PCS; principal; 2018-09-09)
DX: A41.51 Sepsis due to Escherichia coli [E. coli] (principal); N30.00 Acute cystitis without hematuria; K52.9 Noninfective gastroenteritis and colitis, unspecified; E86.0 Dehydration; E83.42 Hypomagnesemia; D47.2 Monoclonal gammopathy; J44.9 Chronic obstructive pulmonary disease, unspecified; E78.00 Pure hypercholesterolemia, unspecified; I12.9 Hypertensive chronic kidney disease with stage 1 through stage 4 chronic kidney disease, or unspecified chronic kidney disease; N18.2 Chronic kidney disease, stage 2 (mild); G40.909 Epilepsy, unspecified, not intractable, without status epilepticus; K21.9 Gastro-esophageal reflux disease without esophagitis; F41.9 Anxiety disorder, unspecified; E03.9 Hypothyroidism, unspecified; M19.91 Primary osteoarthritis, unspecified site; I87.2 Venous insufficiency (chronic) (peripheral); Z85.72 Personal history of non-Hodgkin lymphomas; Z98.84 Bariatric surgery status; Z87.891 Personal history of nicotine dependence; Z88.0 Allergy status to penicillin; Z88.1 Allergy status to other antibiotic agents; Z88.2 Allergy status to sulfonamides
CPT/HCPCS: 36415; 74022; 74176; 80053; 81000; 82150; 82962; 83605; 83690; 83735; 85007; 85025; 85027; 87015; 87040; 87045; 87046; 87077; 87088; 87186; 87324; 87449; 87899; 93041; 94640; 94760

== ENCOUNTER 2018-09-24 12:12 | Outpatient (CLI) | payer BC ==
[~2018-09-24] VITALS: Ht 160 cm; Wt 113.5 kg
[~2018-09-24 12:12] MED LIST changes: +ASCO500T75 PO; +CETI10TA17 PO; +FLUT1DIS26 INH; +FURO40TA4 PO; +GBPN600T PO; +LEVO500T2 PO; +LEVO75TA6 PO; +ONDN4T PO; +RT-ALBUINH INH; +TIOT4MIS2 INH; +TOPI100T11 PO; +TRAM50TA2 PO
== END 2018-09-24 15:21 ==
LOC: PREOP 12:12
PROVIDERS: ATTEND Surgery
DX: Z01.818 Encounter for other preprocedural examination (principal)

== ENCOUNTER 2018-09-28 09:44 | Day surgery (SDC) | payer BC ==
[~2018-09-28] VITALS: Ht 160 cm; Wt 113.5 kg
[2018-09-28] MEDS ORDERED: LACTATED RINGERS 1,000 ML IV PRN (10:00)
[2018-09-28] MEDS ORDERED: CLINDAMYCIN 600 MG/50 ML IVPB 50 ML IV ONE ×2 (10:00→10:26)
[2018-09-28] MEDS ORDERED: BUP/EPI 0.5% 1:200,000 (SENSORCAINE) 30 ML VIAL ONE (10:06)
[2018-09-28] MEDS ORDERED: LIDOCAINE 1% INJ 20 ML 20 ML VIAL ONE (10:06)
[2018-09-28 10:15] VITALS: BP 114/52
[2018-09-28] MEDS ORDERED: HEParin (CENTRAL IV FLUSH) 500 UNIT/5 ML SYR ONE (10:21)
[2018-09-28] MEDS ORDERED: 0.9% SODIUM CHLORIDE PF INJ 20 ML VIAL ONE (10:21)
[2018-09-28] MEDS ORDERED: CITRIC ACID/SOB CIT (BICITRA) 30 ML UDC ONE (10:26)
[2018-09-28] MEDS ORDERED: RT-ALBUTEROL SULF 2.5 MG/3 ML PRE-MIX VIAL INH ONE (10:30)
[2018-09-28] MEDS ORDERED: CITRIC ACID/SOB CIT (BICITRA) 30 ML UDC PO ONE (10:30)
--- NOTE | 2018-09-28 10:55 | Progress Note-Pre Operative ---
Pre-Operative Progress Note H&P Reviewed The H&P was reviewed, patient examined and no changes noted. Time Seen by Provider: 10:51 Date H&P Reviewed: Sep 28, 2018 Time H&P Reviewed: 10:52 Pre-Operative Diagnosis: Venous Insufficiency NINO SAM DO Sep 28, 2018 10:55
[2018-09-28] MEDS ORDERED: PROPOFOL INJECTION 50 ML IV ONE (11:10)
[2018-09-28] MEDS ORDERED: MIDAZOLAM 2 MG/2 ML (VERSED) VIAL ONE (11:10)
[2018-09-28] MEDS ORDERED: fentaNYL INJECTION 100 MCG/2 ML AMP ONE (11:11)
--- NOTE | 2018-09-28 11:49 | Progress Note-Post Operative ---
Post-Operative Progess Note Surgeon (s)/Retail Greeter (s) Surgeon NINO SAM DO Retail Greeter: none Pre-Operative Diagnosis Venous Insufficiency Post-Operative Diagnosis Same Procedure & Operative Findings Date of Procedure 09/28/18 Procedure Performed/Findings Adithya-cath placement Anesthesia Type IV sedation by CAREER DEVELOPMENT FACILITATOR Estimated Blood Loss Estimated blood loss (mL): scant Specimens/Packing Specimens Removed none NINO SAM DO Sep 28, 2018 11:49
[2018-09-28] MEDS ORDERED: ACHD5005 PO (11:50)
--- NOTE | 2018-09-28 11:51 | Discharge Inst-Surgical ---
Discharge Inst-Surgical Depart Medication/Instructions New, Converted or Re-Newed RX: RX Given to Pt/Family Patient Instructions Follow up Appt: Make appointment for 1 week. [phone] Instructions: No strenuous activity. May shower in 24 hours, no tub bath or soaking. Use incentive spirometer at home as directed. No Smoking Skin/Wound Care: May remove bandages in am. You need to leave the Dermabond on incision it will fall off on it's own. Symptoms to Report: Appetite Changes, Extremity Discoloration, Numbness/Tingling, Swelling Increased , Bleeding Excessive, Eyesight Changes, Pain Increased, Urine Color Change, Constipation(Persistent), Fever over 101 degree F, Pain/Pressure in chest, Urinating Difficulty, Cough Up/Vomit Blood, Heart Beat Irreg/Pounding, Pain/ Pressure in jaw, Cramps in feet or legs, Lightheadedness, Pain/Pressure in shoulder, Diarrhea(Persistent), Memory Changes Suddenly, Questions/Concerns, Weight gain consecutive days, Dizziness/Fainting, Nausea/Vomiting, Shortness of Breath, Weight gain over 2 pounds If questions or concerns contact your physician Or seek help at emergency department. Activity Activity as Tolerated: Yes Activity Instructions: Avoid Stress to Incision Driving Instructions: No Driving/Refer to Dr. Arce Discharge Diet: No Restrictions Diet After 24 Hours: Clear Liquid if Nauseous If Any Problems/Questions/Issu: Contact Your Physician, Go to Emergency Room Skin/Wound Care Infection Signs and Symptoms: Increased Redness, Foul Odor of Wound, Increased Drainage, Skin Itchy or Has a Rash, Increased Swelling, Temperature Above 101 F Bathing Instructions: Shower Stitches/Dillan/Dermabond Dis: Dermabond Ice Pack: Ice On and Off Site NINO SAM DO Sep 28, 2018 11:51
[2018-09-28 12:20] VITALS: BP 114/52
[2018-09-28 12:50] VITALS: BP 125/65
--- NOTE | 2018-09-28 14:14 | Diagnostic Imaging Report ---
INDICATION: Fluoroscopy for Groshong catheter placement. FINDINGS: Fluoroscopy was provided for Dr. Gomez during Groshong catheter placement. 4 seconds of fluoroscopy was utilized. The left subclavian line appears to have the tip overlying the SVC. IMPRESSION: Fluoroscopy during Groshong catheter placement. Dictated by: Dictated on workstation # [id number]
--- NOTE | 2018-09-28 14:14 | Anesthesia-General Post-Op ---
MAC Patient Condition Mental Status/LOC: Same as Preop Cardiovascular: Satisfactory Nausea/Vomiting: Absent Respiratory: Satisfactory Pain: Controlled Complications: Absent Post Op Complications Complications None Follow Up Care/Instructions Patient Instructions None needed. Anesthesiology Discharge Order Discharge Order Patient is doing well, no complaints, stable vital signs, no apparent adverse anesthesia problems. No complications reported per nursing. RASHID DUEÑAS CRNA Sep 28, 2018 14:14
--- NOTE | 2018-09-29 04:14 | OPERATIVE REPORT ---
DATE OF SERVICE: 09/28/2018 PREOPERATIVE DIAGNOSIS: Venous insufficiency. POSTOPERATIVE DIAGNOSIS: Venous insufficiency. PROCEDURE: Port-A-Cath placed left anterior chest wall, left subclavian vein. SURGEON: Bj Gomez DO. CSO: None. ANESTHESIA: IV sedation by the FIELD CARE COORDINATOR. BLOOD LOSS: Scant. SPECIMENS: None. FLUIDS: Per anesthesia. POSTOPERATIVE CONDITION: Stable. INDICATION FOR PROCEDURE: The patient is a 63-year-old female who has venous insufficiency, need [facility] IV access, need a port placed. FINDINGS: The patient had a Port-A-Cath placed left anterior chest wall, left subclavian vein. PROCEDURE NOTE: After informed consent was obtained, the patient was brought to the operating room, placed on table in supine position. She was sterilely prepped and draped in normal fashion. Local lidocaine was used to infiltrate the skin in the left anterior chest wall and then towards the left clavicle into the subclavian vein. Then, an 18-gauge fine needle was advanced using negative inspiration. The patient was in Trendelenburg position. I cannulated the subclavian vein on the first attempt. Good flash of blood, removed the syringe and placed a guidewire down the needle using the Seldinger technique, it went in easily, checked fluoroscopy, it was in good position, removed the needle and then made a stab incision at the guidewire with #11 blade and then made an incision in the left anterior chest wall with a #11 blade, carried down through the skin into subcutaneous tissue, then deepened down to subcutaneous tissue with Bovie electrocautery then down to the pectoralis major muscle and using blunt dissection. At this point, then over the guidewire, placed a dilator using Seldinger technique, it went in easily, checked with fluoroscopy, it was in good position, removed the inner portion of the dilator as well as the guidewire and then placed the catheter down the dilator using Seldinger technique, it went in easily. Checked position, it was in good position, then attached the catheter to the Port-A-Cath and then placed a locking mechanism and then accessed the Port-A-Cath with a Ryder needle. Good flash of blood and easily flushed with saline, then aspirated again and then good flash of blood and then flushed with heparin. A 3-0 Prolene was used and then sutured into place down to the chest wall, placed in the pocket previously created and at this point, we checked with fluoroscopy. No kinks at the Port-A-Cath and catheter looked good. Closed the subcutaneous tissue with a 3-0 Prolene #2 interrupted suture, then closed the skin with 4-0 undyed Monocryl, 3 interrupted subcuticular stitches. Area was cleaned and dried, Dermabond placed over this incision as well as a small stab incision and let it dry and then Band-Aids placed. The patient transferred to recovery room in stable condition. Sponge and needle count correct at the end of the case. Job ID: [id number] DocumentID: [id number] Dictated Date: 09/28/2018 16:40:16 Divider Operator Date: 09/29/2018 04:13:35 Dictated By: BJ GOMEZ DO
== END 2018-09-28 13:15 | disposition home or self-care (01) ==
LOC: SDC 09:44
PROVIDERS: ATTEND Surgery
DX: I87.2 Venous insufficiency (chronic) (peripheral) (principal); Z11.2 Encounter for screening for other bacterial diseases; J44.9 Chronic obstructive pulmonary disease, unspecified; E03.9 Hypothyroidism, unspecified; E78.5 Hyperlipidemia, unspecified; K21.9 Gastro-esophageal reflux disease without esophagitis; N18.9 Chronic kidney disease, unspecified; Z87.891 Personal history of nicotine dependence; Z88.0 Allergy status to penicillin; Z88.1 Allergy status to other antibiotic agents; Z88.2 Allergy status to sulfonamides; Z79.82 Long term (current) use of aspirin; Z79.899 Other long term (current) drug therapy
CPT/HCPCS: 87081; 94640

== ENCOUNTER → 2018-10-30 | Outpatient (CLI) | payer BC, OTHER ==
[~2018-10-30] VITALS: Ht 160 cm; Wt 113.5 kg
[~2018-10-30] MED LIST changes: +ACHD5005 PO
[2018-10-30 15:46] VITALS: BP 124/62
[2018-10-30 15:54] LABS: ALBUMIN 3.7 GM/DL (3.2-4.5); BILIRUBIN,TOTAL 0.4 MG/DL (0.1-1.0); CALCIUM 9.5 MG/DL (8.5-10.1); CREATININE SERUM 1.34 MG/DL (0.60-1.30); POTASSIUM 4.3 MMOL/L (3.6-5.0); TOTAL PROTEIN 6.8 GM/DL (6.4-8.2)
== END ==
LOC: LAB 14:06
PROVIDERS: ATTEND Nurse Practitioner Primary Care
DX: D47.2 Monoclonal gammopathy (principal); N18.9 Chronic kidney disease, unspecified; I87.8 Other specified disorders of veins
CPT/HCPCS: 36415; 36591; 80053; 80061; 84443

== ENCOUNTER → 2018-10-30 | Outpatient (CLI) | payer BC, OTHER ==
[2018-10-30 15:27] LABS: BASOPHILS % (AUTO) 1 % (0-10); EOSINOPHILS # (AUTO) 0.2 10^3/uL (0.0-0.3); EOSINOPHILS % (AUTO) 3 % (0-10); HEMATOCRIT 38 % (35-52); HEMOGLOBIN 12.4 G/DL (11.5-16.0); LYMPHOCYTES # (AUTO) 1.8 X 10^3 (1.0-4.0); LYMPHOCYTES % (AUTO) 28 % (12-44); MEAN CORPUSCULAR HEMOGLOBIN 31 PG (25-34); MEAN CORPUSCULAR HGB CONC 32 G/DL (32-36); MEAN CORPUSCULAR VOLUME 97 FL (80-99); MEAN PLATELET VOLUME 12.2 FL (7.4-10.4); MONOCYTES # (AUTO) 0.6 X 10^3 (0.0-1.0); MONOCYTES % (AUTO) 9 % (0-12); NEUTROPHILS # (AUTO) 3.8 X 10^3 (1.8-7.8); NEUTROPHILS % (AUTO) 59 % (42-75); PLATELET COUNT 185 10^3/uL (130-400); RED CELL DISTRIBUTION WIDTH 13.1 % (10.0-14.5); WHITE BLOOD COUNT 6.4 10^3/uL (4.3-11.0)
== END ==
LOC: SDC 14:08
PROVIDERS: ATTEND Internal Medicine Hematology & Oncology
DX: D47.2 Monoclonal gammopathy (principal); N18.9 Chronic kidney disease, unspecified
CPT/HCPCS: 36415; 82784; 83883; 85025

== ENCOUNTER 2018-11-10 13:31 | Outpatient (RCR) | payer BC | END 2019-02-08 | disposition home or self-care (01) | LOC: ONC 13:31 | PROVIDERS: ATTEND Internal Medicine Hematology & Oncology | DX: D47.2 Monoclonal gammopathy (principal); N18.9 Chronic kidney disease, unspecified; E03.9 Hypothyroidism, unspecified; J44.9 Chronic obstructive pulmonary disease, unspecified; E78.5 Hyperlipidemia, unspecified; K21.9 Gastro-esophageal reflux disease without esophagitis; Z98.84 Bariatric surgery status; Z87.891 Personal history of nicotine dependence | CPT/HCPCS: 99213 ==

== ENCOUNTER → 2018-12-15 | Outpatient (CLI) | payer BC ==
[~2018-12-15] VITALS: Ht 160 cm; Wt 113.5 kg
[2018-12-15 14:36] VITALS: BP 136/65
[2018-12-15 15:17] LABS: ALBUMIN 3.8 GM/DL (3.2-4.5); BILIRUBIN,TOTAL 0.2 MG/DL (0.1-1.0); CALCIUM 9.3 MG/DL (8.5-10.1); CREATININE SERUM 1.39 MG/DL (0.60-1.30); MAGNESIUM 2.1 MG/DL (1.8-2.4); POTASSIUM 4.5 MMOL/L (3.6-5.0); TOTAL PROTEIN 6.9 GM/DL (6.4-8.2)
== END ==
LOC: SDC 14:24
PROVIDERS: ATTEND Nurse Practitioner Primary Care
DX: E83.42 Hypomagnesemia (principal); R25.2 Cramp and spasm
CPT/HCPCS: 36415; 36591; 80053; 83735

== ENCOUNTER 2019-01-25 15:23 | Outpatient (RCR) | payer BC | END 2019-01-29 16:05 | disposition home or self-care (01) | PROVIDERS: ATTEND Nurse Practitioner Primary Care | DX: M54.5 Low back pain (principal) ==

== ENCOUNTER 2019-02-02 12:02 | Outpatient (RCR) | payer BC ==
[2018-12-03 16:28] VITALS: BP 140/77
[~2019-02-02] VITALS: Ht 160 cm; Wt 113.5 kg
[2019-02-02 12:40] VITALS: BP 112/53
== END 2019-03-03 | disposition home or self-care (01) ==
LOC: SDC 12:02
PROVIDERS: ATTEND Surgery
DX: Z45.2 Encounter for adjustment and management of vascular access device (principal)
CPT/HCPCS: 96523

== ENCOUNTER → 2019-03-09 | Outpatient (CLI) | payer BC ==
[~2019-03-09] VITALS: Ht 160 cm; Wt 113.5 kg
[2019-03-09 15:25] VITALS: BP 144/63
== END ==
LOC: SDC 15:16
PROVIDERS: ATTEND Nurse Practitioner Primary Care
DX: Z45.2 Encounter for adjustment and management of vascular access device (principal); Z95.828 Presence of other vascular implants and grafts
CPT/HCPCS: 96523

== ENCOUNTER → 2019-04-20 | Outpatient (CLI) | payer BC ==
--- NOTE | 2019-04-20 15:17 | Diagnostic Imaging Report ---
INDICATION: History of right breast cysts. This study is performed for followup. COMPARISON: Correlation is made with the right breast ultrasound from 01/14/2018 and 07/03/2017. FINDINGS: The previously noted cyst at the 2:30 location 10 cm from the nipple is again noted measuring 1.9 x 1.3 x 1.2 cm. This compares with 2.0 x 1.5 x 1.2 cm on the prior exam. This has been stable when compared with the mammogram dating back to 2016. This again does show slight mural nodularity. The 3:30 location 6 cm from the nipple also demonstrates a simple appearing cyst measuring 7 mm x 7 mm x 7 mm. This is stable to perhaps slightly smaller when compared to the prior exam from 2016 when the lesion measured approximately 9 mm x 8 mm. Two small cysts are identified at the 6 o'clock location, 5 cm from the nipple. These measure 7 mm and 5 mm respectively. These appear unchanged. No new mass is seen. IMPRESSION: Stable right breast cysts when compared with the exam from June 2017. ACR BI-RADS Category 2: Benign findings. Dictated by: Dictated on workstation # [id number]
== END ==
LOC: RAD 13:10
PROVIDERS: ATTEND Nurse Practitioner Primary Care
DX: N60.01 Solitary cyst of right breast (principal); D47.2 Monoclonal gammopathy; Z95.828 Presence of other vascular implants and grafts

== ENCOUNTER → 2019-04-29 | Outpatient (CLI) | payer BC ==
[2019-04-29 13:55] LABS: BASOPHILS % (AUTO) 0 % (0-10); EOSINOPHILS # (AUTO) 0.4 10^3/uL (0.0-0.3); EOSINOPHILS % (AUTO) 5 % (0-10); HEMATOCRIT 38 % (35-52); HEMOGLOBIN 12.1 G/DL (11.5-16.0); LYMPHOCYTES # (AUTO) 1.7 X 10^3 (1.0-4.0); LYMPHOCYTES % (AUTO) 21 % (12-44); MEAN CORPUSCULAR HEMOGLOBIN 30 PG (25-34); MEAN CORPUSCULAR HGB CONC 32 G/DL (32-36); MEAN CORPUSCULAR VOLUME 97 FL (80-99); MEAN PLATELET VOLUME 11.8 FL (7.4-10.4); MONOCYTES # (AUTO) 0.9 X 10^3 (0.0-1.0); MONOCYTES % (AUTO) 11 % (0-12); NEUTROPHILS # (AUTO) 4.8 X 10^3 (1.8-7.8); NEUTROPHILS % (AUTO) 62 % (42-75); PLATELET COUNT 182 10^3/uL (130-400); RED CELL DISTRIBUTION WIDTH 13.1 % (10.0-14.5); WHITE BLOOD COUNT 7.8 10^3/uL (4.3-11.0)
[2019-04-29 14:15] LABS: ALBUMIN 3.8 GM/DL (3.2-4.5); BILIRUBIN,TOTAL 0.3 MG/DL (0.1-1.0); CALCIUM 9.1 MG/DL (8.5-10.1); CREATININE SERUM 1.25 MG/DL (0.60-1.30); POTASSIUM 4.1 MMOL/L (3.6-5.0); TOTAL PROTEIN 6.9 GM/DL (6.4-8.2)
[2019-04-29 14:47] VITALS: BP 133/58
== END ==
LOC: SDC 12:57
PROVIDERS: ATTEND Internal Medicine Hematology & Oncology
DX: D47.2 Monoclonal gammopathy (principal); N18.4 Chronic kidney disease, stage 4 (severe)
CPT/HCPCS: 36415; 36591; 80053; 82784; 83883; 85025

== ENCOUNTER → 2019-05-11 | Outpatient (CLI) | payer BC | LOC: EDSTATUS 02-09 12:43 → ONC 12:47 | PROVIDERS: ATTEND Internal Medicine Hematology & Oncology | DX: D47.2 Monoclonal gammopathy (principal); N18.4 Chronic kidney disease, stage 4 (severe) | CPT/HCPCS: 99213 ==

== ENCOUNTER 2019-07-13 13:55 | Outpatient (RCR) | payer BC ==
[2019-07-05 13:45] VITALS: BP 132/65
[~2019-07-13 13:55] MED LIST changes: -MONT10TA24 PO; +MONT10TA26 PO; +SIMV40TA25 PO; -SIMV40TA4 PO; -TRAM50TA2 PO; +TRM50T PO
[2019-07-13 14:20] VITALS: BP 141/70
--- NOTE | 2019-08-16 14:15 | NUR ---
PORT FLUSHED WITH LAB DRAW. DOCUMENTATION ON ACCOUNT #[id number]
== END 2019-10-03 | disposition home or self-care (01) ==
LOC: SDC 13:55
PROVIDERS: ATTEND Nurse Practitioner Primary Care
DX: Z45.2 Encounter for adjustment and management of vascular access device (principal)
CPT/HCPCS: 96523

== ENCOUNTER 2019-08-16 13:52 | Outpatient (CLI) | payer OTHER ==
[~2019-08-16 13:52] MED LIST changes: +MONT10TA24 PO; -MONT10TA26 PO
[2019-08-16 14:32] VITALS: BP 121/57
[2019-08-16 15:12] LABS: ALBUMIN 3.6 GM/DL (3.2-4.5); BILIRUBIN,TOTAL 0.3 MG/DL (0.1-1.0); CALCIUM 8.2 MG/DL (8.5-10.1); CREATININE SERUM 1.26 MG/DL (0.60-1.30); POTASSIUM 3.6 MMOL/L (3.6-5.0); TOTAL PROTEIN 6.4 GM/DL (6.4-8.2)
== END 2019-08-16 14:32 | disposition home or self-care (01) ==
LOC: SDC 13:52
PROVIDERS: ATTEND Nurse Practitioner Primary Care
DX: N18.3 Chronic kidney disease, stage 3 (moderate) (principal); E03.9 Hypothyroidism, unspecified
CPT/HCPCS: 36415; 36591; 80053; 84443

== ENCOUNTER 2019-10-05 09:31 | Outpatient (RCR) | payer OTHER ==
[~2019-10-05 09:31] MED LIST changes: -MONT10TA24 PO; +MONT10TA26 PO
[2019-10-05] MEDS ORDERED: CATHETER FLUSH 10 ML SYR IV PRN (09:45)
[2019-10-05 09:57] VITALS: BP 141/73
== END 2020-01-03 | disposition home or self-care (01) ==
LOC: SDC 09:31
PROVIDERS: ATTEND Nurse Practitioner Primary Care
DX: Z45.2 Encounter for adjustment and management of vascular access device (principal); Z95.828 Presence of other vascular implants and grafts
CPT/HCPCS: 96523

== ENCOUNTER 2019-10-12 14:45 | Outpatient (CLI) | payer OTHER ==
[2019-10-12 15:12] VITALS: BP 0/0
[2019-10-12 15:39] LABS: BASOPHILS % (AUTO) 0 % (0-10); EOSINOPHILS # (AUTO) 0.2 10^3/uL (0.0-0.3); EOSINOPHILS % (AUTO) 3 % (0-10); HEMATOCRIT 38 % (35-52); LYMPHOCYTES # (AUTO) 1.8 X 10^3 (1.0-4.0); LYMPHOCYTES % (AUTO) 24 % (12-44); MEAN CORPUSCULAR HGB CONC 32 G/DL (32-36); MEAN CORPUSCULAR VOLUME 96 FL (80-99); MEAN PLATELET VOLUME 12.1 FL (7.4-10.4); MONOCYTES # (AUTO) 0.8 X 10^3 (0.0-1.0); MONOCYTES % (AUTO) 10 % (0-12); NEUTROPHILS # (AUTO) 4.7 X 10^3 (1.8-7.8); NEUTROPHILS % (AUTO) 63 % (42-75); PLATELET COUNT 184 10^3/uL (130-400); RED CELL DISTRIBUTION WIDTH 12.4 % (10.0-14.5); WHITE BLOOD COUNT 7.5 10^3/uL (4.3-11.0)
[2019-10-12 15:40] LABS: MEAN CORPUSCULAR HEMOGLOBIN 30 PG (25-34)
[2019-10-12 15:51] LABS: ALBUMIN 3.8 GM/DL (3.2-4.5); BILIRUBIN,TOTAL 0.3 MG/DL (0.1-1.0); CALCIUM 8.2 MG/DL (8.5-10.1); CREATININE SERUM 1.27 MG/DL (0.60-1.30); POTASSIUM 3.9 MMOL/L (3.6-5.0); TOTAL PROTEIN 6.4 GM/DL (6.4-8.2)
== END 2019-10-12 15:12 | disposition home or self-care (01) ==
LOC: SDC 14:45
PROVIDERS: ATTEND Internal Medicine Hematology & Oncology
DX: D47.2 Monoclonal gammopathy (principal); N18.4 Chronic kidney disease, stage 4 (severe)
CPT/HCPCS: 36415; 36591; 80053; 82784; 83883; 85025

== ENCOUNTER → 2019-10-18 | Outpatient (CLI) | payer OTHER | LOC: ONC 11:20 | PROVIDERS: ATTEND Internal Medicine Hematology & Oncology | DX: D47.2 Monoclonal gammopathy (principal); N18.4 Chronic kidney disease, stage 4 (severe); E03.9 Hypothyroidism, unspecified; K21.9 Gastro-esophageal reflux disease without esophagitis; E66.01 Morbid (severe) obesity due to excess calories; J44.9 Chronic obstructive pulmonary disease, unspecified; K90.9 Intestinal malabsorption, unspecified; G47.30 Sleep apnea, unspecified; G90.50 Complex regional pain syndrome I, unspecified; E78.5 Hyperlipidemia, unspecified; M19.90 Unspecified osteoarthritis, unspecified site; Z98.84 Bariatric surgery status; Z87.891 Personal history of nicotine dependence; Z95.828 Presence of other vascular implants and grafts; Z90.710 Acquired absence of both cervix and uterus; Z98.51 Tubal ligation status; Z95.5 Presence of coronary angioplasty implant and graft; Z90.49 Acquired absence of other specified parts of digestive tract; Z98.82 Breast implant status; Z98.890 Other specified postprocedural states | CPT/HCPCS: 99213 ==

== ENCOUNTER 2019-12-22 13:11 | Outpatient (RCR) | payer SELFPAY ==
[2019-12-22 13:32] VITALS: BP 148/73
[2019-12-22] MEDS ORDERED: CATHETER FLUSH 10 ML SYR IV PRN (13:45)
[2020-02-14] MEDS ORDERED: CATHETER FLUSH 10 ML SYR IV PRN (14:15)
== END 2020-03-21 | disposition home or self-care (01) ==
LOC: SDC 13:11
PROVIDERS: ATTEND Family Medicine
DX: Z45.2 Encounter for adjustment and management of vascular access device (principal); Z95.828 Presence of other vascular implants and grafts
CPT/HCPCS: 96523

== ENCOUNTER 2020-02-14 13:15 | Outpatient (RCR) | payer SELFPAY ==
[~2020-02-14 13:15] MED LIST changes: -PANT40TA3 PO; +PANT40TA52 PO
[2020-02-14 13:32] VITALS: BP 142/75
== END 2020-05-14 | disposition home or self-care (01) ==
LOC: SDC 13:15
PROVIDERS: ATTEND Nurse Practitioner Primary Care
DX: Z95.828 Presence of other vascular implants and grafts (principal)
CPT/HCPCS: 96523

== ENCOUNTER 2020-05-15 13:09 | Outpatient (CLI) | payer MEDICARE ==
[~2020-05-15] VITALS: Ht 160 cm; Wt 113.5 kg
[2020-05-15 13:48] VITALS: BP 0/0
[2020-05-15 13:57] LABS: BASOPHILS % (AUTO) 1 % (0-10); EOSINOPHILS # (AUTO) 0.3 10^3/uL (0.0-0.3); EOSINOPHILS % (AUTO) 4 % (0-10); HEMATOCRIT 36 % (35-52); HEMOGLOBIN 11.5 g/dL (11.5-16.0); LYMPHOCYTES # (AUTO) 1.9 10^3/uL (1.0-4.0); LYMPHOCYTES % (AUTO) 24 % (12-44); MEAN CORPUSCULAR HEMOGLOBIN 30 pg (25-34); MEAN CORPUSCULAR HGB CONC 32 g/dL (32-36); MEAN CORPUSCULAR VOLUME 95 fL (80-99); MEAN PLATELET VOLUME 11.5 fL (9.0-12.2); MONOCYTES # (AUTO) 0.7 10^3/uL (0.0-1.0); MONOCYTES % (AUTO) 9 % (0-12); NEUTROPHILS # (AUTO) 4.8 10^3/uL (1.8-7.8); NEUTROPHILS % (AUTO) 62 % (42-75); PLATELET COUNT 169 10^3/uL (130-400); WHITE BLOOD COUNT 7.8 10^3/uL (4.3-11.0)
[2020-05-15 14:18] LABS: ALBUMIN 3.6 GM/DL (3.2-4.5); BILIRUBIN,TOTAL 0.4 MG/DL (0.1-1.0); CALCIUM 7.8 MG/DL (8.5-10.1); CREATININE SERUM 1.24 MG/DL (0.60-1.30); POTASSIUM 3.5 MMOL/L (3.6-5.0); TOTAL PROTEIN 6.6 GM/DL (6.4-8.2)
== END 2020-05-15 13:48 | disposition home or self-care (01) ==
LOC: SDC 13:09
PROVIDERS: ATTEND Internal Medicine Hematology & Oncology
DX: D47.2 Monoclonal gammopathy (principal); N18.9 Chronic kidney disease, unspecified
CPT/HCPCS: 36415; 36591; 80053; 82784; 83883; 85025

== ENCOUNTER 2020-05-24 13:15 | Outpatient (CLI) | payer MEDICARE ==
[~2020-05-24] VITALS: Ht 160 cm; Wt 113.5 kg
[2020-05-24 14:00] VITALS: BP 147/59
[2020-05-24 14:48] LABS: FREE T4 (FREE THYROXINE) 1.1 NG/DL (0.70-1.48)
== END 2020-05-24 14:00 | disposition home or self-care (01) ==
LOC: SDC 13:15
PROVIDERS: ATTEND Internal Medicine
DX: R73.9 Hyperglycemia, unspecified (principal); E03.9 Hypothyroidism, unspecified
CPT/HCPCS: 36415; 36591; 83036; 84439; 84443

== ENCOUNTER 2020-05-30 13:03 | Outpatient (RCR) | payer MEDICARE ==
[~2020-05-30 13:03] MED LIST changes: -MONT10TA26 PO; +MONT10TA97 PO
== END 2020-08-28 | disposition home or self-care (01) ==
LOC: ONC 13:03
PROVIDERS: ATTEND Internal Medicine Hematology & Oncology
DX: D47.2 Monoclonal gammopathy (principal); N18.4 Chronic kidney disease, stage 4 (severe); E66.9 Obesity, unspecified; Z87.891 Personal history of nicotine dependence; Z98.84 Bariatric surgery status
CPT/HCPCS: 99213

== ENCOUNTER → 2020-07-05 | Outpatient (CLI) | payer MEDICARE ==
[~2020-07-05] VITALS: Ht 160 cm; Wt 100.0 kg
[~2020-07-05] MED LIST changes: +CATHETER FLUSH 10 ML SYR IV PRN; +REGADENOSON 0.4 MG/5 ML SYR (LEXISCAN) IV ONE
[2020-07-05 07:25] VITALS: BP 156/73
--- NOTE | 2020-07-05 07:25 | NUR ---
PRESENTS TO AMB SURG FOR PORT ACCESS AND LAB DRAW. PT PREFERENCE TO HAVE PORT ACCESSED ON AMB SURG AND HAS PORT FLUSHED MONTHLY WITH LAB DRAWS PRN ON AMB SURG. PORT ACCESSED WITH 20 G, 1 INCH POWER PORT NEEDLE ACCESS ON FIRST ATTEMPT, STERILE TECHNIQUE. BLOOD DRAWN PER PROTOCOL TO GREEN TOP TUBE FOR ORDERED HEPATIC AND LIPID PANELS. PORT FLUSHED WITH 30 CC NS, DRESSING APPLIED OVER ACCESSED PORT, AND PT TAKEN PER W/C TO NUCLEAR MED FOR SCHEDULED STRESS TEST. REPORT CALLED TO [facility]. PORT WILL BE FLUSHED AND NEEDLE ACCESS REMOVED AFTER USE BY NUCLEAR MED STAFF.
[2020-07-05 08:39] LABS: ALBUMIN 3.7 GM/DL (3.2-4.5); BILIRUBIN,DIRECT 0.1 MG/DL (0.0-0.3); BILIRUBIN,INDIRECT 0.3 MG/DL; BILIRUBIN,TOTAL 0.4 MG/DL (0.1-1.0); TOTAL PROTEIN 6.7 GM/DL (6.4-8.2)
[2020-07-05 09:05] VITALS: BP 164/75
[2020-07-05 09:11] VITALS: BP 161/79
--- NOTE | 2020-07-05 13:19 | Cardiology Stress Test Report ---
Stress Test Report Date of Procedure/Referring: Date of Procedure: Jul 05, 2020 PCP Cesar Yanez MD Admitting Physician Center/[facility] Indications: Chest pain Baseline Heart Rate: 50 Baseline Blood Pressure: Blood Pressure Systolic: 161 Blood Pressure Diastolic: 79 Baseline Vitals Vital Signs Date Time Temp Pulse Resp B/P (MAP) Pulse Ox O2 Delivery O2 Flow Rate FiO2 07/05/20 07:25 36.3 58 18 156/73 (100) 95 Room Air Baseline EKG: Baseline EKG: sinus rhythm Summary After explaining the procedure to the patient, she signed a consent and then brought to the stress nuclear laboratory. Patient received 0.4 mg Lexiscan for stress test, ECG, heart rate and blood pressure were monitored continuously. Resting and stress dose of radio tracer were injected, imaging was acquired and reviewed in short axis, horizontal long axis and vertical long axis views. TID: 1.1 SSS: 3 SDS: 3 EF: 62 1. Patient tolerated Lexiscan well 2. Breast attenuation, typical female pattern, no ischemia or infarction on SPECT images 3. Normal left ventricular size, EF 62 percent CESAR YANEZ MD Jul 05, 2020 13:19
== END ==
LOC: CARD 07:21
PROVIDERS: ATTEND Internal Medicine Cardiovascular Disease
DX: E78.5 Hyperlipidemia, unspecified (principal)
CPT/HCPCS: 78452; 80061; 80076; 93017; A9502; 36415

== ENCOUNTER → 2020-07-06 | Outpatient (CLI) | payer MEDICARE ==
[~2020-07-06] MED LIST changes: -CATHETER FLUSH 10 ML SYR IV PRN; -REGADENOSON 0.4 MG/5 ML SYR (LEXISCAN) IV ONE
== END ==
LOC: CARD 13:40
PROVIDERS: ATTEND Internal Medicine Cardiovascular Disease
DX: E78.5 Hyperlipidemia, unspecified (principal); I51.7 Cardiomegaly
CPT/HCPCS: 93306

== ENCOUNTER 2020-09-25 13:02 | Outpatient (RCR) | payer MEDICARE, OTHER ==
[2020-08-07 13:10] VITALS: BP 113/72
[~2020-09-25] VITALS: Ht 160 cm; Wt 113.5 kg
[~2020-09-25 13:02] MED LIST changes: +MONT10TA32 PO; -MONT10TA97 PO
[2020-09-25 13:20] VITALS: BP 150/70
== END 2020-11-05 | disposition home or self-care (01) ==
LOC: SDC 13:02
PROVIDERS: ATTEND Nurse Practitioner Family
DX: Z45.2 Encounter for adjustment and management of vascular access device (principal); Z95.828 Presence of other vascular implants and grafts
CPT/HCPCS: 96523

== ENCOUNTER → 2020-11-15 | Outpatient (CLI) | payer MEDICARE ==
[~2020-11-15] VITALS: Ht 160 cm; Wt 113.5 kg
[~2020-11-15] MED LIST changes: -ACYC400T PO; +ACYC400T21 PO
[2020-11-15 13:40] VITALS: BP 138/68
[2020-11-15 13:57] LABS: BASOPHILS % (AUTO) 1 % (0-10); EOSINOPHILS # (AUTO) 0.2 10^3/uL (0.0-0.3); EOSINOPHILS % (AUTO) 3 % (0-10); HEMATOCRIT 38 % (35-52); HEMOGLOBIN 12.2 g/dL (11.5-16.0); LYMPHOCYTES # (AUTO) 2.2 10^3/uL (1.0-4.0); LYMPHOCYTES % (AUTO) 26 % (12-44); MEAN CORPUSCULAR HEMOGLOBIN 31 pg (25-34); MEAN CORPUSCULAR HGB CONC 32 g/dL (32-36); MEAN CORPUSCULAR VOLUME 99 fL (80-99); MEAN PLATELET VOLUME 11.2 fL (9.0-12.2); MONOCYTES # (AUTO) 0.7 10^3/uL (0.0-1.0); MONOCYTES % (AUTO) 9 % (0-12); NEUTROPHILS # (AUTO) 5.2 10^3/uL (1.8-7.8); NEUTROPHILS % (AUTO) 62 % (42-75); PLATELET COUNT 194 10^3/uL (130-400); WHITE BLOOD COUNT 8.3 10^3/uL (4.3-11.0)
[2020-11-15 14:20] LABS: ALBUMIN 3.8 GM/DL (3.2-4.5); BILIRUBIN,TOTAL 0.4 MG/DL (0.1-1.0); CALCIUM 8.2 MG/DL (8.5-10.1); CREATININE SERUM 1.2 MG/DL (0.60-1.30); POTASSIUM 3.7 MMOL/L (3.6-5.0); TOTAL PROTEIN 6.6 GM/DL (6.4-8.2)
== END ==
LOC: SDC 12:58
PROVIDERS: ATTEND Nurse Practitioner Adult Health
DX: D47.2 Monoclonal gammopathy (principal)
CPT/HCPCS: 36415; 36591; 80053; 82784; 83883; 85025

== ENCOUNTER → 2020-11-30 | Outpatient (CLI) | payer MEDICARE | LOC: EDSTATUS 08-29 11:32 → ONC 15:01 | PROVIDERS: ATTEND Internal Medicine Hematology & Oncology | DX: D47.2 Monoclonal gammopathy (principal); K21.9 Gastro-esophageal reflux disease without esophagitis; N18.9 Chronic kidney disease, unspecified; E03.9 Hypothyroidism, unspecified; M19.90 Unspecified osteoarthritis, unspecified site; J44.9 Chronic obstructive pulmonary disease, unspecified; E78.5 Hyperlipidemia, unspecified; Z79.82 Long term (current) use of aspirin; Z98.890 Other specified postprocedural states; Z79.899 Other long term (current) drug therapy; Z79.891 Long term (current) use of opiate analgesic | CPT/HCPCS: 99213 ==

== ENCOUNTER 2021-03-21 13:06 | Outpatient (RCR) | payer MEDICARE ==
[2021-02-07 13:30] VITALS: BP 122/81
[~2021-03-21] VITALS: Ht 160 cm; Wt 113.5 kg
[2021-03-21 13:40] VITALS: BP 0/0
== END 2021-05-08 | disposition home or self-care (01) ==
LOC: SDC 13:06
PROVIDERS: ATTEND Internal Medicine
DX: Z45.2 Encounter for adjustment and management of vascular access device (principal); Z95.828 Presence of other vascular implants and grafts
CPT/HCPCS: 96523

== ENCOUNTER → 2021-07-10 | Outpatient (CLI) | payer MEDICARE ==
[~2021-07-10] MED LIST changes: +MONT-40 PO; -MONT10TA32 PO
[2021-07-10 14:30] VITALS: BP 159/77
[2021-07-10 14:47] LABS: BASOPHILS % (AUTO) 0 % (0-10); EOSINOPHILS % (AUTO) 0 % (0-10); HEMATOCRIT 40 % (35-52); HEMOGLOBIN 12.6 g/dL (11.5-16.0); LYMPHOCYTES # (AUTO) 1.1 10^3/uL (1.0-4.0); LYMPHOCYTES % (AUTO) 9 % (12-44); MEAN CORPUSCULAR HEMOGLOBIN 31 pg (25-34); MEAN CORPUSCULAR HGB CONC 32 g/dL (32-36); MEAN CORPUSCULAR VOLUME 97 fL (80-99); MEAN PLATELET VOLUME 11.8 fL (9.0-12.2); MONOCYTES # (AUTO) 0.2 10^3/uL (0.0-1.0); MONOCYTES % (AUTO) 2 % (0-12); NEUTROPHILS % (AUTO) 88 % (42-75); PLATELET COUNT 223 10^3/uL (130-400); WHITE BLOOD COUNT 12.5 10^3/uL (4.3-11.0)
[2021-07-10 15:38] LABS: ALBUMIN 3.5 GM/DL (3.2-4.5); BILIRUBIN,TOTAL 0.3 MG/DL (0.1-1.0); CALCIUM 8.6 MG/DL (8.5-10.1); CREATININE SERUM 1.68 MG/DL (0.60-1.30); FREE T4 (FREE THYROXINE) 1.19 NG/DL (0.70-1.48); POTASSIUM 4.2 MMOL/L (3.6-5.0); TOTAL PROTEIN 6.4 GM/DL (6.4-8.2)
[2021-07-10 15:42] LABS: BAND NEUTROPHILS 1 %; LYMPHOCYTES % (MANUAL) 4 %; MONOCYTES % (MANUAL) 3 %; NEUTROPHILS % (MANUAL) 92 %; RBC MORPH NORMAL
== END ==
LOC: SDC 14:01
PROVIDERS: ATTEND Internal Medicine
DX: Z13.6 Encounter for screening for cardiovascular disorders (principal); D51.9 Vitamin B12 deficiency anemia, unspecified; I10 Essential (primary) hypertension; J44.9 Chronic obstructive pulmonary disease, unspecified; D64.9 Anemia, unspecified; E78.5 Hyperlipidemia, unspecified; R73.9 Hyperglycemia, unspecified
CPT/HCPCS: 36415; 36591; 80053; 80061; 82607; 82728; 83036; 83540; 83550; 84439; 84443; 85007; 85027

== ENCOUNTER 2021-09-03 13:00 | Outpatient (RCR) | payer MEDICARE | END 2021-09-24 | disposition home or self-care (01) | LOC: CARD 13:00 | PROVIDERS: ATTEND Internal Medicine Cardiovascular Disease | DX: I49.9 Cardiac arrhythmia, unspecified (principal) ==

== ENCOUNTER 2021-09-17 14:43 | Outpatient (RCR) | payer MEDICARE ==
[~2021-09-17] VITALS: Ht 160 cm; Wt 113.5 kg
[2021-09-17 14:40] VITALS: BP 142/63
== END 2021-09-24 | disposition home or self-care (01) ==
LOC: SDC 14:43
PROVIDERS: ATTEND Internal Medicine
DX: Z45.2 Encounter for adjustment and management of vascular access device (principal)
CPT/HCPCS: 96523

== ENCOUNTER 2021-10-29 12:50 | Outpatient (CLI) | payer MEDICARE ==
[~2021-10-29] VITALS: Ht 160 cm; Wt 113.5 kg
[2021-10-29 13:27] VITALS: BP 124/59
[2021-10-29 13:57] LABS: ALBUMIN 3.5 GM/DL (3.2-4.5); BILIRUBIN,TOTAL 0.4 MG/DL (0.1-1.0); CALCIUM 8.4 MG/DL (8.5-10.1); CREATININE SERUM 1.34 MG/DL (0.60-1.30); POTASSIUM 3.9 MMOL/L (3.6-5.0); TOTAL PROTEIN 6.3 GM/DL (6.4-8.2)
== END 2021-10-29 13:27 ==
LOC: SDC 12:50
PROVIDERS: ATTEND Physician Assistant
DX: E78.2 Mixed hyperlipidemia (principal)
CPT/HCPCS: 36415; 36591; 80053; 80061

== ENCOUNTER → 2021-11-20 | Outpatient (CLI) | payer MEDICARE ==
[~2021-11-20] VITALS: Ht 160 cm; Wt 101.4 kg
[2021-11-20 13:38] VITALS: BP 133/64
[2021-11-20 13:46] LABS: BASOPHILS % (AUTO) 1 % (0-10); EOSINOPHILS # (AUTO) 0.2 10^3/uL (0.0-0.3); EOSINOPHILS % (AUTO) 4 % (0-10); HEMATOCRIT 37 % (35-52); HEMOGLOBIN 11.4 g/dL (11.5-16.0); LYMPHOCYTES # (AUTO) 2.1 10^3/uL (1.0-4.0); LYMPHOCYTES % (AUTO) 33 % (12-44); MEAN CORPUSCULAR HEMOGLOBIN 31 pg (25-34); MEAN CORPUSCULAR HGB CONC 31 g/dL (32-36); MEAN CORPUSCULAR VOLUME 98 fL (80-99); MEAN PLATELET VOLUME 11.3 fL (9.0-12.2); MONOCYTES # (AUTO) 0.7 10^3/uL (0.0-1.0); MONOCYTES % (AUTO) 11 % (0-12); NEUTROPHILS # (AUTO) 3.2 10^3/uL (1.8-7.8); NEUTROPHILS % (AUTO) 52 % (42-75); PLATELET COUNT 164 10^3/uL (130-400); WHITE BLOOD COUNT 6.3 10^3/uL (4.3-11.0)
[2021-11-20 14:18] LABS: ALBUMIN 3.6 GM/DL (3.2-4.5); BILIRUBIN,TOTAL 0.4 MG/DL (0.1-1.0); CALCIUM 8.7 MG/DL (8.5-10.1); CREATININE SERUM 1.62 MG/DL (0.60-1.30); POTASSIUM 4.3 MMOL/L (3.6-5.0); TOTAL PROTEIN 6.6 GM/DL (6.4-8.2)
== END ==
LOC: SDC 12:59
PROVIDERS: ATTEND Internal Medicine
DX: Z13.6 Encounter for screening for cardiovascular disorders (principal); E03.9 Hypothyroidism, unspecified; I10 Essential (primary) hypertension
CPT/HCPCS: 36415; 36591; 80053; 80061; 84439; 84443; 85025

== ENCOUNTER → 2021-12-25 | Outpatient (CLI) | payer MEDICARE ==
[2021-12-25 13:21] VITALS: BP 133/69
[2021-12-25 13:24] LABS: BASOPHILS # (AUTO) 0.1 10^3/uL (0.0-0.1); BASOPHILS % (AUTO) 1 % (0-10); EOSINOPHILS # (AUTO) 0.2 10^3/uL (0.0-0.3); EOSINOPHILS % (AUTO) 3 % (0-10); HEMATOCRIT 37 % (35-52); HEMOGLOBIN 11.6 g/dL (11.5-16.0); LYMPHOCYTES % (AUTO) 27 % (12-44); MEAN CORPUSCULAR HEMOGLOBIN 31 pg (25-34); MEAN CORPUSCULAR HGB CONC 32 g/dL (32-36); MEAN CORPUSCULAR VOLUME 96 fL (80-99); MEAN PLATELET VOLUME 11.6 fL (9.0-12.2); MONOCYTES # (AUTO) 0.7 10^3/uL (0.0-1.0); MONOCYTES % (AUTO) 9 % (0-12); NEUTROPHILS # (AUTO) 4.5 10^3/uL (1.8-7.8); NEUTROPHILS % (AUTO) 61 % (42-75); PLATELET COUNT 175 10^3/uL (130-400); WHITE BLOOD COUNT 7.4 10^3/uL (4.3-11.0)
[2021-12-25 13:35] LABS: ALBUMIN 3.8 GM/DL (3.2-4.5)
[2021-12-25 13:36] LABS: POTASSIUM 4.3 MMOL/L (3.6-5.0)
[2021-12-25 13:37] LABS: CALCIUM 8.8 MG/DL (8.5-10.1)
[2021-12-25 13:38] LABS: TOTAL PROTEIN 6.5 GM/DL (6.4-8.2)
[2021-12-25 13:40] LABS: BILIRUBIN,TOTAL 0.4 MG/DL (0.1-1.0)
[2021-12-25 13:42] LABS: CREATININE SERUM 1.31 MG/DL (0.60-1.30)
== END ==
LOC: SDC 12:22
PROVIDERS: ATTEND Internal Medicine Hematology & Oncology
DX: D47.2 Monoclonal gammopathy (principal)
CPT/HCPCS: 36415; 36591; 80053; 82784; 83883; 85025

== ENCOUNTER → 2022-01-22 | Outpatient (CLI) | payer MEDICARE ==
[~2022-01-22] VITALS: Ht 160 cm; Wt 101.4 kg
[2022-01-22 13:50] VITALS: BP 131/69
== END ==
LOC: SDC 13:30
PROVIDERS: ATTEND Internal Medicine
DX: I49.9 Cardiac arrhythmia, unspecified (principal)
CPT/HCPCS: 96523

== ENCOUNTER → 2022-01-31 | Outpatient (CLI) | payer MEDICARE | LOC: ONC 09:50 | PROVIDERS: ATTEND Internal Medicine Hematology & Oncology | DX: D47.2 Monoclonal gammopathy (principal); E66.9 Obesity, unspecified; Z98.84 Bariatric surgery status | CPT/HCPCS: 99213 ==

== ENCOUNTER → 2022-04-10 | Outpatient (CLI) | payer MEDICARE ==
[~2022-04-10] VITALS: Wt 101.4 kg
[2022-04-10 14:03] VITALS: BP 137/54
== END ==
LOC: SDC 13:42
PROVIDERS: ATTEND Internal Medicine
DX: Z45.2 Encounter for adjustment and management of vascular access device (principal)
CPT/HCPCS: 96523

== ENCOUNTER → 2022-06-17 | Outpatient (CLI) | payer MEDICARE ==
[~2022-06-17] MED LIST changes: +ALBU8.5H6 INH; -RT-ALBUINH INH
[2022-06-17 12:50] VITALS: BP 0/0
== END ==
LOC: SDC 12:08
PROVIDERS: ATTEND Internal Medicine
DX: Z13.6 Encounter for screening for cardiovascular disorders (principal); E03.9 Hypothyroidism, unspecified; I10 Essential (primary) hypertension
CPT/HCPCS: 36591

== ENCOUNTER → 2022-07-31 | Outpatient (CLI) | payer MEDICARE ==
[2022-07-31 13:30] VITALS: BP 145/59
[2022-07-31 14:07] LABS: ALBUMIN 3.4 GM/DL (3.2-4.5); BILIRUBIN,TOTAL 0.3 MG/DL (0.1-1.0); CALCIUM 7.9 MG/DL (8.5-10.1); CREATININE SERUM 1.24 MG/DL (0.60-1.30); POTASSIUM 3.6 MMOL/L (3.6-5.0); TOTAL PROTEIN 6.4 GM/DL (6.4-8.2)
[2022-07-31 14:33] LABS: FREE T4 (FREE THYROXINE) 0.97 NG/DL (0.70-1.48)
== END ==
LOC: SDC 12:49
PROVIDERS: ATTEND Internal Medicine
DX: Z13.6 Encounter for screening for cardiovascular disorders (principal); I10 Essential (primary) hypertension; E03.9 Hypothyroidism, unspecified
CPT/HCPCS: 36415; 36591; 80053; 82465; 84439; 84443; 84478

== ENCOUNTER → 2023-03-18 | Outpatient (CLI) | payer MEDICARE ==
[2023-03-18 08:39] LABS: BASOPHILS # (AUTO) 0.1 10^3/uL (0.0-0.1); BASOPHILS % (AUTO) 1 % (0-10); EOSINOPHILS # (AUTO) 0.2 10^3/uL (0.0-0.3); EOSINOPHILS % (AUTO) 3 % (0-10); HEMATOCRIT 37 % (35-52); HEMOGLOBIN 11.8 g/dL (11.5-16.0); LYMPHOCYTES # (AUTO) 2.3 10^3/uL (1.0-4.0); LYMPHOCYTES % (AUTO) 31 % (12-44); MEAN CORPUSCULAR HEMOGLOBIN 31 pg (25-34); MEAN CORPUSCULAR HGB CONC 32 g/dL (32-36); MEAN CORPUSCULAR VOLUME 98 fL (80-99); MEAN PLATELET VOLUME 11.1 fL (9.0-12.2); MONOCYTES # (AUTO) 0.6 10^3/uL (0.0-1.0); MONOCYTES % (AUTO) 9 % (0-12); NEUTROPHILS % (AUTO) 56 % (42-75); PLATELET COUNT 185 10^3/uL (130-400); WHITE BLOOD COUNT 7.2 10^3/uL (4.3-11.0)
[2023-03-18 09:57] LABS: ALBUMIN 3.7 GM/DL (3.2-4.5); BILIRUBIN,TOTAL 0.4 MG/DL (0.1-1.0); CALCIUM 8.5 MG/DL (8.5-10.1); CREATININE SERUM 1.51 MG/DL (0.60-1.30); TOTAL PROTEIN 6.5 GM/DL (6.4-8.2)
[2023-03-18 10:19] LABS: FREE T4 (FREE THYROXINE) 1.15 NG/DL (0.70-1.48)
== END ==
LOC: LAB 07:59
PROVIDERS: ATTEND Internal Medicine
DX: Z13.6 Encounter for screening for cardiovascular disorders (principal); E03.9 Hypothyroidism, unspecified; D64.9 Anemia, unspecified; I10 Essential (primary) hypertension
CPT/HCPCS: 36415; 80053; 82465; 82607; 82728; 82746; 83540; 83550; 84439; 84443; 84478; 85025

== ENCOUNTER → 2023-03-18 | Outpatient (CLI) | payer MEDICARE ==
[2023-03-18 08:40] LABS: BASOPHILS % (AUTO) 1 % (0-10); EOSINOPHILS # (AUTO) 0.2 10^3/uL (0.0-0.3); EOSINOPHILS % (AUTO) 3 % (0-10); HEMATOCRIT 38 % (35-52); HEMOGLOBIN 11.7 g/dL (11.5-16.0); LYMPHOCYTES # (AUTO) 2.2 10^3/uL (1.0-4.0); LYMPHOCYTES % (AUTO) 30 % (12-44); MEAN CORPUSCULAR HEMOGLOBIN 31 pg (25-34); MEAN CORPUSCULAR HGB CONC 31 g/dL (32-36); MEAN CORPUSCULAR VOLUME 99 fL (80-99); MEAN PLATELET VOLUME 11.1 fL (9.0-12.2); MONOCYTES # (AUTO) 0.6 10^3/uL (0.0-1.0); MONOCYTES % (AUTO) 9 % (0-12); NEUTROPHILS # (AUTO) 4.1 10^3/uL (1.8-7.8); NEUTROPHILS % (AUTO) 57 % (42-75); PLATELET COUNT 180 10^3/uL (130-400); WHITE BLOOD COUNT 7.3 10^3/uL (4.3-11.0)
[2023-03-18 09:04] LABS: ALBUMIN 3.7 GM/DL (3.2-4.5)
[2023-03-18 09:05] LABS: CALCIUM 8.6 MG/DL (8.5-10.1)
[2023-03-18 09:07] LABS: TOTAL PROTEIN 6.4 GM/DL (6.4-8.2)
[2023-03-18 09:08] LABS: BILIRUBIN,TOTAL 0.4 MG/DL (0.1-1.0)
[2023-03-18 09:10] LABS: CREATININE SERUM 1.53 MG/DL (0.60-1.30)
== END ==
LOC: LAB 08:01
PROVIDERS: ATTEND Internal Medicine Hematology & Oncology
DX: D47.2 Monoclonal gammopathy (principal)
CPT/HCPCS: 36415; 80053; 82784; 83883; 85025

== ENCOUNTER → 2023-03-24 | Outpatient (CLI) | payer MEDICARE | LOC: ONC 13:04 | PROVIDERS: ATTEND Internal Medicine Hematology & Oncology | DX: D47.2 Monoclonal gammopathy (principal); E66.9 Obesity, unspecified; Z90.49 Acquired absence of other specified parts of digestive tract; E03.9 Hypothyroidism, unspecified; J44.9 Chronic obstructive pulmonary disease, unspecified; N18.9 Chronic kidney disease, unspecified | CPT/HCPCS: 99214 ==